=== PATIENT | female | born 1935 | race Hispanic/Latino ===

== ENCOUNTER 2017-08-28 11:44 | Emergency (ER) | payer MEDICARE, OTHER ==
[~2017-08-28] VITALS: Ht 149.9 cm; Wt 60.8 kg
[~2017-08-28 11:44] MED LIST: ADVAIR 250/501 EA INH; ASPIRIN81 M2 PO; ATIVAN1 MG PO; FISH OIL PO; FLOMAX0.4 MG PO; MICARDIS HCT 41 EACH PO; MONTELUKAST SOD10 MG PO; PANTOPRAZOLE SO40 MG PO; VENTOLIN HFA18 GM INH; Z.0.ACIPHEX20 MG; Z.0.MICARDIS80 MG PO; Z.0.MULTIVITAMINS1 E PO; [UNRECOGNIZED DRUG - OTHER] PO
[2017-08-28] MEDS ORDERED: ASPIRIN 81 MG CHEW TAB PO STA (12:03)
--- NOTE | 2017-08-28 13:18 | Diagnostic Imaging Report ---
PROCEDURE: A single AP view of the chest. COMPARISON: 04/28/17 INDICATIONS: SHORTNESS OF BREATH, LEFT HAND NUMBNESS FINDINGS: Lines/tubes: None. Lungs: The lungs are well inflated and clear. There is no evidence of pneumonia or pulmonary edema. Minimal bibasilar haziness, likely subsegmental atelectasis. Pleura: There is no pleural effusion or pneumothorax. Heart and mediastinum: The heart and the mediastinum are unremarkable. Aorta is calcified and tortuous. Bones: No acute bony abnormality. IMPRESSION: 1. No acute cardiopulmonary disease. 2. Minimal bibasilar haziness, likely subsegmental atelectasis. Dictated by: Gilberto Gatica M.D. on 08/28/2017 at 13:27 Electronically approved by: Gilberto Gatica M.D. on 08/28/2017 at 13:27
--- NOTE | 2017-08-28 13:25 | Diagnostic Imaging Report ---
Exam: Head CT without contrast History: Numbness in left hand Comparison studies: Brain MRI 01/25/2011. Technique: Axial images were obtained from the skull base to the vertex. Coronal and sagittal images reconstructed from the axial data. Intravenous contrast: None Findings: Scalp: No abnormalities. Bones: No fractures, blastic or lytic lesions. Brain sulci: Mildly prominent, but age appropriate. Ventricles: Normal in size and configuration. No hydrocephalus. Extra-axial spaces: No masses, no fluid collection. Parenchyma: No mass, acute hemorrhage or acute cortical vascular insults. A few scattered subtle hypodensities in the supratentorial white matter are nonspecific but most compatible with chronic small vessel ischemic changes. Small chronic insult in the right posterior cerebellum is new from the previous brain MRI. Sellar/suprasellar region: No abnormalities. 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 Incidental findings: Atherosclerotic calcifications in the carotid siphons. IMPRESSION: 1. No acute intracranial abnormalities. 2. Small chronic right cerebellar insult, new from previous exam. 3. No other significant changes from the previous brain MRI of 01/25/2011 when allowing for differences in technique. 4. Mild age-related generalized volume loss and chronic microvascular ischemic changes. Signed by: Dr. Tahir Mena M.D. on 08/28/2017 1:22 PM
[2017-08-28 13:54] LABS: BASOPHILS % 0.4 % (0.0-1.0); HEMATOCRIT 35.5 % (34.2-44.1); HEMOGLOBIN 12.2 g/dL (12.0-16.0); LYMPHOCYTES # (AUTO) 0.8 (1.0-3.2); LYMPHOCYTES % 14.5 % (18.0-39.1); MEAN CORPUSCULAR HEMOGLOBIN 32.7 pg (28-32); MEAN CORPUSCULAR HGB CONC 34.4 g/dL (31-35); MEAN CORPUSCULAR VOLUME 95.2 fL (81-99); MONOCYTES # (AUTO) 0.3 (0.2-0.8); MONOCYTES % 5.1 % (4.4-11.3); NEUTROPHILS # (AUTO) 4.4 (2.1-6.9); NEUTROPHILS % 79.6 % (38.7-80.0); PLATELET COUNT 173 x10e3/uL (140-360); RED BLOOD COUNT 3.73 x10e6/uL (3.6-5.1); RED CELL DISTRIBUTION WIDTH 13.2 % (11.7-14.4)
[2017-08-28 14:09] LABS: INR 0.95; PROTHROMBIN TIME 13.1 seconds (11.9-14.5)
[2017-08-28 14:12] LABS: ALBUMIN 4.2 g/dL (3.5-5.0); ALBUMIN/GLOBULIN RATIO 1.3 (0.8-2.0); ANION GAP 12.5 mmol/L (8-16); CALCIUM 9.5 mg/dL (8.4-10.2); CREATININE, SERUM 0.97 mg/dL (0.57-1.11); POTASSIUM 3.5 mmol/L (3.5-5.1)
[2017-08-28 14:19] LABS: CREATINE KINASE MB 1.6 ng/mL (0.00-5.00)
[2017-08-28] MEDS ORDERED: SULFAMETHOXAZO1 EAC1 PO (14:57)
[2017-08-28] MEDS ORDERED: CALTRATE PLUS1 EACH PO (14:57)
[2017-08-28] MEDS ORDERED: LEVAQUIN250 MG PO (14:57)
[2017-08-28] MEDS ORDERED: METHYLPREDNISOLONE SOD SUCC 125 MG/2ML VIAL IV ONE (15:45)
[2017-08-28] MEDS ORDERED: PREDNISONE20 MG PO (15:52)
[2017-08-28] MEDS ORDERED: ALBUTEROL0.63 MG/3 IH (15:52)
== END 2017-08-28 16:15 | disposition home or self-care (01) ==
LOC: ER 11:44
DX: R06.09 Other forms of dyspnea (principal); J20.9 Acute bronchitis, unspecified; R20.2 Paresthesia of skin
CPT/HCPCS: 36415; 70450; 71010; 80053; 82550; 82553; 83690; 83880; 84484; 85025; 85610; 93005; 99284; J2930; 71045

== ENCOUNTER → 2017-09-02 | Emergency (ER) | payer MEDICARE, OTHER ==
[~2017-09-02] VITALS: Ht 149.9 cm; Wt 60.8 kg
[~2017-09-02] MED LIST changes: +ALBUTEROL0.63 MG/3 IH; +CALTRATE PLUS1 EACH PO; +LEVAQUIN250 MG PO; +PREDNISONE20 MG PO; +SULFAMETHOXAZO1 EAC1 PO
== END | disposition home or self-care (01) ==
LOC: ER 20:50
DX: R06.00 Dyspnea, unspecified (principal); R05 Cough; J20.9 Acute bronchitis, unspecified; I10 Essential (primary) hypertension
CPT/HCPCS: 99281

== ENCOUNTER → 2018-02-16 | Day surgery (SDC) | payer MEDICARE, OTHER ==
[2018-02-14 10:38] LABS: BASOPHILS % 0.6 % (0.0-1.0); EOSINOPHILS % 0.4 % (0.0-6.0); HEMATOCRIT 31.8 % (34.2-44.1); HEMOGLOBIN 10.8 g/dL (12.0-16.0); LYMPHOCYTES # (AUTO) 1.4 (1.0-3.2); LYMPHOCYTES % 26.7 % (18.0-39.1); MEAN CORPUSCULAR HEMOGLOBIN 32.3 pg (28-32); MEAN CORPUSCULAR VOLUME 95.2 fL (81-99); MONOCYTES # (AUTO) 0.4 (0.2-0.8); MONOCYTES % 7.7 % (4.4-11.3); NEUTROPHILS # (AUTO) 3.3 (2.1-6.9); NEUTROPHILS % 64.2 % (38.7-80.0); PLATELET COUNT 200 x10e3/uL (140-360); RED BLOOD COUNT 3.34 x10e6/uL (3.6-5.1); RED CELL DISTRIBUTION WIDTH 11.7 % (11.7-14.4)
[~2018-02-16] MED LIST changes: +AZO STANDARD97.5 MG PO; +BACTRIM 400-801 EACH; +BELLADONNA/OPIUM 30 MG SUPP RC ONE; +CEFTRIAXONE SOD 1 GM VIAL ONE; +DEXAMETHASONE SOD PHOS INJ 4 MG/ML VIAL ONE; +FENTANYL CITRATE/PF 100MCG/2 ML INJ ONE; +GENTAMICIN SULFATE 320 MG in SODIUM CHLORIDE 0.9% 100 ML 100 ML IV SCH; +IOPAMIDOL 300MG/ML 50ML INFUS..BTL IV ONE; +LIDOCAINE HCL 2% LOCAL INJ 5 ML SDV VIAL INJ ONE; +MELOXICAM7.5 MG PO; +ONDANSETRON HCL INJ 2 MG/ML VIAL ONE; +PEPCID20 MG PO; +PROPOFOL IV EMULSION 10 MG/ML 20 ML VIAL ONE; +SEVOFLURANE INHAL SOLN 250 ML PEN BTL ONE
[2018-02-16 12:36] LABS: ANION GAP 13.2 mmol/L (8-16); BLOOD UREA NITROGEN 15 mg/dL (7-26); BUN/CREATININE RATIO 19 (6-25); CALCIUM 9.5 mg/dL (8.4-10.2); CARBON DIOXIDE 25 mmol/L (22-29); CHLORIDE 98 mmol/L (98-107); CREATININE, SERUM 0.78 mg/dL (0.57-1.11); EST GLOMERULAR FILTRATION RATE > 60 ML/MIN (60-); GLUCOSE 98 mg/dL (74-118); POTASSIUM 4.2 mmol/L (3.5-5.1); SODIUM 132 mmol/L (136-145)
--- NOTE | 2018-04-05 01:38 | Operative Report ---
DATE OF PROCEDURE: February 16, 2018 PREOPERATIVE DIAGNOSES: 1. Gross hematuria. 2. Urinary tract infections. POSTOPERATIVE DIAGNOSES: 1. Gross hematuria. 2. Urinary tract infections. 3. Mild cystocele. 4. Mild rectocele. 5. Atrophic (senile) vaginitis. OPERATIONS PERFORMED: 1. Cystourethroscopy with bilateral ureteral catheterization and retrograde ureteropyelography (separate procedure performed for the urinary tract infections). 2. Interpretation of retrograde ureteropyelography. 3. Supervision of fluoroscopy, no radiologist present. 4. Cystourethroscopy with directed bladder biopsy (separate procedure performed for the abnormal-appearing bleeding bladder tissue). 5. Pelvic examination under anesthesia. ANESTHESIA: General. COMPLICATIONS: None. CLINICAL SUMMARY: Maria L Stokes is an 82-year-old woman with hematuria and urinary tract infections. She is brought for evaluation. She is aware of the risks of bleeding, infection, injury to adjacent structures, need for additional procedures, and elected to proceed. OPERATIVE PROCEDURE IN DETAIL: Informed consent was verified. Maria L Stokes was properly identified, taken to the operating room, and placed on the cystoscopy table in the supine position. Anesthesia was uneventfully begun. The patient was then carefully and gently repositioned in the dorsal lithotomy position with all pressure points well padded. Her genitalia were prepared and draped in usual sterile fashion. The 22.5-Cypriot cystoscope sheath with the obturator in place was atraumatically inserted into patient's urethra and the bladder was drained. Panendoscopy revealed glomerulations with diffuse cracking and oozing of the bladder wall. No suspicious specific lesions were identified, but there were bleeding points throughout the bladder wall. An 8-Cypriot catheter was used to cannulate each ureter, and retrograde ureteral pyelograms were performed. Interpretation of retrograde ureteropyelography: Contrast was instilled in retrograde fashion bilaterally. There were no tumors, no stones, and no diverticula. Unobstructed drainage was observed bilaterally fluoroscopically. There was mild fullness in both upper collecting systems, but without obstruction. Cold cup biopsy forceps were then utilized to biopsy the posterior as well as anterior portions of the bladder. Multiple biopsies were obtained. All these biopsies sites were fulgurated with a Bugbee electrode. Excellent hemostasis was achieved. Nevertheless, 22-Cypriot Thomson catheter was placed. Pelvic examination under anesthesia revealed atrophic vaginitis with a grade 1 cystorectocele. No abnormal palpable pelvic masses could be appreciated. The patient was then uneventfully reversed from anesthesia and taken to recovery room in stable condition. Explicit postoperative instructions were given, and will follow the patient up in the office as well as on an ongoing basis. Job#: [id number]
== END | disposition home or self-care (01) ==
LOC: OR 10:41
PROVIDERS: ATTEND Urology
DX: N39.0 Urinary tract infection, site not specified (principal); D30.3 Benign neoplasm of bladder; N32.89 Other specified disorders of bladder; R31.0 Gross hematuria; N81.10 Cystocele, unspecified; N81.89 Other female genital prolapse; R35.1 Nocturia; N81.6 Rectocele; N95.2 Postmenopausal atrophic vaginitis; I10 Essential (primary) hypertension; K21.9 Gastro-esophageal reflux disease without esophagitis; J45.909 Unspecified asthma, uncomplicated; F41.9 Anxiety disorder, unspecified; Z01.810 Encounter for preprocedural cardiovascular examination; Z01.812 Encounter for preprocedural laboratory examination
CPT/HCPCS: 36415 ×2; 52214; 74420; 80048; 85025; 87086; 88305; 88342; 93005; C1758; J0696; J1100; J1580; J2001; J2405; Q9967

== ENCOUNTER 2018-03-22 18:34 | Emergency (ER) | payer MEDICARE ==
[~2018-03-22] VITALS: Ht 172.7 cm; Wt 55.8 kg
[~2018-03-22 18:34] MED LIST changes: -BELLADONNA/OPIUM 30 MG SUPP RC ONE; -CEFTRIAXONE SOD 1 GM VIAL ONE; -DEXAMETHASONE SOD PHOS INJ 4 MG/ML VIAL ONE; -FENTANYL CITRATE/PF 100MCG/2 ML INJ ONE; -GENTAMICIN SULFATE 320 MG in SODIUM CHLORIDE 0.9% 100 ML 100 ML IV SCH; -IOPAMIDOL 300MG/ML 50ML INFUS..BTL IV ONE; -LIDOCAINE HCL 2% LOCAL INJ 5 ML SDV VIAL INJ ONE; -MELOXICAM7.5 MG PO; -ONDANSETRON HCL INJ 2 MG/ML VIAL ONE; -PEPCID20 MG PO; -PROPOFOL IV EMULSION 10 MG/ML 20 ML VIAL ONE; -SEVOFLURANE INHAL SOLN 250 ML PEN BTL ONE
--- NOTE | 2018-03-22 20:16 | Diagnostic Imaging Report ---
EXAM: RIBS UNILAT W/CXR- HOPD DATE: 03/22/2018 7:34 PM INDICATION: \[id number] \S\[id number] COMPARISON: None FINDINGS: Single view chest: The heart is not enlarged. Aortic vascular calcifications and tortuosity of the descending thoracic aorta noted. There is minimal atelectasis/scarring in the left lung base with postsurgical changes at the GE junction. No pneumothorax is identified. Left rib series: Rib radiographs are underpenetrated which limits evaluation. No definite depressed rib fracture identified. IMPRESSION: Within limitations of technique, no definite acute finding. Signed by: Dr. Umair Goldstein MD on 03/22/2018 8:13 PM
[2018-03-22] MEDS ORDERED: MELOXICAM7.5 MG PO (20:59)
[2018-03-22] MEDS ORDERED: PEPCID20 MG PO (20:59)
== END 2018-03-22 21:17 | disposition home or self-care (01) ==
LOC: FSED 18:34
DX: R07.89 Other chest pain (principal); S20.212A Contusion of left front wall of thorax, initial encounter; W01.0XXA Fall on same level from slipping, tripping and stumbling without subsequent striking against object, initial encounter; Y93.01 Activity, walking, marching and hiking; Y92.008 Other place in unspecified non-institutional (private) residence as the place of occurrence of the external cause
CPT/HCPCS: 71101; 99283

== ENCOUNTER 2018-12-10 11:57 | Emergency (ER) | payer MEDICARE ==
[~2018-12-10] VITALS: Ht 149.9 cm; Wt 53.5 kg
[~2018-12-10 11:57] MED LIST changes: +MELOXICAM7.5 MG PO; +PEPCID20 MG PO
--- OUTSIDE RECORDS SUMMARY | 2018-12-10 12:01 | XMS REPORT | Summary of Care ---
Author Author Aylin Donald M.A. Organization Unknown Address Unknown Phone Unavailable Care Team Providers Care Wildlife Manager Name Role Phone Aylin Donald M.A. Unavailable Unavailable TE SPIVEY MD Unavailable Unavailable ESTHER GRIJALVA Unavailable Unavailable Unavailable Unavailable Functional Status Name Dates Details Functional status health issues are not documented Status: Name Dates Details Cognitive status health issues are not documented Status: Problems Name Dates Details Bilateral hearing loss (389.9, H91.93) Status: Active Medications Name Dates Details Telmisartan TABS Active Pantoprazole Sodium TBEC * Refills: 0 Active Tamsulosin HCl CAPS * Refills: 0 Active Levothyroxine Sodium TABS * Refills: 0 Active Allergies and Adverse Reactions Name Dates Details No Known Drug Allergies (Allergy) Status: Active Past Medical History Name Dates Details History of arthritis (V13.4, Z87.39) Status: Resolved History of hypertension (V12.59, Z86.79) Status: Resolved Procedures Procedure Dates Details History of Hernia Repair Completed History of Silver bunionectomy Completed Immunization Name Dates Details Immunizations not documented Family History Name Dates Details No significant family history (V49.89, Z78.9) Comments: Family History Status: Active Social History Name Dates Details - Status: Name Dates Details Never smoker Vital Signs Date Test Result Details No Known Vitals to report Results Date Description Value Details Results not documented Plan of Care Name Dates Details Planned Observations Planned Goals not documented Instructions Name Dates Details Instructions not documented Encounters Appointment; TE SPIVEY M.D. Encounter Diagnosis: Problem not documented On: 27-Aug-2018 13:15 Appointment; ESTHER AVILA Encounter Diagnosis: Problem not documented On: 21-Sep-2018 13:00 Appointment; TE SPIVEY M.D. Encounter Diagnosis: Problem not documented On: 21-Sep-2018 13:30 Appointment; TE SPIVEY M.D. Encounter Diagnosis: Problem not documented On: 24-Sep-2018 15:00 Appointment; ESTHER AVILA Encounter Diagnosis: Problem not documented On: 20-Nov-2018 15:30
--- OUTSIDE RECORDS SUMMARY | 2018-12-10 12:01 | XMS REPORT | Continuity of Care Document ---
Author Author [facility] Interface Address Unknown Phone Unavailable Problems Problem Status Onset Date Classification Date Reported Comments Source STRESS FX LEFT FOOT 4TH Active 01/03/2018 [facility] 553.3/280.9/787.20 Active 11/04/2014 [facility] UNK Active 11/04/2014 [facility] RIGHT SHOULDER Active 02/10/2014 [facility] Asthma Active Problem 01/28/2018 [facility] COPD - Chronic obstructive pulmonary disease Active Problem 01/28/2018 [facility] Hiatal hernia Active Problem 01/28/2018 [facility] Hypertension Active Problem 01/28/2018 [facility] Bladder mass Active Problem 03/23/2018 [facility] Hematuria Active Problem 03/23/2018 [facility] UTI Active Problem 03/23/2018 [facility] Medications Medication Details Route Status Patient Instructions Ordering Provider Order Date Source Famotidine (Pepcid) 20 Mg Tablet Twice A Day Active take while on meloxicam to prevent stomach upset/irritation Juan 03/22/2018 [facility] Meloxicam 7.5 Mg Tablet Daily Active Gil 03/22/2018 [facility] Calcium Carb/Vit D3/Minerals (Caltrate Plus Tablet) 1 Each Tablet, 1 Tab Oral Daily Active 02/14/2018 [facility] Pantoprazole Sodium (Protonix) 40 Mg Tablet.dr, 40 Mg Oral Daily Active 02/14/2018 [facility] Levofloxacin (Levaquin) 250 Mg Tablet, 250 Mg Oral Daily Active 09/02/2017 [facility] Sulfamethoxazole/Trimethoprim (Sulfamethoxazole-Tmp Ds Tablet) 1 Each Tablet, 1 Tab Oral Daily Active 09/02/2017 [facility] Tamsulosin Hcl (Flomax*) 0.4 Mg Cap, 0.4 Mg Oral Daily Active 09/02/2017 [facility] Albuterol Sulfate 0.63 Mg/3 Ml Vial.neb, 1-2 Inh Inhalation Every Two Hours as needed for Shortness Of Breath Active [facility] 08/28/2017 [facility] Prednisone 20 Mg Tab, 40 Mg Oral Daily Active [facility] 08/28/2017 [facility] Montelukast Sodium 10 Mg Tablet, 40 Mg Oral Daily Active 09/16/2016 [facility] Fish Oil 0 Refill(s) Active 11/11/2014 [facility] telmisartan 0 Refill(s) Active 11/11/2014 [facility] montelukast 10 mg oral tablet 10 mg=1 tab, PO, Bedtime, # 30 tab, 0 Refill(s) Active 11/11/2014 [facility] pantoprazole 40 mg oral enteric coated tablet 40 mg=1 tab, PO, Daily, # 30 tab, 0 Refill(s) Active 11/11/2014 [facility] Ventolin HFA 90 mcg/inh inhalation aerosol with adapter 2 puff, INHALATION, QID, # 34 gm, 0 Refill(s) Active 11/11/2014 [facility] Aspirin 81 Mg Tablet, 81 Mg Oral Daily Active 10/21/2014 [facility] Ca Citrate/Mgox/Vit D3/B6/Min (Citracal Plus Tablet) 1 Each Tablet, 1 Each Oral Daily Active 10/21/2014 [facility] Fish Oil , Oral Daily Active 10/21/2014 [facility] Multivitamin (Multivitamins) 1 Each Tab.chew, Oral Daily Active 10/21/2014 [facility] Rabeprazole Sodium (Aciphex) 20 Mg Tablet., Active 10/21/2014 [facility] Salmeterol Xinaf/Fluticasone (Advair 250/50) 1 Ea Disk, 1 Ea Inhalation as needed Active 10/21/2014 [facility] Telmisartan (Micardis) 80 Mg Tablet, 80 Mg Oral Daily Active 10/21/2014 [facility] Pantoprazole Sodium (Protonix) 40 Mg Tablet. Daily Active [facility] Phenazopyridine Hcl (Azo Standard) 97.5 Mg Tablet Daily Active [facility] Sulfamethoxazole/Trimethoprim (Bactrim 400-80 Mg Tablet) 1 Each Tablet Twice A Day Active [facility] Tamsulosin Hcl (Flomax*) 0.4 Mg Cap Daily Active [facility] Telmisartan/Hydrochlorothiazid (Micardis Hct 40-12.5 Mg Tablet) 1 Each Tablet Daily Active [facility] Allergies, Adverse Reactions, Alerts Substance Category Reaction Severity Reaction type Status Date Reported Comments Source No Known Drug Allergies Mild Allergy to Substance Active 03/22/2018 [facility] Immunizations Immunization Date Given Site Status Last Updated Comments Source Results Order Name Results Value Reference Range Date Interpretation Comments Source Estimated glomerular filtration rate (GFR) determination Estimated glomerular filtration rate (GFR) determination null 60 02/16/2018 [facility] Glucose measurement Glucose measurement 98 74 - 118 02/16/2018 [facility] Serum or plasma anion gap Serum or plasma anion gap 13.2 8 - 16 02/16/2018 [facility] Serum or plasma calcium measurement (mass/volume) Serum or plasma calcium measurement (mass/volume) 9.5 8.4 - 10.2 02/16/2018 [facility] Serum or plasma carbon dioxide, total measurement (moles/volume) Serum or plasma carbon dioxide, total measurement (moles/volume) 25 22 - 29 02/16/2018 [facility] Serum or plasma chloride measurement (moles/volume) Serum or plasma chloride measurement (moles/volume) 98 98 - 107 02/16/2018 [facility] Serum or plasma creatinine measurement (mass/volume) Serum or plasma creatinine measurement (mass/volume) 0.78 0.57 - 1.11 02/16/2018 [facility] Serum or plasma potassium measurement (moles/volume) Serum or plasma potassium measurement (moles/volume) 4.2 3.5 - 5.1 02/16/2018 [facility] Serum or plasma sodium measurement (moles/volume) Serum or plasma sodium measurement (moles/volume) 132 136 - 145 02/16/2018 [facility] Serum or plasma urea nitrogen measurement (mass/volume) Serum or plasma urea nitrogen measurement (mass/volume) 15 7 - 26 02/16/2018 [facility] Serum or plasma urea nitrogen/creatinine mass ratio Serum or plasma urea nitrogen/creatinine mass ratio 19 6 - 25 02/16/2018 [facility] Automated blood basophil count (count/volume) Automated blood basophil count (count/volume) 0.0 0.0 - 0.1 02/14/2018 [facility] Automated blood basophil count as percentage of total leukocytes Automated blood basophil count as percentage of total leukocytes 0.6 0.0 - 1.0 02/14/2018 [facility] Automated blood eosinophil count Automated blood eosinophil count 0.0 0.0 - 0.4 02/14/2018 [facility] Automated blood eosinophil count as percentage of total leukocytes Automated blood eosinophil count as percentage of total leukocytes 0.4 0.0 - 6.0 02/14/2018 [facility] Automated blood hematocrit (volume fraction) Automated blood hematocrit (volume fraction) 31.8 34.2 - 44.1 02/14/2018 [facility] Automated blood lymphocyte count as percentage ot total leukocytes Automated blood lymphocyte count as percentage ot total leukocytes 26.7 18.0 - 39.1 02/14/2018 [facility] Automated blood monocyte count as percentage of total leukocytes Automated blood monocyte count as percentage of total leukocytes 7.7 4.4 - 11.3 02/14/2018 [facility] Automated blood neutrophil count Automated blood neutrophil count 3.3 2.1 - 6.9 02/14/2018 [facility] Automated blood platelet count (count/volume) Automated blood platelet count (count/volume) 200 140 - 360 02/14/2018 [facility] Automated blood segmented neutrophil count as percentage of total leukocytes Automated blood segmented neutrophil count as percentage of total leukocytes 64.2 38.7 - 80.0 02/14/2018 [facility] Automated erythrocyte mean corpuscular hemoglobin (mass per erythrocyte) Automated erythrocyte mean corpuscular hemoglobin (mass per erythrocyte) 32.3 28 - 32 02/14/2018 [facility] Automated erythrocyte mean corpuscular hemoglobin concentration measurement (mass/volume) Automated erythrocyte mean corpuscular hemoglobin concentration measurement (mass/volume) 34.0 31 - 35 02/14/2018 [facility] Automated erythrocyte mean corpuscular volume Automated erythrocyte mean corpuscular volume 95.2 81 - 99 02/14/2018 [facility] Blood erythrocytes automated count (number/volume) Blood erythrocytes automated count (number/volume) 3.34 3.6 - 5.1 02/14/2018 [facility] Blood hemoglobin measurement (moles/volume) Blood hemoglobin measurement (moles/volume) 10.8 12.0 - 16.0 02/14/2018 [facility] Blood leukocytes automated count (number/volume) Blood leukocytes automated count (number/volume) 5.06 4.8 - 10.8 02/14/2018 [facility] Blood lymphocytes count (number/volume) Blood lymphocytes count (number/volume) 1.4 1.0 - 3.2 02/14/2018 [facility] Blood monocytes automated count (number/volume) Blood monocytes automated count (number/volume) 0.4 0.2 - 0.8 02/14/2018 [facility] Red Cell Distribution Width 11.7 11.7 - 14.4 02/14/2018 [facility] IM GRANULOCYTES % 0.4 0.0 - 1.0 02/14/2018 [facility] Absolute Immature Granulocyte (auto 0.02 0 - 0.1 02/14/2018 [facility] Bone scan 3 phase NM Bone scan 3 phase NM Bone scan 3 phase NM CLINICAL HISTORY: - stress fracture left 4th metatarsal. ; COMPARISON: none TECHNIQUE: 27 mCi of technetium 99m MDP were administered intravenously. Flow, blood pool and delayed images of both feet were performed in AP, PA and lateral projections. IV Site: Left Antecubital FINDINGS: The flow images are relatively symmetric and do not demonstrate any significant asymmetry in flow. The blood pool images demonstrate mild to moderate increase in tracer activity in the hindfoot in the region of the left ankle. The delayed images demonstrate persistent increase in tracer activity in the hindfoot region near the ankle. No discrete focus of abnormal activity is noted in the left fourth metatarsal bone. IMPRESSION: No discrete focus of abnormal activity is noted in the region of left fourth metatarsal bone. SL: [id number] 01/25/2018 - - Read by: Jose Daniel Granger MD Dictated Date/time: 01/25/18 15:25 Electronically Signed by: Jose Daniel Granger MD 01/25/18 15:29 FINAL REPORT [facility] INR in Platelet poor plasma by Coagulation assay INR in Platelet poor plasma by Coagulation assay 0.95 08/28/2017 [facility] Plasma globulin measurement (mass/volume) Plasma globulin measurement (mass/volume) 3.2 2.3 - 3.5 08/28/2017 [facility] Prothrombin time (PT) in platelet poor plasma by coagulation assay Prothrombin time (PT) in platelet poor plasma by coagulation assay 13.1 11.9 - 14.5 08/28/2017 [facility] Serum or plasma alanine aminotransferase measurement (enzymatic activity/volume) Serum or plasma alanine aminotransferase measurement (enzymatic activity/volume) 13 0 - 55 08/28/2017 [facility] Serum or plasma albumin measurement (mass/volume) Serum or plasma albumin measurement (mass/volume) 4.2 3.5 - 5.0 08/28/2017 [facility] Serum or plasma albumin/globulin mass ratio Serum or plasma albumin/globulin mass ratio 1.3 0.8 - 2.0 08/28/2017 [facility] Serum or plasma alkaline phosphatase measurement (enzymatic activity/volume) Serum or plasma alkaline phosphatase measurement (enzymatic activity/volume) 72 40 - 150 08/28/2017 [facility] Serum or plasma creatine kinase MB measurement (mass/volume) Serum or plasma creatine kinase MB measurement (mass/volume) 1.60 0.00 - 5.00 08/28/2017 [facility] Serum or plasma creatine kinase measurement (enzymatic activity/volume) Serum or plasma creatine kinase measurement (enzymatic activity/volume) 57 29 - 168 08/28/2017 [facility] Serum or plasma lipase measurement (enzymatic activity/volume) Serum or plasma lipase measurement (enzymatic activity/volume) 38 8 - 78 08/28/2017 [facility] Serum or plasma protein measurement (mass/volume) Serum or plasma protein measurement (mass/volume) 7.4 6.5 - 8.1 08/28/2017 [facility] Serum or plasma total bilirubin measurement (mass/volume) Serum or plasma total bilirubin measurement (mass/volume) 0.3 0.2 - 1.2 08/28/2017 [facility] Troponin I measurement by highly sensitive enzyme immunoassay Troponin I measurement by highly sensitive enzyme immunoassay 0.009 0 - 0.300 08/28/2017 [facility] Aspartate Amino Transf (AST/SGOT) 15 5 - 34 08/28/2017 [facility] B-Type Natriuretic Peptide 74.5 0 - 100 08/28/2017 [facility] Vital Signs Vital Sign Value Date Comments Source Systolic (mm Hg) 123 11/12/2014 [facility] Diastolic (mm Hg) 64 11/12/2014 [facility] Respitory Rate 18 11/12/2014 [facility] Heart Rate 70 11/12/2014 [facility] Weight 66.591 11/11/2014 [facility] Height 149.86 cm 11/11/2014 [facility] BMI Calculated 29.65 11/11/2014 [facility] Encounters Location Location Details Encounter Type Encounter Number Reason For Visit Attending Provider ADM Date DC Date Status Source [facility] OP Therapy Patients [id number] Uriel Weir 02/10/2014 03/12/2014 [facility] Bedded Outpatient [id number] Brandin Bacon 11/12/2014 11/12/2014 [facility] [id number] SHERRELL BARROW MD 06/13/2017 [facility] Departed Emergency Room [id number] NANCY BYRNE MD 08/28/2017 08/28/2017 [facility] Departed Emergency Room [id number] HENNY TORRES MD 09/02/2017 09/02/2017 [facility] Outpatient [id number] Marvin Yuen 01/25/2018 01/26/2018 [facility] [id number] ELIDA GILL MD 02/16/2018 [facility] Registered Emergency Room [id number] DEVYN GIL MD 03/22/2018 [facility] Procedures Procedure Code Date Perfomer Comments Source Cystoscopy with retrograde pyelography [id number] 02/16/2018 JAIRO [facility] Computed tomography of brain without radiopaque contrast [id number] 08/28/2017 CATY [facility] Colonoscopy [id number] 06/06/2014 [facility] Esophagogastroduodenoscopy [id number] 06/06/2014 [facility] section [id number] [facility] Adri-Ezequiel operation for hiatal hernia repair with esophagogastroplasty<sup>1</sup> [id number] 2005 [facility]
--- OUTSIDE RECORDS SUMMARY | 2018-12-10 12:01 | XMS REPORT | Clinical Summary ---
Author Author Mark [facility] Organization [facility] Address Unknown Phone Unavailable Care Team Providers Care Toe Former St[employer] Name Role Phone PCP Unavailable Allergies No Known Allergies Medications End Date Status Medication Sig Dispensed Refills Start Date Active pantoprazole (PROTONIX) Take 40 mg by 0 40 MG EC tablet mouth daily. Active telmisartan-hydrochloroth Take 1 tablet 0 iazid (MICARDIS HCT) by mouth 40-12.5 mg per tablet daily. Active multivitamin (THERAGRAN) Take 1 tablet 0 tablet by mouth daily. Active calcium carbonate-vitamin Take 1 tablet 0 D3 500 mg-200 unit per by mouth tablet daily. Active pantoprazole (PROTONIX) TAKE ONE 90 tablet 0 40 MG EC tablet TABLET BY 9 MOUTH EVERY DAY 02/02/2018 Discontinued pantoprazole (PROTONIX) TAKE ONE 90 tablet 0 40 MG EC tablet TABLET BY 8 MOUTH EVERY DAY 03/05/2018 Discontinued pantoprazole (PROTONIX) TAKE ONE 90 tablet 0 40 MG EC tablet TABLET BY 8 MOUTH EVERY DAY 08/06/2018 Discontinued pantoprazole (PROTONIX) TAKE ONE 90 tablet 0 40 MG EC tablet TABLET BY 8 MOUTH EVERY DAY 11/13/2018 Discontinued pantoprazole (PROTONIX) TAKE ONE 90 tablet 0 40 MG EC tablet TABLET BY 9 MOUTH EVERY DAY Active Problems Problem Noted Date Chronic obstructive pulmonary disease 09/27/2016 Encounters Care Team Description Date Type Specialty Isaias Silva MD 11/13/2018 Refill Gastroenterology Isaias Silva MD 08/06/2018 Refill Gastroenterology Isaias Silva MD 03/04/2018 Refill Gastroenterology Isaias Silva MD 02/02/2018 Refill Gastroenterology after 12/09/2017 Family History Medical History Relation Name Comments Diabetes Child Hypertension Child Relation Name Status Comments Child Social History Date Tobacco Use Types Packs/Day Years Used Never Smoker Alcohol Use Drinks/Week oz/Week Comments No Sex Assigned at Date Recorded Not on file Industry Job Start Date Occupation Not on file Not on file Not on file Travel End Travel History Travel Start No recent travel history available. Last Filed Vital Signs Not on file Plan of Treatment Health Maintenance Due Date Last Done Comments SHINGLES VACCINES (#1) 1984 65+ PNEUMOCOCCAL VACCINE 11/10/1999 (1 of 2 - PCV13) PNEUMOCOCCAL 11/10/1999 POLYSACCHARIDE VACCINE AGE 65 AND OVER INFLUENZA VACCINE 03/07/2019 Results Not on fileafter 12/09/2017 Insurance Payer Benefit Subscriber ID Type Phone Address Plan / Group HUMANA MEDICARE HUMANA xxxxxxxxx PPO MEDICARE PPO/PFFS/E [facility] ([place] [place] [address] Advance Directives Patient has advance care planning documents on file. For more information, andrey granado contact: Mark Manjarrez [address] [place] [address]
--- NOTE | 2018-12-10 13:31 | Diagnostic Imaging Report ---
Exam: Sacrum and coccyx, 2 views History: Fall, pain in tailbone Comparison: None. Findings: The bones are diffusely osteopenic, which limits evaluation. In addition, a large amount of rectal gas and stool limits evaluation of the low sacrum, coccyx, and pubic symphysis on the frontal radiographs. There is a step-off measuring 5 mm between the first and second coccygeal segments identified on the lateral radiograph. Transitional lumbosacral anatomy. Sacral foramina are intact superiorly. Sacroiliac joints are maintained. Impression: Acute mildly displaced fracture/dislocation between the first and second coccygeal segments. Signed by: Dr. Tahir Jones M.D. on 12/10/2018 1:28 PM
[2018-12-10 14:23] VITALS: BP 147/72
== END 2018-12-10 14:39 | disposition home or self-care (01) ==
LOC: FSED 11:57
DX: S32.2XXA Fracture of coccyx, initial encounter for closed fracture (principal); W18.30XA Fall on same level, unspecified, initial encounter; Y92.008 Other place in unspecified non-institutional (private) residence as the place of occurrence of the external cause; K21.9 Gastro-esophageal reflux disease without esophagitis
CPT/HCPCS: 72220; 99283

== ENCOUNTER → 2019-01-03 | Outpatient (CLI) | payer MEDICARE ==
--- NOTE | 2019-01-03 10:45 | Diagnostic Imaging Report ---
EXAM: CT Chest without contrast INDICATION: Pulmonary nodule COMPARISON: Chest and rib radiographs 03/22/2018. CT chest 09/22/2016. Multiple prior chest CTs dating back to 01/28/2014. TECHNIQUE: Chest was scanned utilizing a multidetector helical scanner from the lung apex through the level of the adrenal glands without administration of IV contrast. Coronal and sagittal reformations were obtained. Routine protocol was performed. RADIATION DOSE: Total DLP: 114.9 mGy*cm Dose modulation, iterative reconstruction, and/or weight based adjustment of the mA/kV was utilized to reduce the radiation dose to as low as reasonably achievable. COMPLICATIONS: None FINDINGS: LINES/ TUBES: None. LUNGS AND AIRWAYS: The central airways are patent. There is mild biapical pleural-parenchymal opacity, consistent with prior granulomatous disease. Scattered calcified granulomas, for example a 3 mm granuloma in the right upper lobe on series 3, image 20. Unchanged 8 mm right lower lobe ovoid lung nodule (series 3, image 50) since CT on 09/22/2016 and slightly increased in size from 7 mm on 01/28/2014. Scattered punctate noncalcified solid nodules, for example a 2 mm left lower lobe nodule on image 67 and a 1 mm right upper lobe nodule on image 35. There are mild lower lung and peripheral predominant reticular opacities with mild honeycombing, for example in the left lower lobe on image 100. Scattered mild emphysematous changes. Hyperinflated lungs with increased AP diameter of the thorax. PLEURA: The pleural spaces are clear. HEART AND MEDIASTINUM: The thyroid gland is not well evaluated. No mediastinal, hilar or axillary lymphadenopathy. No cardiomegaly or pericardial effusion. Scattered coronary atherosclerosis. Extensive atherosclerotic calcifications of the aortic arch and scattered atherosclerotic calcifications of the branch vessels. Small hiatal hernia. Mild distal esophageal wall thickening appears unchanged from prior studies. UPPER ABDOMEN: Limited non-contrast views of the upper abdomen abdomen. Paucity of intra-abdominal fat limits evaluation. Unchanged peripherally calcified lesion in the right hepatic dome, likely reflecting posttraumatic changes. 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 Postsurgical changes of the stomach. BONES: No acute osseous abnormality. No suspicious lytic or blastic lesions. Exaggerated thoracic kyphosis centered in the lower thoracic spine. SOFT TISSUES: Unremarkable. IMPRESSION: Unchanged appearance of 8 mm right lower lobe pulmonary nodule since CT on 09/22/2016 and slightly increased in size from 7 mm on 01/28/2014. Given relative stability, the nodule is likely benign. Mild lower lung predominant fibrotic changes. Similar appearance of partially calcified porcelain gallbladder. Small hiatal hernia with mild distal esophageal wall thickening, which may be secondary to reflux and appears similar to prior studies. If clinically indicated, endoscopy may be considered. Signed by: Dr. Winter Alonso MD on 01/03/2019 10:42 AM
== END ==
LOC: CT 09:03
PROVIDERS: ATTEND Internal Medicine Critical Care Medicine
DX: R91.1 Solitary pulmonary nodule (principal)
CPT/HCPCS: 71250

== ENCOUNTER 2019-01-30 18:38 | Emergency (ER) | payer MEDICARE ==
[~2019-01-30] VITALS: Ht 152.4 cm; Wt 56.7 kg
--- OUTSIDE RECORDS SUMMARY | 2019-01-30 18:42 | XMS REPORT | Clinical Summary ---
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 For more information, andrey granado contact: Mark Manjarrez [address] [place] [address]
[2019-01-30] MEDS ORDERED: KETOROLAC TROMETHAMINE 60 MG/2 ML VIAL IM ONE (21:30)
[2019-01-30] MEDS ORDERED: KETOROLAC TROMETHAMINE 30 MG/ML VIAL ONE (21:36)
[2019-01-30 22:09] VITALS: BP 156/70
== END 2019-01-30 22:14 | disposition home or self-care (01) ==
LOC: FSED 18:38
DX: S73.191A Other sprain of right hip, initial encounter (principal); X50.1XXA Overexertion from prolonged static or awkward postures, initial encounter; Y92.008 Other place in unspecified non-institutional (private) residence as the place of occurrence of the external cause; I10 Essential (primary) hypertension; E03.9 Hypothyroidism, unspecified
CPT/HCPCS: 99282; J1885 ×2

== ENCOUNTER 2019-03-06 14:56 | Inpatient (IN) | payer MEDICARE ==
[~2019-03-06] VITALS: Ht 149.9 cm; Wt 55.8 kg
--- OUTSIDE RECORDS SUMMARY | 2019-03-06 14:59 | XMS REPORT | Continuity of Care Document ---
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 Role Phone [employer] Information Lynk Unavailable Unavailable Problems Problem Status Onset Date Classification Date Reported Comments Source STRESS FX LEFT FOOT 4TH Active 01/03/2018 [facility] UNK Active 11/04/2014 [facility] 553.3/280.9/787.20 Active 11/04/2014 [facility] RIGHT SHOULDER Active 02/10/2014 [facility] Asthma Active Problem 01/28/2018 [facility] COPD - Chronic obstructive pulmonary disease Active Problem 01/28/2018 [facility] Hiatal hernia Active Problem 01/28/2018 [facility] Hypertension Active Problem 01/28/2018 [facility] Bladder mass Active Problem 01/31/2019 [facility] Hematuria Active Problem 01/31/2019 [facility] UTI Active Problem 01/31/2019 [facility] Medications Medication Details Route Status Patient Instructions Ordering Provider Order Date Source Famotidine (Pepcid) 20 Mg Tablet Twice A Day Active take while on meloxicam to prevent stomach upset/irritation Gil 03/22/2018 [facility] Meloxicam 7.5 Mg Tablet Daily Active Gil 03/22/2018 [facility] Famotidine (Pepcid) 20 Mg Tablet Twice A Day Active take while on meloxicam to prevent stomach upset/irritation Gil 03/22/2018 [facility] Meloxicam 7.5 Mg Tablet Daily Active Gil 03/22/2018 [facility] Calcium Carb/Vit D3/Minerals (Caltrate Plus Tablet) 1 Each Tablet, 1 Tab Oral Daily Active 02/14/2018 [facility] Pantoprazole Sodium (Protonix) 40 Mg Tablet.dr, 40 Mg Oral Daily Active 02/14/2018 [facility] Levofloxacin (Levaquin) 250 Mg Tablet, 250 Mg Oral Daily Active 09/02/2017 [facility] Sulfamethoxazole/Trimethoprim (Sulfamethoxazole-Tmp Ds Tablet) 1 Each Tablet, 1 Tab Oral Daily Active 09/02/2017 [facility] Tamsulosin Hcl (Flomax*) 0.4 Mg Cap, 0.4 Mg Oral Daily Active 09/02/2017 [facility] Levofloxacin (Levaquin) 250 Mg Tablet, 250 Mg Oral Daily Active 09/02/2017 [facility] Sulfamethoxazole/Trimethoprim (Sulfamethoxazole-Tmp Ds Tablet) 1 Each Tablet, 1 Tab Oral Daily Active 09/02/2017 [facility] Tamsulosin Hcl (Flomax*) 0.4 Mg Cap, 0.4 Mg Oral Daily Active 09/02/2017 [facility] Albuterol Sulfate 0.63 Mg/3 Ml Vial.neb, 1-2 Inh Inhalation Every Two Hours as needed for Shortness Of Breath Active [facility] 08/28/2017 [facility] Prednisone 20 Mg Tab, 40 Mg Oral Daily Active [facility] 08/28/2017 [facility] Albuterol Sulfate 0.63 Mg/3 Ml Vial.neb, 1-2 Inh Inhalation Every Two Hours as needed for Shortness Of Breath Active [facility] 08/28/2017 [facility] Prednisone 20 Mg Tab, 40 Mg Oral Daily Active [facility] 08/28/2017 [facility] Montelukast Sodium 10 Mg Tablet, 40 Mg Oral Daily Active 09/16/2016 [facility] Montelukast Sodium 10 Mg Tablet, 40 Mg Oral Daily Active 09/16/2016 [facility] Fish Oil 0 Refill(s) Active 11/11/2014 [facility] telmisartan 0 Refill(s) Active 11/11/2014 [facility] montelukast 10 mg oral tablet 10 mg=1 tab, PO, Bedtime, # 30 tab, 0 Refill(s) Active 11/11/2014 [facility] pantoprazole 40 mg oral enteric coated tablet 40 mg=1 tab, PO, Daily, # 30 tab, 0 Refill(s) Active 11/11/2014 [facility] Ventolin HFA 90 mcg/inh inhalation aerosol with adapter 2 puff, INHALATION, QID, # 34 gm, 0 Refill(s) Active 11/11/2014 [facility] Aspirin 81 Mg Tablet, 81 Mg Oral Daily Active 10/21/2014 [facility] Ca Citrate/Mgox/Vit D3/B6/Min (Citracal Plus Tablet) 1 Each Tablet, 1 Each Oral Daily Active 10/21/2014 [facility] Fish Oil , Oral Daily Active 10/21/2014 [facility] Multivitamin (Multivitamins) 1 Each Tab.chew, Oral Daily Active 10/21/2014 [facility] Rabeprazole Sodium (Aciphex) 20 Mg Tablet., Active 10/21/2014 [facility] Salmeterol Xinaf/Fluticasone (Advair 250/50) 1 Ea Disk, 1 Ea Inhalation as needed Active 10/21/2014 [facility] Telmisartan (Micardis) 80 Mg Tablet, 80 Mg Oral Daily Active 10/21/2014 [facility] Pantoprazole Sodium (Protonix) 40 Mg Tablet. Daily Active [facility] Phenazopyridine Hcl (Azo Standard) 97.5 Mg Tablet Daily Active [facility] Sulfamethoxazole/Trimethoprim (Bactrim 400-80 Mg Tablet) 1 Each Tablet Twice A Day Active [facility] Tamsulosin Hcl (Flomax*) 0.4 Mg Cap Daily Active [facility] Telmisartan/Hydrochlorothiazid (Micardis Hct 40-12.5 Mg Tablet) 1 Each Tablet Daily Active [facility] Pantoprazole Sodium (Protonix) 40 Mg Tablet. Daily Active [facility] Phenazopyridine Hcl (Azo Standard) 97.5 Mg Tablet Daily Active [facility] Sulfamethoxazole/Trimethoprim (Bactrim 400-80 Mg Tablet) 1 Each Tablet Twice A Day Active [facility] Tamsulosin Hcl (Flomax*) 0.4 Mg Cap Daily Active [facility] Telmisartan/Hydrochlorothiazid (Micardis Hct 40-12.5 Mg Tablet) 1 Each Tablet Daily Active [facility] Allergies, Adverse Reactions, Alerts Substance Category Reaction Severity Reaction type Status Date Reported Comments Source No Known Drug Allergies Mild Allergy to Substance Active 03/22/2018 [facility] Immunizations No Data Provided for This Section Results Order Name Results Value Reference Range Date Interpretation Comments Source Estimated glomerular filtration rate (GFR) determination Estimated glomerular filtration rate (GFR) determination >60 60 02/16/2018 [facility] Glucose measurement Glucose measurement 98 74 - 118 02/16/2018 [facility] Serum or plasma anion gap Serum or plasma anion gap 13.2 8 - 16 02/16/2018 [facility] Serum or plasma calcium measurement (mass/volume) Serum or plasma calcium measurement (mass/volume) 9.5 8.4 - 10.2 02/16/2018 [facility] Serum or plasma carbon dioxide, total measurement (moles/volume) Serum or plasma carbon dioxide, total measurement (moles/volume) 25 22 - 29 02/16/2018 [facility] Serum or plasma chloride measurement (moles/volume) Serum or plasma chloride measurement (moles/volume) 98 98 - 107 02/16/2018 [facility] Serum or plasma creatinine measurement (mass/volume) Serum or plasma creatinine measurement (mass/volume) 0.78 0.57 - 1.11 02/16/2018 [facility] Serum or plasma potassium measurement (moles/volume) Serum or plasma potassium measurement (moles/volume) 4.2 3.5 - 5.1 02/16/2018 [facility] Serum or plasma sodium measurement (moles/volume) Serum or plasma sodium measurement (moles/volume) 132 136 - 145 02/16/2018 [facility] Serum or plasma urea nitrogen measurement (mass/volume) Serum or plasma urea nitrogen measurement (mass/volume) 15 7 - 26 02/16/2018 [facility] Serum or plasma urea nitrogen/creatinine mass ratio Serum or plasma urea nitrogen/creatinine mass ratio 19 6 - 25 02/16/2018 [facility] Automated blood basophil count (count/volume) Automated blood basophil count (count/volume) 0.0 0.0 - 0.1 02/14/2018 [facility] Automated blood basophil count as percentage of total leukocytes Automated blood basophil count as percentage of total leukocytes 0.6 0.0 - 1.0 02/14/2018 [facility] Automated blood eosinophil count Automated blood eosinophil count 0.0 0.0 - 0.4 02/14/2018 [facility] Automated blood eosinophil count as percentage of total leukocytes Automated blood eosinophil count as percentage of total leukocytes 0.4 0.0 - 6.0 02/14/2018 [facility] Automated blood hematocrit (volume fraction) Automated blood hematocrit (volume fraction) 31.8 34.2 - 44.1 02/14/2018 [facility] Automated blood lymphocyte count as percentage ot total leukocytes Automated blood lymphocyte count as percentage ot total leukocytes 26.7 18.0 - 39.1 02/14/2018 [facility] Automated blood monocyte count as percentage of total leukocytes Automated blood monocyte count as percentage of total leukocytes 7.7 4.4 - 11.3 02/14/2018 [facility] Automated blood neutrophil count Automated blood neutrophil count 3.3 2.1 - 6.9 02/14/2018 [facility] Automated blood platelet count (count/volume) Automated blood platelet count (count/volume) 200 140 - 360 02/14/2018 [facility] Automated blood segmented neutrophil count as percentage of total leukocytes Automated blood segmented neutrophil count as percentage of total leukocytes 64.2 38.7 - 80.0 02/14/2018 [facility] Automated erythrocyte mean corpuscular hemoglobin (mass per erythrocyte) Automated erythrocyte mean corpuscular hemoglobin (mass per erythrocyte) 32.3 28 - 32 02/14/2018 [facility] Automated erythrocyte mean corpuscular hemoglobin concentration measurement (mass/volume) Automated erythrocyte mean corpuscular hemoglobin concentration measurement (mass/volume) 34.0 31 - 35 02/14/2018 [facility] Automated erythrocyte mean corpuscular volume Automated erythrocyte mean corpuscular volume 95.2 81 - 99 02/14/2018 [facility] Blood erythrocytes automated count (number/volume) Blood erythrocytes automated count (number/volume) 3.34 3.6 - 5.1 02/14/2018 [facility] Blood hemoglobin measurement (moles/volume) Blood hemoglobin measurement (moles/volume) 10.8 12.0 - 16.0 02/14/2018 [facility] Blood leukocytes automated count (number/volume) Blood leukocytes automated count (number/volume) 5.06 4.8 - 10.8 02/14/2018 [facility] Blood lymphocytes count (number/volume) Blood lymphocytes count (number/volume) 1.4 1.0 - 3.2 02/14/2018 [facility] Blood monocytes automated count (number/volume) Blood monocytes automated count (number/volume) 0.4 0.2 - 0.8 02/14/2018 [facility] Red Cell Distribution Width 11.7 11.7 - 14.4 02/14/2018 [facility] IM GRANULOCYTES % 0.4 0.0 - 1.0 02/14/2018 [facility] Absolute Immature Granulocyte (auto 0.02 0 - 0.1 02/14/2018 [facility] INR in Platelet poor plasma by Coagulation assay INR in Platelet poor plasma by Coagulation assay 0.95 08/28/2017 [facility] Plasma globulin measurement (mass/volume) Plasma globulin measurement (mass/volume) 3.2 2.3 - 3.5 08/28/2017 [facility] Prothrombin time (PT) in platelet poor plasma by coagulation assay Prothrombin time (PT) in platelet poor plasma by coagulation assay 13.1 11.9 - 14.5 08/28/2017 [facility] Serum or plasma alanine aminotransferase measurement (enzymatic activity/volume) Serum or plasma alanine aminotransferase measurement (enzymatic activity/volume) 13 0 - 55 08/28/2017 [facility] Serum or plasma albumin measurement (mass/volume) Serum or plasma albumin measurement (mass/volume) 4.2 3.5 - 5.0 08/28/2017 [facility] Serum or plasma albumin/globulin mass ratio Serum or plasma albumin/globulin mass ratio 1.3 0.8 - 2.0 08/28/2017 [facility] Serum or plasma alkaline phosphatase measurement (enzymatic activity/volume) Serum or plasma alkaline phosphatase measurement (enzymatic activity/volume) 72 40 - 150 08/28/2017 [facility] Serum or plasma creatine kinase MB measurement (mass/volume) Serum or plasma creatine kinase MB measurement (mass/volume) 1.60 0.00 - 5.00 08/28/2017 [facility] Serum or plasma creatine kinase measurement (enzymatic activity/volume) Serum or plasma creatine kinase measurement (enzymatic activity/volume) 57 29 - 168 08/28/2017 [facility] Serum or plasma lipase measurement (enzymatic activity/volume) Serum or plasma lipase measurement (enzymatic activity/volume) 38 8 - 78 08/28/2017 [facility] Serum or plasma protein measurement (mass/volume) Serum or plasma protein measurement (mass/volume) 7.4 6.5 - 8.1 08/28/2017 [facility] Serum or plasma total bilirubin measurement (mass/volume) Serum or plasma total bilirubin measurement (mass/volume) 0.3 0.2 - 1.2 08/28/2017 [facility] Troponin I measurement by highly sensitive enzyme immunoassay Troponin I measurement by highly sensitive enzyme immunoassay 0.009 0 - 0.300 08/28/2017 [facility] Aspartate Amino Transf (AST/SGOT) 15 5 - 34 08/28/2017 [facility] B-Type Natriuretic Peptide 74.5 0 - 100 08/28/2017 [facility] Pathology Reports No Data Provided for This Section Diagnostic Reports Report Value Date Source Bone scan 3 phase NM Bone scan [...] region of left fourth metatarsal bone. SL: [id number] 01/25/2018 [facility] Consultation Notes No Data Provided for This Section Discharge Summaries No Data Provided for This Section History and Physicals No Data Provided for This Section Vital Signs Vital Sign Value Date Comments Source Systolic (mm Hg) 123 11/12/2014 [facility] Diastolic (mm Hg) 64 11/12/2014 [facility] Respitory Rate 18 11/12/2014 [facility] Heart Rate 70 11/12/2014 [facility] Weight 66.591 11/11/2014 [facility] Height 149.86 cm 11/11/2014 [facility] BMI Calculated 29.65 11/11/2014 [facility] Encounters Location Location Details Encounter Type Encounter Number Reason For Visit Attending Provider ADM Date DC Date Status Source formerly [facility] OP Therapy Patients [id number] Uriel Carmella 02/10/2014 03/12/2014 [facility] Bedded Outpatient [id number] Brandin Jordi 11/12/2014 11/12/2014 [facility] [id number] SHERRELL BARROW MD 06/13/2017 [facility] Departed Emergency Room [id number] NANCY BYRNE MD 08/28/2017 08/28/2017 [facility] Departed Emergency Room [id number] HENNY TORRES MD 09/02/2017 09/02/2017 [facility] Outpatient [id number] Marvin Yuen 01/25/2018 01/26/2018 [facility] Registered Surgical Day Care [id number] ELIDA GILL MD 02/16/2018 [facility] Registered Emergency Room [id number] DEVYN GIL MD 03/22/2018 [facility] Departed Emergency Room [id number] CATARINA MARCUS MD 12/10/2018 12/10/2018 [facility] Registered [facility] [id number] SORIN SCHERER MD 01/03/2019 [facility] Departed Emergency Room [id number] JAMES ANDREWS MD 01/30/2019 01/30/2019 [facility] Procedures Procedure Code Date Perfomer Comments Source Computed tomography of chest without contrast [id number] 01/03/2019 [facility] Cystoscopy with retrograde pyelography [id number] 02/16/2018 [facility] Computed tomography of brain without radiopaque contrast [id number] 08/28/2017 [facility] Colonoscopy [id number] 06/06/2014 [facility] Esophagogastroduodenoscopy [id number] 06/06/2014 [facility] section [id number] [facility] Adri-Ezequiel operation for hiatal hernia repair with esophagogastroplasty<sup>1</sup> [id number] 2005 [facility] Assessment and Plan No Data Provided for This Section Plan of Care Plan of Care Date Source Discharge Date 01/30/19 10:14pm Disposition HOME, SELF-CARE Condition at Discharge Stable Instructions/Education Provided Strains Prescriptions See Medication Section Referrals PREM MOMIN MD Address: [address] [place] [address] [phone] Additional Instructions/Education REST; TAKE MEDICATION PRESCRIBED; FOLLOW UP WITH PCP; 01/30/2019 [facility] Discharge Date 03/22/18 9:17pm Disposition HOME, SELF-CARE Condition at Discharge Stable Instructions/Education Provided Contusion Forms Provided Work/School Excuse Prescriptions See Medication Section Referrals PREM MOMIN MD Address: [address] [place] [id number] Additional Instructions/Education Xrays did not show a fracture today. If your pain continues or worsens, be sure to follow up with your doctor or return to be re-evaluated. The medications should help with your pain and it should gradually improved over the next few days, but may take a couple weeks to completely go away. 03/22/2018 [facility] Social History Social History Date Source Social History Problem Response Recorded Date/Time Onset Date Status Hx Psychiatric Problems No 09/16/2016 2:16am Not Applicable Not Applicable Hx Eating Disorder No 09/16/2016 2:16am Not Applicable Not Applicable Hx Substance Use Disorder No 09/16/2016 2:16am Not Applicable Not Applicable Hx Depression No 09/16/2016 2:16am Not Applicable Not Applicable Hx Alcohol Use No 09/16/2016 2:16am Not Applicable Not Applicable Smoking Status Start Date Stop Date Never Smoker 01/30/2019 [facility] Social History TypeResponse Alcohol Never Smoking Status Never smoker; Type: Cigarettes; Exposure to Tobacco Smoke None; Cigarette Smoking Last 365 Days No; Reg Smoking Cessation Counseling No entered on: 11/11/14 11/11/2014 [facility] Family History No Data Provided for This Section Advance Directives Order Name Results Value Date Source Advance Directives Advance Directives Directive Response Recorded Date/Time Does the patient have an advance directive? Yes 03/24/18 1:32am If yes, is advance directive on file with [facility]? No 01/25/11 2:35am If not on file with [facility] will patient provide a copy? Yes 06/13/17 8:49am Do you have a Directive to Physician? Yes 01/30/19 9:50pm Do you have a Medical Power of Wholesale And Retail Merchant? Yes 01/30/19 9:50pm Do you have an out of hospital Do Not Resuscitate Order? No 01/30/19 9:50pm Do you have any special needs we should be aware of? Y WALKS WITH WALKER 01/30/19 9:51pm Do you have a support person here with you today? Yes 01/30/19 9:51pm Did patient receive Notice of Privacy Practices? Yes 01/30/19 9:51pm Did patient receive patient rights and responsibilities? Yes 01/30/19 9:51pm 01/30/2019 [facility] Advance Directives Advance Directives Directive Response Recorded Date/Time Does the patient have an advance directive? No 02/14/18 9:51am If yes, is advance directive on file with [facility]? No 01/25/11 2:35am If not on file with [facility] will patient provide a copy? Yes 06/13/17 8:49am 03/22/2018 [facility] Functional Status No Data Provided for This Section
--- OUTSIDE RECORDS SUMMARY | 2019-03-06 14:59 | XMS REPORT | Clinical Summary ---
Author Author [employer] [facility] [employer] Address Unknown Phone Unavailable Care Team Providers Care Manager Meeting Name Role Phone PCP Unavailable Allergies No [...] pantoprazole (PROTONIX) TAKE ONE 90 tablet 0 02/28/201 40 MG EC tablet TABLET BY 9 MOUTH EVERY DAY 03/05/2018 Discontinued pantoprazole (PROTONIX) TAKE ONE 90 tablet 0 201 40 MG EC tablet TABLET BY 8 MOUTH EVERY DAY 08/06/2018 Discontinued pantoprazole (PROTONIX) TAKE ONE 90 tablet 0 40 MG EC tablet TABLET BY 8 MOUTH EVERY DAY 11/13/2018 Discontinued pantoprazole (PROTONIX) TAKE ONE 90 tablet 0 40 MG EC tablet TABLET BY 9 MOUTH EVERY DAY 02/27/2019 Discontinued pantoprazole (PROTONIX) TAKE ONE 90 tablet 0 40 MG EC tablet TABLET BY 9 MOUTH EVERY DAY Active Problems Problem Noted Date Chronic obstructive pulmonary disease 09/27/2016 Encounters Care Team Description Date Type Specialty Isaias Silva MD 02/27/2019 Refill Gastroenterology Isaias Silva MD 11/13/2018 Refill Gastroenterology Isaias Silva MD 08/06/2018 Refill Gastroenterology after 03/05/2018 Family History Medical History Relation Name Comments [...] INFLUENZA VACCINE 03/07/2019 Results Not on fileafter 03/05/2018 Insurance Type Payer Benefit Subscriber ID Effective Phone Address Plan / Dates Group PPO HUMANA MEDICARE HUMANA xxxxxxxxx 2016-P MEDICARE resent PPO/PFFS/E [facility] ([place] [place] [address] Advance Directives Patient has advance care planning documents on file. For more information, andrey granado contact: Mark Manjarrez [address] [place] [address]
[2019-03-06 15:10] VITALS: BP 138/65
--- NOTE | 2019-03-06 15:10 | NUR ---
RECEIVED PT TO FLOOR [id number]. FAMILY IS AT BEDSIDE IT IS IN NO S.S OF DISTRESS DENIES ANY C/P OF SOB STARTED IV TO THE LEFT AC 20 WHERE BLOOD WAS DRAWN PER CHRIS ORDERS PT AWARE OF ORDERS AND PLAN OF TODAY WILL CONTINUE TO MONITOR PT CLOSELY SIDE RAILSX2, BED WHEELS LOCKED ,CALL LIGHT IS WITHIN EASY REACH INSTRUCTED TO CALL FOR ASSISTANCE IF NEEDED
--- NOTE | 2019-03-06 15:18 | NUR ---
DISCUSSED IN ROUNDS, PATIENT RECEIVING BLADDER SCAN, IF WATSON NEEDED THEN PATIENT TO DISCHARGE WITH WATSON. PATIENT TO RECEIVE EDUCATION AND TEACH BACK IF WATSON IS NEEDED.
[2019-03-06 15:34] LABS: BASOPHILS % 0.2 % (0.0-1.0); EOSINOPHILS % 0.2 % (0.0-6.0); HEMATOCRIT 33.7 % (34.2-44.1); LYMPHOCYTES # (AUTO) 0.9 (1.0-3.2); MEAN CORPUSCULAR HEMOGLOBIN 31.2 pg (28-32); MEAN CORPUSCULAR HGB CONC 35.6 g/dL (31-35); MEAN CORPUSCULAR VOLUME 87.5 fL (81-99); MONOCYTES # (AUTO) 0.4 (0.2-0.8); MONOCYTES % 6.4 % (4.4-11.3); NEUTROPHILS # (AUTO) 4.4 (2.1-6.9); NEUTROPHILS % 77.8 % (38.7-80.0); PLATELET COUNT 185 x10e3/uL (140-360); RED BLOOD COUNT 3.85 x10e6/uL (3.6-5.1); RED CELL DISTRIBUTION WIDTH 13.7 % (11.7-14.4)
[2019-03-06] MEDS ORDERED: HYDROCHLOROTHIA25 MG PO (15:47)
[2019-03-06] MEDS ORDERED: LEVOTHYROXINE50 MCG PO (15:47)
[2019-03-06] MEDS ORDERED: SYMBICORT 16010.2 GM INH (15:47)
[2019-03-06] MEDS ORDERED: COZAAR25 MG PO (15:47)
--- NOTE | 2019-03-06 15:49 | NUR ---
SPOKE TO MD REYNOLDS ABOUT NEW PT ADMISSION. NEW ORDERS RECEIVED
[2019-03-06 15:52] VITALS: BP 138/65
[2019-03-06 15:57] LABS: ALANINE AMINOTRANSFERASE 13 IU/L (0-55); ALBUMIN 3.9 g/dL (3.5-5.0); ALBUMIN/GLOBULIN RATIO 1.4 (0.8-2.0); ALKALINE PHOSPHATASE 67 IU/L (40-150); ANION GAP 14.7 mmol/L (8-16); BLOOD UREA NITROGEN 14 mg/dL (7-26); BUN/CREATININE RATIO 17 (6-25); CALCIUM 9.5 mg/dL (8.4-10.2); CARBON DIOXIDE 23 mmol/L (22-29); CHLORIDE 89 mmol/L (98-107); CREATININE, SERUM 0.81 mg/dL (0.57-1.11); EST GLOMERULAR FILTRATION RATE > 60 ML/MIN (60-); GLUCOSE 111 mg/dL (74-118); POTASSIUM 3.7 mmol/L (3.5-5.1); SODIUM 123 mmol/L (136-145)
[2019-03-06] MEDS ORDERED: HYDROCODONE/APAP 5MG-325MG TAB PO PRN (16:00)
--- NOTE | 2019-03-06 16:38 | NUR ---
pt off unit to radiology for cta at this time
--- NOTE | 2019-03-06 17:32 | Diagnostic Imaging Report ---
EXAM: CT Chest WITH contrast- Pulmonary Embolism Protocol INDICATION: Shortness of breath COMPARISON: Chest CT of 01/03/2019 TECHNIQUE: Chest was scanned utilizing a multidetector helical scanner from the lung apex through the level of the diaphragm after administration of IV contrast. Thin section reconstructions were obtained with special concentration on the pulmonary arteries. Coronal and sagittal reformations were obtained. Pulmonary embolism protocol was performed. IV CONTRAST: 100 cc of Isovue 370 RADIATION DOSE: Total DLP: 405.92 mGy*cm Dose modulation, iterative reconstruction, and/or weight based adjustment of the mA/kV was utilized to reduce the radiation dose to as low as reasonably achievable. COMPLICATIONS: None FINDINGS: LINES/ TUBES: None. PULMONARY ARTERIES: No filling defect is identified within the pulmonary arteries to the segmental level. The subsegmental pulmonary arteries are not well opacified. Main pulmonary artery measures 2.4 cm in diameter. LUNGS AND AIRWAYS: The lungs are hyperinflated. The central airways are patent. No focal consolidation. Unchanged severe right lower lobe 9 mm pulmonary nodule. There are predominantly peripheral lower lobe dependent increased reticulation with subpleural cystic changes which are not clearly honeycombing. PLEURA: No pleural effusion or pneumothorax. HEART AND MEDIASTINUM: The thyroid gland appears atrophic and heterogeneous and is partially obscured by beam hardening artifact from contrast in overlying vessel. No supraclavicular, mediastinal, hilar, subpectoral, or internal mammary lymphadenopathy. The heart is not enlarged. No evidence of right heart strain. No pericardial effusion. Atherosclerotic calcifications involve the thoracic aorta. Unchanged hiatal hernia. UPPER ABDOMEN: Limited images of the upper abdomen demonstrate unchanged focal calcifications in the liver and calcifications of the gallbladder. No abnormality in the partially visualized spleen, superior kidneys, or pancreas. Adrenal glands not well visualized. Postoperative changes of the stomach as before. BONES: No acute fracture. Unchanged diffuse osteopenia and exaggerated lower thoracic spine kyphosis. Diffuse degenerative changes of the visualized spine. SOFT TISSUES: Diffuse muscle atrophy. IMPRESSION: No pulmonary embolism. Findings consistent with chronic interstitial lung disease, likely an NSIP pattern. Unchanged appearance of 9 mm right lower lobe pulmonary nodule. Due to relative stability dating all the way back to 2016, the nodule is likely benign. Signed by: Sanam Nesbitt MD on 03/06/2019 5:27 PM
[2019-03-06] MEDS: BUDESONIDE/FORMOTEROL 160/4.5MCG INHALER INH SCH (19:00)
--- NOTE | 2019-03-06 19:12 | NUR ---
Beside report and walking rounds complete. All safety measures ensured and pt call meyers near. Pt encouraged to use call meyers for assistance.
[2019-03-06] MEDS ORDERED: SODIUM CHLORIDE 0.9% 50ML 50 ML ONE (19:17)
[2019-03-06] MEDS ORDERED: IOPAMIDOL 370 MG/ML 200 ML INFUS..BTL INJ ONE (19:17)
[2019-03-06 20:00] VITALS: BP 124/60
[2019-03-07] VITALS (9 sets, daily range): BP systolic 120–147; BP diastolic 58–80
[2019-03-07 06:15] LABS: BASOPHILS % 0.2 % (0.0-1.0); EOSINOPHILS # (AUTO) 0.1 (0.0-0.4); EOSINOPHILS % 2.2 % (0.0-6.0); HEMATOCRIT 34.3 % (34.2-44.1); HEMOGLOBIN 12.1 g/dL (12.0-16.0); LYMPHOCYTES # (AUTO) 1.3 (1.0-3.2); MEAN CORPUSCULAR HEMOGLOBIN 31.2 pg (28-32); MEAN CORPUSCULAR HGB CONC 35.3 g/dL (31-35); MEAN CORPUSCULAR VOLUME 88.4 fL (81-99); MONOCYTES # (AUTO) 0.4 (0.2-0.8); MONOCYTES % 7.1 % (4.4-11.3); NEUTROPHILS # (AUTO) 3.7 (2.1-6.9); NEUTROPHILS % 67.1 % (38.7-80.0); PLATELET COUNT 170 x10e3/uL (140-360); RED BLOOD COUNT 3.88 x10e6/uL (3.6-5.1)
[2019-03-07] MEDS: LEVOTHYROXINE SODIUM 25 MCG TABLET PO SCH (06:20)
[2019-03-07 06:55] LABS: ALANINE AMINOTRANSFERASE 12 IU/L (0-55); ALBUMIN 3.7 g/dL (3.5-5.0); ALBUMIN/GLOBULIN RATIO 1.4 (0.8-2.0); ALKALINE PHOSPHATASE 67 IU/L (40-150); ANION GAP 14.8 mmol/L (8-16); BLOOD UREA NITROGEN 16 mg/dL (7-26); BUN/CREATININE RATIO 21 (6-25); CALCIUM 9.2 mg/dL (8.4-10.2); CARBON DIOXIDE 23 mmol/L (22-29); CHLORIDE 91 mmol/L (98-107); CREATININE, SERUM 0.75 mg/dL (0.57-1.11); EST GLOMERULAR FILTRATION RATE > 60 ML/MIN (60-); GLUCOSE 115 mg/dL (74-118); MAGNESIUM 2.2 MG/DL (1.3-2.1); POTASSIUM 3.8 mmol/L (3.5-5.1); SODIUM 125 mmol/L (136-145)
[2019-03-07] MEDS: BUDESONIDE/FORMOTEROL 160/4.5MCG INHALER INH SCH (07:00)
--- NOTE | 2019-03-07 07:10 | NUR ---
RECEIVED PT TO FLOOR AA0X3. FAMILY IS AT BEDSIDE IT IS IN NO S.S OF DISTRESS DENIES ANY C/P OF SOB IV TO THE LEFT AC 20 PATENT AND DRY WILL CONTINUE TO MONITOR PT CLOSELY SIDE RAILSX2, BED WHEELS LOCKED ,CALL LIGHT IS WITHIN EASY REACH INSTRUCTED TO CALL FOR ASSISTANCE IF NEEDED
[2019-03-07 07:48] LABS: EOSINOPHILS % (MANUAL) 1 % (0-7); LYMPHOCYTES % (MANUAL) 26 % (19-48); MONOCYTES % (MANUAL) 7 % (3.4-9.0); NEUTROPHILS % (MANUAL) 66 % (40-74); PLATELET ESTIMATE ADEQUATE; PLATELET MORPHOLOGY COMMENT NORMAL
[2019-03-07 07:49] LABS: POIKILOCYTOSIS SLIGHT; RBC MORPHOLOGY COMMENT NORMAL
[2019-03-07 07:50] LABS: ANISOCYTOSIS SLIGHT
[2019-03-07] MEDS: HYDROCHLOROTHIAZIDE 25 MG TAB PO SCH (07:57)
[2019-03-07] MEDS: LOSARTAN POTASSIUM 25 MG TAB PO SCH (07:57)
[2019-03-07] MEDS: PANTOPRAZOLE SOD 40 MG TABEC PO SCH (07:57)
[2019-03-07] MEDS ORDERED: TELMISARTAN 40 MG TAB PO SCH (09:00)
[2019-03-07] MEDS ORDERED: LEVOTHYROXINE SODIUM 50 MCG TAB PO SCH (09:00)
--- NOTE | 2019-03-07 14:40 | NUR ---
PAGED MD PEREZ REGARDING PT FAMILY C/O SOB V/S WITHIN RANGE. SATURATING HOWEVER IS IN THE 94%. PLACED PT ON O2 2L FOR COMFORT AWAITING FOR CALL BACK FROM MD FOR FURTHER ORDERS
--- NOTE | 2019-03-07 15:09 | Consultation ---
DATE OF CONSULTATION: Cardiology Consultation CHIEF COMPLAINT: Shortness of breath. HISTORY OF PRESENT ILLNESS: The patient is an 83-year-old, who came to our office yesterday with extreme shortness of breath for 2 days and was subsequently admitted for further evaluation. A CT scan of the chest was done, which demonstrated no pulmonary embolism, but did demonstrate some interstitial lung disease. The patient has had no chest pain, no cough and no fevers. No sputum production. PAST MEDICAL HISTORY: Significant for: 1. Hypertension. 2. Hypothyroidism. 3. Gastroesophageal reflux. SOCIAL HISTORY: The patient does not smoke and does not drink. FAMILY HISTORY: The patient's father of cancer and the patient's mother of heart disease. PHYSICAL EXAMINATION: GENERAL: The patient is a thin female, in no obvious distress. VITAL SIGNS: Included temperature of 98.8, blood pressure of 129/60 and pulse is 60. HEAD, EARS, EYES, NOSE, and THROAT: The patient's cranium was normocephalic and atraumatic. Extraocular muscles were intact. Sclerae were anicteric. Pupils were equal, round, reactive to light. There is no pallor or cyanosis of the oral mucosa. There is no erythema or edema of the throat. NECK: Supple. No jugular venous distention. No carotid bruits. CHEST: Demonstrated rhonchi bilaterally. CARDIAC: Demonstrated normal S1 and S2 with a short 2/6 systolic murmur. ABDOMINAL: Demonstrated good bowel sounds. No tenderness and no masses. EXTREMITIES: No clubbing, no cyanosis, and no edema. NEUROLOGIC: The patient was alert and oriented x3. Cranial nerves II through XII were intact. Motor strength was +5 in all limbs. The patient's EKG demonstrated sinus bradycardia with some nonspecific ST and T-wave changes. IMPRESSION: The patient is an 83-year-old with dyspnea of unclear origin. RECOMMENDATIONS: 1. An echocardiogram with Doppler has been ordered. 2. The patient's oxygen level will need to be measured with pulse oximetry. 3. The patient will need evaluation for the chronic interstitial scarring seen on the CT scan. MD WES Osei/EMILY /[id number] cc: Checo Painting MD
--- NOTE | 2019-03-07 16:27 | NUR ---
FAMILY CALLED GARRY HILL. STATES PT IS HAVING ANOTHER EPISODE OF SOB V.S TAKEN READ 147/80 WITH HR OF 76. SAT ON 88 ON RA. ASSISTED PT TO BED AND PLACED PT ON 02 2L PT SATS RAPIDLY INCREASED TO 100% AFTER ABOUT 3 MINUTES PT STATES FEELING BETTER, FEELING IS OVER. PLACED PT ON TELEMETRY AND IS RUNNING SR. NOTIFIED MD REYNOLDS OF EPISODE X2 TODAY. OK WITH MONITOR NO FURTHER ORDERS GIVEN
[2019-03-07] MEDS ORDERED: METHYLPREDNISOLONE SOD SUCC 40 MG/ML VIAL 1ML IV STA (17:26)
[2019-03-07] MEDS ORDERED: METHYLPREDNISOLONE SOD SUCC 40 MG/ML VIAL 1ML IV ONE (17:45)
[2019-03-07] MEDS: SODIUM CHLORIDE 0.9% 1000ML 1,000 ML IV SCH (17:59)
--- NOTE | 2019-03-07 20:17 | NUR ---
Patient c/o of nausea. Spoke with Dr. Painting, received orders.
[2019-03-07] MEDS: ONDANSETRON HCL INJ 2MG/ML 2ML 2 MG/ML VIAL IV PRN ×2 (20:31→20:43)
[2019-03-07 21:08] LABS: BILIRUBIN,URINE NEGATIVE (NEGATIVE); CLARITY,URINE CLEAR (CLEAR); COLOR,URINE YELLOW (YELLOW); KETONES,URINE NEGATIVE (NEGATIVE); LEUKOCYTE ESTERASE ,URINE NEGATIVE (NEGATIVE); NITRITE,URINE NEGATIVE (NEGATIVE); PROTEIN,URINE DIPSTICK NEGATIVE (NEGATIVE); URINE UROBILINOGEN 0.2 mg/dL (0.2 - 1)
[2019-03-07 21:21] LABS: BACTERIA,URINE MODERATE /HPF; EPITHELIAL CELLS,URINE FEW /LPF; RBC,URINE 0-5 /HPF (0-5)
--- NOTE | 2019-03-07 23:57 | Consultation ---
DATE OF CONSULTATION: Pulmonary Critical Care Consultation HISTORY OF PRESENT ILLNESS: The patient is an 83-year-old woman. 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 She also has some chronic dyspnea on exertion that has been gradually getting worse over the years. She also notes gradual weight loss over the past several years. She presented to the Cardiology office with worsening dyspnea and was subsequently admitted to the hospital. She was ruled out for cardiac disease. She had a CT scan that showed no pulmonary embolism. She also had an episode of dyspnea here in the hospital while walking to the window. When she went back to bed and rested, it subsided. She is now on 2 L of oxygen. She has minimal cough. She does not note any fever or phlegm production. PAST MEDICAL HISTORY: 1. Hypertension. 2. Hypothyroidism. 3. Hiatal hernia and gastroesophageal reflux. 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 She does not smoke. She does not drink. FAMILY HISTORY: The patient's father of cancer and the mother of heart disease. ALLERGIES: THERE ARE NO KNOWN DRUG ALLERGIES. REVIEW OF SYSTEMS: The patient denies any fevers. She has minimal cough. She has no headache or neck pain. She is not complaining of any chest pain. She does have some dyspnea on exertion that is episodic. She notes some acid reflux and indigestion. She denies any leg edema. She has no focal neurological abnormalities. PHYSICAL EXAMINATION: VITAL SIGNS: The blood pressure is 147/80, saturation is 99%, the pulse is 76, and respiratory rate is 18. HEENT: Shows no facial swelling or erythema. CARDIAC: Reveals a regular rate and rhythm with normal S1 and S2. There are no murmurs or rubs heard. LUNGS: Auscultation of lungs reveals rhonchorous breath sounds bilaterally. There is no wheezing. ABDOMEN: Soft and nontender. There is no rebound or guarding. EXTREMITIES: Show no leg edema or calf tenderness. There is no cyanosis or clubbing. SKIN: Shows no rashes. NEUROLOGICAL: Shows no focal abnormalities. LABORATORY DATA: Sodium is 125, and the BUN to creatinine ratio is normal. The liver function tests are normal. The CBC is within normal limits. RADIOGRAPHIC DATA: CT scan of the chest shows some mild chronic interstitial changes in the lower lung reyes, it is slightly worse on the left than the right. She also has hiatal hernia. IMPRESSION: 1. 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 2. Hiatal hernia and gastroesophageal reflux. 3. Hypertension. 4. Hypothyroidism. 5. Hyponatremia. PLAN: 1. Continue oxygen. 2. Continue bronchodilators as needed. 3. Brief course of low-dose steroids. I would like to avoid any excessive steroid use because of her age and the risk of osteoporosis. 4. Aggressive treatment of acid reflux, which may be worsening her symptoms. 5. Await results of echocardiogram. MD BOBBY Hernandez/EMILY /[id number]
[2019-03-08] VITALS (8 sets, daily range): BP systolic 114–147; BP diastolic 54–69
[2019-03-08 05:56] LABS: HEMATOCRIT 33.4 % (34.2-44.1); HEMOGLOBIN 11.8 g/dL (12.0-16.0); LYMPHOCYTES # (AUTO) 0.6 (1.0-3.2); LYMPHOCYTES % 12.9 % (18.0-39.1); MEAN CORPUSCULAR HEMOGLOBIN 31.6 pg (28-32); MEAN CORPUSCULAR HGB CONC 35.3 g/dL (31-35); MEAN CORPUSCULAR VOLUME 89.3 fL (81-99); MONOCYTES # (AUTO) 0.3 (0.2-0.8); NEUTROPHILS # (AUTO) 3.9 (2.1-6.9); NEUTROPHILS % 80.5 % (38.7-80.0); PLATELET COUNT 169 x10e3/uL (140-360); RED BLOOD COUNT 3.74 x10e6/uL (3.6-5.1); RED CELL DISTRIBUTION WIDTH 14.1 % (11.7-14.4)
[2019-03-08] MEDS: LEVOTHYROXINE SODIUM 25 MCG TABLET PO SCH (06:05)
[2019-03-08 06:19] LABS: ALANINE AMINOTRANSFERASE 13 IU/L (0-55); ALBUMIN 3.5 g/dL (3.5-5.0); ALBUMIN/GLOBULIN RATIO 1.4 (0.8-2.0); ALKALINE PHOSPHATASE 64 IU/L (40-150); BLOOD UREA NITROGEN 15 mg/dL (7-26); BUN/CREATININE RATIO 20 (6-25); CALCIUM 9.2 mg/dL (8.4-10.2); CARBON DIOXIDE 24 mmol/L (22-29); CHLORIDE 95 mmol/L (98-107); CREATININE, SERUM 0.76 mg/dL (0.57-1.11); EST GLOMERULAR FILTRATION RATE > 60 ML/MIN (60-); GLUCOSE 112 mg/dL (74-118); SODIUM 126 mmol/L (136-145)
[2019-03-08] MEDS: BUDESONIDE/FORMOTEROL 160/4.5MCG INHALER INH SCH ×2 (07:00→19:00)
--- NOTE | 2019-03-08 07:10 | NUR ---
Received patient mid fowlers position, side rails upx2, call light within reach, daughter at bedside. AAOx3 to time, person, place. Respirations even and unlabored. Instructed to use call light for assistance. Voiced understanding.
[2019-03-08] MEDS: LOSARTAN POTASSIUM 25 MG TAB PO SCH (08:28)
[2019-03-08] MEDS: HYDROCHLOROTHIAZIDE 25 MG TAB PO SCH (08:28)
[2019-03-08] MEDS: PANTOPRAZOLE SOD 40 MG TABEC PO SCH (08:29)
[2019-03-08 10:17] LABS: ABG HCO3 18 mmol/L (23-28); ABG PCO2 33 mmHg (41-51); ABG PH 7.36 (7.31-7.41); ABG PO2 98 mmHg (80-105)
--- NOTE | 2019-03-08 10:31 | NUR ---
L aware of ABG results.
[2019-03-08] MEDS: METHYLPREDNISOLONE SOD SUCC 40 MG/ML VIAL 1ML IV SCH (10:59)
[2019-03-08] MEDS: SODIUM CHLORIDE 0.9% 1000ML 1,000 ML IV SCH (13:24)
--- NOTE | 2019-03-08 18:40 | Progress Note ---
DATE: SUBJECTIVE: The patient reports some improvement in her dyspnea with Solu-Medrol and nebulizer treatments. She is awaiting spirometry at the bedside. PHYSICAL EXAMINATION: VITAL SIGNS: The patient is afebrile. The blood pressure is 136/62 and the saturation is 98%. Pulse is not 86. HEENT: Shows no facial swelling or erythema. The nasal mucosa is normal. The oropharynx is normal. LYMPHATIC: Shows no submandibular, cervical, or supraclavicular adenopathy. CARDIAC: Reveals regular rate and rhythm with normal S1 and S2. LUNGS: Auscultation of lungs reveals a prolonged expiratory phase bilaterally. There is no audible wheezing. ABDOMEN: Soft, nontender. There is no rebound or guarding. EXTREMITIES: Shows no leg edema or calf tenderness. LABORATORY DATA: Sodium is 126 and the BUN to creatinine ratio is normal. The carbon dioxide is 24. Hemoglobin is 11.8. The platelet count is 169. Urinalysis shows urine specific gravity of 1.01. Urine osmolality is pending. IMPRESSION: 1. Nonspecific interstitial pneumonitis that was present on CT scan as far back as 2013. 2. Possible chronic obstructive pulmonary disease related to senescence. 3. Hiatal hernia and gastroesophageal reflux. 4. Hyponatremia. 5. Hypertension. PLAN: 1. Await spirometry. 2. Continue low-dose Solu-Medrol along with bronchodilators. 3. Continue aggressive treatment of acid reflux, which may be worsening her symptoms. 4. Monitor sodium and consider fluid restriction for possible syndrome of inappropriate antidiuretic hormone release. Bud Norwood MD [facility]/MODL /[id number]
--- NOTE | 2019-03-08 19:00 | NUR ---
RECEIVED PATIENT IN REPORT. PATIENT RESTING IN BED WITH FAMILY MEMBERS AT BEDSIDE. NO PAIN REPORTED. NO S&S OF DISTRESS NOTED. PATIENT STATES SHE FEELS READY TO GO HOME, EXPLAINED THAT IS THE DOCTOR'S DECISION AND HE WOULD BE HERE TO SEE HER IN THE MORNING. BED LOCKED IN LOWEST POSITION, SIDE RAILS UPX2, CALL LIGHT IN REACH.
--- NOTE | 2019-03-08 19:10 | NUR ---
Bedside report given to oncoming nurse of patient's status. No s/s of acute distress noted. Side rails upx2, call light within reach, family at bedside.
--- NOTE | 2019-03-08 22:35 | NUR ---
PATIENT REPORTS PAIN WHEN SHE GOT UP TO GO TO BATHROOM AND REQUESTED PAIN MEDICINE. WHEN THIS NURSE BROUGHT PAIN MEDICATION, PATIENT STATED THE PAIN WAS GETTING BETTER AND DECIDED TO HOLD OFF ON PAIN MEDICINE UNTIL IT GETS WORSE AGAIN. WILL CONTINUE TO MONITOR.
[2019-03-09] VITALS (8 sets, daily range): BP systolic 99–131; BP diastolic 52–72
--- NOTE | 2019-03-09 03:31 | NUR ---
PATIENT RESTING IN BED, EASILY AROUSED. NO PAIN REPORTED. NO S&S OF DISTRESS NOTED.
[2019-03-09] MEDS: LEVOTHYROXINE SODIUM 25 MCG TABLET PO SCH (06:00)
[2019-03-09] MEDS: ONDANSETRON HCL INJ 2MG/ML 2ML 2 MG/ML VIAL IV PRN (06:13)
--- NOTE | 2019-03-09 06:24 | NUR ---
PATIENT CALLED STATING SHE FELT DIZZY, SHORT OF BREATH, AND NAUSEATED. HR 60-70. O2 @ 2L ADMINISTERED, SPO2 97-98%. ZOFRAN ADMINISTERED. LUNG SOUNDS CLEAR. PATIENT RESTING IN BED. RESPIRATORY CALLED TO ADMINISTER HER INHALER, WAITING ON THEM TO COME. PATIENT STATES SHE SLEPT WELL AND TURNED ON SIDE, AND THIS CAUSED THE DIZZINESS. OFFERED WATER, BUT PATIENT STATES SHE FEELS LIKE IT WILL MAKE HER VOMIT. WILL CONTINUE TO MONITOR.
[2019-03-09] MEDS: BUDESONIDE/FORMOTEROL 160/4.5MCG INHALER INH SCH ×2 (06:34→20:01)
[2019-03-09 07:03] LABS: ALANINE AMINOTRANSFERASE 13 IU/L (0-55); ALBUMIN 3.5 g/dL (3.5-5.0); ALBUMIN/GLOBULIN RATIO 1.4 (0.8-2.0); ALKALINE PHOSPHATASE 61 IU/L (40-150); ANION GAP 14.3 mmol/L (8-16); BLOOD UREA NITROGEN 15 mg/dL (7-26); BUN/CREATININE RATIO 20 (6-25); CALCIUM 9.3 mg/dL (8.4-10.2); CARBON DIOXIDE 24 mmol/L (22-29); CHLORIDE 93 mmol/L (98-107); CREATININE, SERUM 0.75 mg/dL (0.57-1.11); EST GLOMERULAR FILTRATION RATE > 60 ML/MIN (60-); GLUCOSE 96 mg/dL (74-118); MAGNESIUM 2.4 MG/DL (1.3-2.1); POTASSIUM 4.3 mmol/L (3.5-5.1); SODIUM 127 mmol/L (136-145)
--- NOTE | 2019-03-09 07:15 | NUR ---
PATIENT STATES SHE STILL FEELS NAUSEATED AND DOES NOT WANT TO TAKE SYNTHROID. MEDICATION RETURNED TO PYXIS.
[2019-03-09] MEDS: METHYLPREDNISOLONE SOD SUCC 40 MG/ML VIAL 1ML IV SCH (09:55)
[2019-03-09] MEDS: PANTOPRAZOLE SOD 40 MG TABEC PO SCH (09:55)
[2019-03-09] MEDS: LOSARTAN POTASSIUM 25 MG TAB PO SCH (09:56)
[2019-03-09] MEDS: HYDROCHLOROTHIAZIDE 25 MG TAB PO SCH (09:57)
--- NOTE | 2019-03-09 12:26 | NUR ---
GAVE RESOURCES FOR PRIVATE PAY PROVIDERS, A SENIOR RESOURCES GUIDE AND INFORMATION TO REACH DEPARTMENT OF AGING AND DISABILITIES FOR APPLICATION OF PROVIDERS FOR HOME BOUND PTS.
--- NOTE | 2019-03-09 12:28 | Progress Note ---
DATE: Pulmonary Critical Care Progress Note SUBJECTIVE: The patient reports some improvement in her dyspnea. She still has some shortness of breath. She does not complain of cough or wheezing. PHYSICAL EXAMINATION: VITAL SIGNS: The blood pressure is 126/58 and the saturation is 98% on 2 L. She is afebrile. HEENT: Shows no facial swelling or erythema. CARDIAC: Reveals regular rate and rhythm with normal S1 and S2. LUNGS: Auscultation of lungs reveals clear breath sounds bilaterally. There is no wheezing. ABDOMEN: Soft and nontender. There is no rebound or guarding. EXTREMITIES: Show no leg edema or calf tenderness. There is no cyanosis or clubbing. SKIN: Shows no rashes. LABORATORY DATA: White blood cell count is 4.8 and the hemoglobin is 11.8. The platelet count is 169. The sodium is 127. The other electrolytes are within normal limits. IMPRESSION: 1. Chronic obstructive pulmonary disease with acute exacerbation. 2. Nonspecific interstitial pneumonitis. 3. Hiatal hernia with gastroesophageal reflux. 4. Hyponatremia. 5. Hypertension. PLAN: 1. Continue low-dose Solu-Medrol. 2. Continue bronchodilators. 3. Continue current anti-reflux regimen. 4. Monitor sodium. Bud Norwood MD [facility]/MODL /[id number]
--- NOTE | 2019-03-09 19:00 | NUR ---
RECEIVED PATIENT IN REPORT. PATIENT RESTING IN BED. FAMILY MEMBERS AT BEDSIDE. NO PAIN REPORTED AT THIS TIME, HOWEVER PATIENT STATES HAVING PAIN IN SECOND TOE ON RIGHT FOOT. NO ABNORMALITIES NOTED. SKIN REPAIR LOTION APPLIED, TOLD PATIENT TO CALL IF PAIN GETS WORSE. PATIENT USING 2L O2 AT THIS TIME, BUT NO SOB OR DYSPNEA REPORTED. BED LOCKED IN LOWEST POSITION, SIDE RAILS UPX2, CALL LIGHT IN REACH.
--- NOTE | 2019-03-09 20:45 | NUR ---
SPOKE WITH MD REYNOLDS ABOUT PATIENT'S LACK OF BM SINCE MONDAY, 03/05. STOOL SOFTENER ORDERED.
[2019-03-09] MEDS: DOCUSATE SODIUM 100 MG CAP PO SCH (21:18)
[2019-03-10] VITALS (7 sets, daily range): BP systolic 113–137; BP diastolic 55–63
--- NOTE | 2019-03-10 04:05 | NUR ---
ASSISTED PATIENT TO TOILET. PATIENT REPORTS A HEADACHE. SPOKE WITH MD REYNOLDS, NEW ORDERS RECEIVED.
[2019-03-10] MEDS: ACETAMINOPHEN 325 MG TAB PO PRN (04:10)
[2019-03-10] MEDS: LEVOTHYROXINE SODIUM 25 MCG TABLET PO SCH (06:22)
[2019-03-10] MEDS: BUDESONIDE/FORMOTEROL 160/4.5MCG INHALER INH SCH ×2 (07:00→19:32)
[2019-03-10] MEDS: DOCUSATE SODIUM 100 MG CAP PO SCH (10:12)
[2019-03-10] MEDS: METHYLPREDNISOLONE SOD SUCC 40 MG/ML VIAL 1ML IV SCH (10:12)
[2019-03-10] MEDS: LOSARTAN POTASSIUM 25 MG TAB PO SCH (10:12)
[2019-03-10] MEDS: HYDROCHLOROTHIAZIDE 25 MG TAB PO SCH (10:12)
[2019-03-10] MEDS: PANTOPRAZOLE SOD 40 MG TABEC PO SCH (10:27)
--- NOTE | 2019-03-10 13:23 | Progress Note ---
DATE: SUBJECTIVE: The patient has some improvement, but still has shortness of breath. She is not coughing. She has no chest pain. PHYSICAL EXAMINATION: VITAL SIGNS: The blood pressure is 120/58 and saturation is 98%. HEENT: Shows no facial swelling or erythema. The nasal mucosa is normal. CARDIAC: Reveals regular rate and rhythm with normal S1, S2. There are no murmurs or rubs. LUNGS: Auscultation of lungs reveals clear breath sounds bilaterally. There is no wheezing. ABDOMEN: Soft, nontender. There is no rebound or guarding. EXTREMITIES: Show no leg edema or calf tenderness. There is no cyanosis or clubbing. SKIN: Shows no rashes. IMPRESSION: 1. Chronic obstructive pulmonary disease with acute exacerbation. 2. Nonspecific interstitial pneumonitis. 3. Hiatal hernia with gastroesophageal reflux. 4. Hyponatremia. PLAN: 1. Continue low-dose Solu-Medrol. 2. Continue bronchodilators. 3. Anti-reflux medications. 4. Monitor sodium. 5. Physical therapy. Bud Norwood MD [facility]/MODL /[id number]
--- NOTE | 2019-03-10 19:04 | NUR ---
Bedside report received from RAÚL Mancini. Pt is resting comfortably in bed in no apparent distress at this time. Bed is in low locked position and call light is in reach of pt. Will continue to monitor.
--- NOTE | 2019-03-10 19:14 | NUR ---
Handoff report to oncoming nurse, made aware patient on oxygen as needed 2 liters verbalized understanding.
[2019-03-10] MEDS: ONDANSETRON HCL INJ 2MG/ML 2ML 2 MG/ML VIAL IV PRN (22:09)
--- NOTE | 2019-03-10 22:16 | NUR ---
Pt short of breath after ambulating to restroom with the use of the walker. Pt in bed at this time with c/o nausea. IV zofran given as ordered. Will continue to monitor patient. Pt daughter is at bedside.
--- NOTE | 2019-03-10 22:41 | NUR ---
Pt still c/o SOB. O2 sat is 99% on 2L NC at this time. Pt daughter at bedside requesting extension tubing for nasal cannula for when patient ambulates. Pt agrees that this might help her. Respiratory therapist called for extension tubing at this time. Will continue to monitor patient.
--- NOTE | 2019-03-10 22:46 | NUR ---
Patients daughter leaving unit at this time. Pt bed alarm is on. Pt re educated to use the call light for assistance getting up. Respiratory in room at this time setting up extension tubing. Call light is in reach of pt.
[2019-03-11] VITALS (8 sets, daily range): BP systolic 100–128; BP diastolic 51–59
[2019-03-11] MEDS: LEVOTHYROXINE SODIUM 25 MCG TABLET PO SCH (06:15)
--- NOTE | 2019-03-11 07:05 | NUR ---
BEDSIDE REPORT GIVEN TO RAÚL OLSON AT THIS TIME. PT RESTING IN BED COMFORTABLY AND IN NO APPARENT DISTRESS. CALL LIGHT IS IN REACH OF PT.
[2019-03-11] MEDS: BUDESONIDE/FORMOTEROL 160/4.5MCG INHALER INH SCH ×2 (07:30→19:00)
--- NOTE | 2019-03-11 07:34 | NUR ---
RECEIVED PATIENT RESTING IN BED NO SIGNS OF DISTRESS. BED LOW, WHEELS LOCKED, SIDE RAILS X2. CALL LIGHT IN REACH WILL CONTINUE TO MONITOR PATIENT.
[2019-03-11] MEDS: LOSARTAN POTASSIUM 25 MG TAB PO SCH (08:42)
[2019-03-11] MEDS: DOCUSATE SODIUM 100 MG CAP PO SCH (08:42)
[2019-03-11] MEDS: HYDROCHLOROTHIAZIDE 25 MG TAB PO SCH (08:42)
[2019-03-11] MEDS: PANTOPRAZOLE SOD 40 MG TABEC PO SCH (08:42)
[2019-03-11] MEDS: METHYLPREDNISOLONE SOD SUCC 40 MG/ML VIAL 1ML IV SCH (08:42)
--- NOTE | 2019-03-11 09:15 | NUR ---
PATIENT A/O X3, EVEN RESPIRATIONS ON 2LNC. BOWEL SOUNDS ACTIVE, SKIN INTACT, NON-PITTING EDEMA TO ANKLES. LEFT AC 20 GAUGE IV SL. TELEMETRY #18 SR. NO SIGNS OF DISTRESS. VITAL SIGNS STABLE. PATIENT AMBULATES WITH WALKER AND ASSISTANCE. EDUCATED PATIENT TO CALL NURSE FOR ASSISTANCE BEFORE GETTING OUT OF BED. FAMILY AT BEDSIDE. CALL LIGHT IN REACH WILL CONTINUE TO MONITOR PATIENT.
[2019-03-11] MEDS: ACETAMINOPHEN 325 MG TAB PO PRN (09:48)
--- NOTE | 2019-03-11 10:40 | NUR ---
PAGED DR. REYNOLDS REGARDING PATIENTS REQUEST FOR LIDOCAINE PATCH DUE TO RIGHT HIP PAIN. MD ORDERED LIDOCAINE PATCH, NEW ORDERS IMPLEMENTED.
[2019-03-11] MEDS ORDERED: LIDOCAINE 5% PATCH TP NR (10:45)
--- NOTE | 2019-03-11 11:36 | Progress Note ---
DATE: SUBJECTIVE: The patient still has some dyspnea with exertion. PHYSICAL EXAMINATION: VITAL SIGNS: The patient is afebrile. The saturation is 100% on 2 L. Her blood pressure is 128/58 and her pulse is 63. HEENT: Shows no facial swelling or erythema. CARDIAC: Reveals regular rate and rhythm with a normal S1 and S2. LUNGS: Auscultation of lungs reveals clear breath sounds bilaterally. There is no wheezing. ABDOMEN: Soft and nontender. There is no rebound or guarding. EXTREMITIES: Show no leg edema or calf tenderness. There is no cyanosis or clubbing. SKIN: Shows no rashes. NEUROLOGICAL: Shows no focal abnormalities. IMPRESSION: 1. Chronic obstructive pulmonary disease with acute exacerbation. 2. Nonspecific interstitial pneumonitis. 3. Hiatal hernia with gastroesophageal reflux. PLAN: 1. Physical therapy evaluation. 2. The patient will probably need more intensive rehab at SNF or LTAC. 3. Continue Solu-Medrol bronchodilators. 4. Continue anti-reflux medications. Bud Norwood MD [facility] /[id number]
--- NOTE | 2019-03-11 12:54 | NUR ---
REC'D CALL FROM DEBBIE AT [facility] WITH MOT ROOM 14A DR Victorino ZUNIGA NURSE AWARE PASSR IN PACKET
--- NOTE | 2019-03-11 13:03 | NUR ---
PLEASE DISREGARD ABOVE NOTE WRONG PT
--- NOTE | 2019-03-11 13:03 | NUR ---
CM MET WITH PT, SON AND DAUGHTER AT BEDSIDE THEY STATE DR REYNOLDS IS GOING TO ORDER A SNF EVAL ON PT ONCE P.T. EVAL IS DONE AND THEIR RECOMMENDATIONS ARE NOTED IF PT NEEDS A SNF THEY WANT [facility] [place] [facility] CHOICE LETTER ON CHART FOR [facility]
[2019-03-12] VITALS (7 sets, daily range): BP systolic 108–140; BP diastolic 55–71
[2019-03-12] MEDS: LEVOTHYROXINE SODIUM 25 MCG TABLET PO SCH (06:07)
[2019-03-12 06:11] LABS: BASOPHILS % 0.2 % (0.0-1.0); EOSINOPHILS % 0.9 % (0.0-6.0); HEMATOCRIT 33.1 % (34.2-44.1); HEMOGLOBIN 11.3 g/dL (12.0-16.0); LYMPHOCYTES # (AUTO) 1.7 (1.0-3.2); LYMPHOCYTES % 37.3 % (18.0-39.1); MEAN CORPUSCULAR HEMOGLOBIN 30.8 pg (28-32); MEAN CORPUSCULAR HGB CONC 34.1 g/dL (31-35); MEAN CORPUSCULAR VOLUME 90.2 fL (81-99); MONOCYTES # (AUTO) 0.3 (0.2-0.8); MONOCYTES % 6.4 % (4.4-11.3); NEUTROPHILS # (AUTO) 2.5 (2.1-6.9); NEUTROPHILS % 54.8 % (38.7-80.0); PLATELET COUNT 158 x10e3/uL (140-360); RED BLOOD COUNT 3.67 x10e6/uL (3.6-5.1); RED CELL DISTRIBUTION WIDTH 14.2 % (11.7-14.4)
[2019-03-12 06:50] LABS: ALANINE AMINOTRANSFERASE 10 IU/L (0-55); ALBUMIN 3.4 g/dL (3.5-5.0); ALBUMIN/GLOBULIN RATIO 1.5 (0.8-2.0); ALKALINE PHOSPHATASE 57 IU/L (40-150); ANION GAP 12.6 mmol/L (8-16); BLOOD UREA NITROGEN 16 mg/dL (7-26); BUN/CREATININE RATIO 21 (6-25); CALCIUM 9.2 mg/dL (8.4-10.2); CARBON DIOXIDE 27 mmol/L (22-29); CHLORIDE 93 mmol/L (98-107); CREATININE, SERUM 0.76 mg/dL (0.57-1.11); EST GLOMERULAR FILTRATION RATE > 60 ML/MIN (60-); GLUCOSE 89 mg/dL (74-118); MAGNESIUM 2.3 MG/DL (1.3-2.1); POTASSIUM 4.6 mmol/L (3.5-5.1); SODIUM 128 mmol/L (136-145)
[2019-03-12] MEDS: BUDESONIDE/FORMOTEROL 160/4.5MCG INHALER INH SCH ×2 (06:55→21:00)
--- NOTE | 2019-03-12 06:58 | NUR ---
walking rounds done and report received. POC discussed. Tele #[id number], SR@[phone]. Patient is awake and alert x3 and able to make needs known. She was instructed to call for assistance as needed and verbalized understanding. call meyers within reach.
--- NOTE | 2019-03-12 08:33 | NUR ---
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
[2019-03-12] MEDS: DOCUSATE SODIUM 100 MG CAP PO SCH (08:51)
[2019-03-12] MEDS: LOSARTAN POTASSIUM 25 MG TAB PO SCH (08:51)
[2019-03-12] MEDS: METHYLPREDNISOLONE SOD SUCC 40 MG/ML VIAL 1ML IV SCH (08:51)
[2019-03-12] MEDS: HYDROCHLOROTHIAZIDE 25 MG TAB PO SCH (08:51)
[2019-03-12] MEDS: PANTOPRAZOLE SOD 40 MG TABEC PO SCH (08:51)
--- NOTE | 2019-03-12 14:44 | Progress Note ---
DATE: SUBJECTIVE: The patient still has some dyspnea with exertion. She is awaiting possible transfer to SNF. PHYSICAL EXAMINATION: VITAL SIGNS: The patient is afebrile. The blood pressure is 108/56, saturation is 98% on 2 L. HEENT: Shows no facial swelling or erythema. The oropharynx is normal. LYMPHATIC: Shows no submandibular, cervical or supraclavicular adenopathy. CARDIAC: Reveals regular rate and rhythm with normal S1, S2. There are no murmurs or rubs heard. LUNGS: Auscultation of lungs reveals prolonged expiratory phase bilaterally. There is no wheezing. ABDOMEN: Soft, nontender. There is no rebound or guarding. IMPRESSION: 1. Chronic obstructive pulmonary disease with acute exacerbation. 2. Nonspecific interstitial pneumonitis. 3. Hiatal hernia with gastroesophageal reflux. PLAN: 1. Continue Solu-Medrol and bronchodilators. 2. Continue anti-reflux medications. 3. Physical therapy for possible transfer to a senior care facility. Bud Norwood MD [facility]/EMILY /[id number]
--- NOTE | 2019-03-12 17:27 | NUR ---
Nutrition LOS Note RD Recommendation for Physician: -Continue diet as ordered Plan of Care: RD following, monitoring for tolerance and adequacy Nutrition reason for involvement: LOS Primary Diagnose(s): 1. Chronic obstructive pulmonary disease with acute exacerbation. 2. Nonspecific interstitial pneumonitis. 3. Hiatal hernia with gastroesophageal reflux. PMH: 1. Hypertension. 2. Hypothyroidism. 3. Gastroesophageal reflux. Ht: 59in Wt: 123lb BMI: 24.8kg/m2 IBW: 98lb +/- 10% RD Assessment: (03/12) Chart reviewed. Labs and meds reviewed. 83yo F, who was admitted for dyspnea. Visited pt in the room. Pt reported good appetite. No GI complains noted. LBM 03/12. Pt denied any chewing or swallowing difficulty. Weight has been stable. Current diet is appropriate and adequate. Pending placement. Current Diet: cardiac diet Malnutrition Evaluation (03/12/2019) The patient does not meet criteria for a specified degree of malnutrition at this time. Will re-evaluate at follow-up as appropriate. Diet Education Needs Assessment: Diet education not indicated. Nutrition Care Level: low Signed: Kayla Anderson, MS, RD, LD
[2019-03-13 00:25] VITALS: BP 129/59
[2019-03-13 04:54] VITALS: BP 111/56
[2019-03-13] MEDS: LEVOTHYROXINE SODIUM 25 MCG TABLET PO SCH (06:15)
--- NOTE | 2019-03-13 06:55 | NUR ---
Walking rounds done and report received. Patient is awake, alert and without any complaints voiced. POC discussed. Daughter at the bedside. She was instructed to call for assistance ad verbalized understanding. Call meyers within reach.
[2019-03-13] MEDS: BUDESONIDE/FORMOTEROL 160/4.5MCG INHALER INH SCH (07:00)
[2019-03-13 08:00] VITALS: BP 119/56
[2019-03-13] MEDS: METHYLPREDNISOLONE SOD SUCC 40 MG/ML VIAL 1ML IV SCH (08:22)
[2019-03-13] MEDS: PANTOPRAZOLE SOD 40 MG TABEC PO SCH (08:22)
[2019-03-13] MEDS: DOCUSATE SODIUM 100 MG CAP PO SCH (08:22)
[2019-03-13] MEDS: LOSARTAN POTASSIUM 25 MG TAB PO SCH (08:22)
[2019-03-13] MEDS: HYDROCHLOROTHIAZIDE 25 MG TAB PO SCH (08:22)
[2019-03-13] MEDS ORDERED: PREDNISONE 10 MG TAB PO SCH (09:00)
[2019-03-13 09:03] VITALS: BP 119/56
[2019-03-13] MEDS: ACETAMINOPHEN 325 MG TAB PO PRN (10:17)
--- NOTE | 2019-03-13 10:59 | Progress Note ---
DATE: SUBJECTIVE: The patient still has some dyspnea on exertion. She is awaiting possible transfer to SNF. PHYSICAL EXAMINATION: VITAL SIGNS: Stable. HEENT: Shows no facial swelling or erythema. CARDIAC: Reveals regular rate and rhythm with normal S1, S2. LUNGS: Auscultation of lungs reveals clear breath sounds bilaterally. There is a prolonged expiratory phase. ABDOMEN: Soft, nontender. There is no rebound or guarding. There is no leg edema. IMPRESSION: 1. Chronic obstructive pulmonary disease with acute exacerbation. 2. Nonspecific interstitial pneumonitis. 3. Hiatal hernia with gastroesophageal reflux. PLAN: 1. Continue anti-reflux medications. 2. Taper steroids. 3. Continue bronchodilators. 4. Awaiting possible transfer to SNF. Bud Norwood MD [facility]/MODL /[id number]
--- NOTE | 2019-03-13 11:10 | NUR ---
PT ACCEPTED AT [facility], RTF AND PASRR COMPLETED AND FILED IN CHART AND PACKET TO GO WITH PATIENT EDUCATED ABOUT IMM AND LEFT COPY IN ROOM. PT GOING TO ROOM [address] KARTHIK STORY, CALL REPORT TO [phone]
--- NOTE | 2019-03-13 12:00 | NUR ---
PATIENT HAS BEEN ACCEPTED TO [facility]. IV DC'D ORDERED WITH CATH TIP INTACT. PATIENT REQUESTED TO EAT LUNCH PRIOR TO LEAVING TO [facility].
--- NOTE | 2019-03-13 12:30 | NUR ---
REPORT GIVEN TO RAÚL PASTOR. ALL QUESTIONS ANSWERED AT THIS TIME.
--- NOTE | 2019-03-13 13:58 | NUR ---
PATIENT DISCHARGED TO [facility] VIA AMBULANCE IN STABLE CONDITION WITH ALL BELONGINGS. DAUGHTER AT SIDE.
--- NOTE | 2019-03-14 22:12 | Progress Note ---
DATE: SUBJECTIVE: The patient did well overnight. No other complaints. OBJECTIVE: VITAL SIGNS: Stable, afebrile. GENERAL: No apparent distress. CARDIOVASCULAR: Regular rate and rhythm. LUNGS: Clear to auscultation bilaterally. ABDOMEN: Good bowel sounds. Soft and nontender. EXTREMITIES: No clubbing or cyanosis. NEUROLOGIC: Nonfocal. ASSESSMENT AND PLAN: 1. Pulmonary fibrosis. Continue with current care per Pulmonary. 2. Weakness. Continue with physical therapy. Awaiting for [facility] facility. 3. Hypothyroidism. Continue with her medications. 4. Hypertension. Continue with her medication. 5. Anemia. Continue to monitor p.r.n. Please see hospital chart for full details. MD BRANT Henry/EMILY /[id number]
--- NOTE | 2019-03-23 05:57 | Discharge Summary ---
DISCHARGE DIAGNOSIS: Pulmonary fibrosis exacerbation. HISTORY OF PRESENT ILLNESS AND HOSPITAL COURSE: See hospital chart for full details. The patient is a lady, who has a history of pulmonary fibrosis, admitted with acute exacerbation of her shortness of breath and dyspnea on exertion, was brought in, seen by both Cardiology with Dr. Tahir Norwood and Pulmonary with Dr. Dr. Bud Norwood. Cardiac-morin, her workup was unremarkable. Pulmonary morin showed evidence of fibrosis. With her medical treatment of steroids, O2, nebulizer treatments, she did feel better and at the time of discharge due to her weakness and slow improvement due to this poor condition. She was then transferred to a [facility] facility for further rehabilitative care as well as continued care of her fibrosis and she is to follow up with Dr. Bud Norwood as an outpatient and she is discharged. Please see hospital chart for full details. MD BRANT Henry/EMILY /[id number]
== END 2019-03-13 13:58 | DRG 197 ==
LOC: MED/SURG 14:56
PROVIDERS: ADMIT Internal Medicine; ATTEND Internal Medicine
DX: J84.89 Other specified interstitial pulmonary diseases (principal); J44.1 Chronic obstructive pulmonary disease with (acute) exacerbation; E87.1 Hypo-osmolality and hyponatremia; J84.10 Pulmonary fibrosis, unspecified; K21.9 Gastro-esophageal reflux disease without esophagitis; E03.9 Hypothyroidism, unspecified; I10 Essential (primary) hypertension; D64.9 Anemia, unspecified; K44.9 Diaphragmatic hernia without obstruction or gangrene; J44.9 Chronic obstructive pulmonary disease, unspecified
CPT/HCPCS: 36415; 36600; 71260; 80053; 81001; 82805; 83735; 83930; 83935; 85025; 93005; 93306; 94664; 97139; J2405; J2920; J7030; J7512; Q9967

== ENCOUNTER → 2019-05-20 | Outpatient (CLI) | payer MEDICARE ==
[~2019-05-20] MED LIST changes: +BUPRENORPHINE1 EAC1 TD; +COZAAR25 MG PO; +DICLOFENAC EPO1 EACH TD; +HYDROCHLOROTH12.5 MG PO; +HYDROCHLOROTHIA25 MG PO; +HYDROCODON-ACE1 EA11 PO; +LEVOTHYROXINE25 MCG PO; +LEVOTHYROXINE50 MCG PO; +LOSARTAN POTASS50 MG PO; +SYMBICORT 16010.2 GM INH
--- NOTE | 2019-05-20 16:14 | Diagnostic Imaging Report ---
TECHNIQUE: Computed tomography imaging of the RIGHT SHOULDER was performed WITHOUT injected contrast. Dose modulation, iterative reconstruction, and/or weight based adjustment of the mA/kV was utilized to reduce the radiation dose to as low as reasonably achievable. COMPARISON: None available. HISTORY: Right shoulder pain, trauma FINDINGS: Comminuted fracture of the greater tuberosity with mild displacement measuring less than 1 cm. No significant angulation. No fracture involving the lesser tuberosity or humeral neck. High-grade rotator cuff tear involving the supraspinatus and infraspinatus tendon with atrophy of the musculature. Subacromial spurring. Mild glenohumeral and acromioclavicular arthrosis. IMPRESSION: Comminuted fracture of the greater tuberosity with mild displacement Signed by: Dr. Francisco Wagonre M.D. on 05/20/2019 4:11 PM
--- NOTE | 2019-05-20 16:19 | Diagnostic Imaging Report ---
TECHNIQUE: Magnetic resonance imaging of the RIGHT SHOULDER was performed WITHOUT injected contrast. COMPARISON: None available. HISTORY: Pain FINDINGS: MUSCLES AND TENDONS: Rotator Cuff: Tendons: Full thickness tear of the supraspinatus tendon with retraction approximately 3 cm with posterior propagation into the infraspinatus tendon as a partial-thickness articular sided tear. Muscles: Mild atrophy of the supraspinatus and infraspinatus. Biceps Tendon: The long head of the biceps tendon is poorly visualized. GLENOHUMERAL JOINT: Glenoid Labrum: Diffuse labral tearing. Articular Cartilage: Diffuse high-grade cartilage loss. AC JOINT AND ACROMION: Mild hypertrophic degenerative changes of the acromioclavicular joint. Subacromial spurring with remodeling. BONE: Mildly displaced fracture of the greater tuberosity. SOFT TISSUES: Otherwise, the soft tissues appear unremarkable. IMPRESSION: Supraspinatus full-thickness tear with posterior propagation as a partial-thickness articular sided tear into the infraspinatus with retraction and atrophy as above. Subacromial spurring. Comminuted fracture of the greater tuberosity. Moderate glenohumeral degenerative arthrosis. Signed by: Dr. Francisco Wagoner M.D. on 05/20/2019 4:16 PM
== END ==
LOC: MRI 13:09
PROVIDERS: ATTEND Orthopaedic Surgery
DX: S42.251A Displaced fracture of greater tuberosity of right humerus, initial encounter for closed fracture (principal); M75.121 Complete rotator cuff tear or rupture of right shoulder, not specified as traumatic; S43.014A Anterior dislocation of right humerus, initial encounter

== ENCOUNTER 2019-09-09 16:56 | Inpatient (IN) | payer MEDICARE ==
[~2019-09-09] VITALS: Ht 149.9 cm; Wt 53.6 kg
[2019-09-09] MEDS ORDERED: METOPROLOL TARTRATE 25 MG TAB PO STA (17:58)
[2019-09-09] MEDS ORDERED: SODIUM CHLORIDE 0.9% 500ML 500 ML IV ONE (18:00)
--- NOTE | 2019-09-09 18:00 | Diagnostic Imaging Report ---
EXAMINATION: CHEST SINGLE (PORTABLE) INDICATION: Shortness of breath COMPARISON: Chest CT 03/06/2019 FINDINGS: LINES/TUBES:None LUNGS:The lungs are hyperinflated. No focal consolidation or pulmonary edema. Patchy opacity at the left lung base, compatible with previously seen mild fibrosis on CT. PLEURA:No pleural effusion or pneumothorax. MEDIASTINUM:The cardiomediastinal silhouette appears normal in size and shape. Atherosclerotic calcifications of the thoracic aorta. BONES/SOFT TISSUES:No acute osseous injury. ABDOMEN:No free air under the diaphragm. IMPRESSION: Hyperinflated lungs. No focal pneumonia or pulmonary edema. Left basilar opacity correlates with previously seen mild pulmonary fibrosis on CT. Signed by: Sanam Nesbitt MD on 09/09/2019 5:58 PM
[2019-09-09] MEDS ORDERED: ONDANSETRON HCL INJ 2MG/ML 2ML 2 MG/ML VIAL IV STA (18:07)
[2019-09-09 18:09] LABS: BASOPHILS % 0.5 % (0.0-1.0); EOSINOPHILS % 0.3 % (0.0-6.0); HEMATOCRIT 34.5 % (34.2-44.1); HEMOGLOBIN 10.9 g/dL (12.0-16.0); LYMPHOCYTES # (AUTO) 0.7 (1.0-3.2); LYMPHOCYTES % 11.3 % (18.0-39.1); MEAN CORPUSCULAR HEMOGLOBIN 27.4 pg (28-32); MEAN CORPUSCULAR HGB CONC 31.6 g/dL (31-35); MEAN CORPUSCULAR VOLUME 86.7 fL (81-99); MONOCYTES # (AUTO) 0.1 (0.2-0.8); MONOCYTES % 2.2 % (4.4-11.3); NEUTROPHILS # (AUTO) 5.4 (2.1-6.9); NEUTROPHILS % 84.9 % (38.7-80.0); PLATELET COUNT 193 x10e3/uL (140-360); RED BLOOD COUNT 3.98 x10e6/uL (3.6-5.1); RED CELL DISTRIBUTION WIDTH 14.2 % (11.7-14.4)
[2019-09-09 18:23] LABS: MAGNESIUM 1.9 MG/DL (1.3-2.1)
[2019-09-09 18:25] LABS: ALANINE AMINOTRANSFERASE 13 IU/L (0-55); ALBUMIN 3.8 g/dL (3.5-5.0); ALBUMIN/GLOBULIN RATIO 1.4 (0.8-2.0); ALKALINE PHOSPHATASE 86 IU/L (40-150); ANION GAP 17.1 mmol/L (8-16); BLOOD UREA NITROGEN 15 mg/dL (7-26); BUN/CREATININE RATIO 22 (6-25); CALCIUM 9.1 mg/dL (8.4-10.2); CARBON DIOXIDE 21 mmol/L (22-29); CHLORIDE 101 mmol/L (98-107); CREATINE KINASE 51 IU/L (29-168); CREATININE, SERUM 0.67 mg/dL (0.57-1.11); EST GLOMERULAR FILTRATION RATE > 60 ML/MIN (60-); GLUCOSE 149 mg/dL (74-118); POTASSIUM 4.1 mmol/L (3.5-5.1); SODIUM 135 mmol/L (136-145)
[2019-09-09 18:29] LABS: INR 1.05; PROTHROMBIN TIME 13.9 seconds (11.9-14.5)
[2019-09-09] MEDS ORDERED: ENOXAPARIN SODIUM INJ 100 MG/ML SYR SC SCH (19:00)
[2019-09-09] MEDS ORDERED: ONDANSETRON HCL INJ 2MG/ML 2ML 2 MG/ML VIAL IV PRN (19:00)
[2019-09-09 19:55] LABS: THYROID STIMULATING HORMONE 5.237 uIU/mL (0.350-4.940)
[2019-09-09] MEDS: ENOXAPARIN SOD INJ 60 MG/0.6 ML SYR SC SCH (20:25)
[2019-09-09] MEDS: FAMOTIDINE 20 MG/2 ML VIAL IV SCH (23:46)
[2019-09-10 00:43] LABS: CREATINE KINASE MB 1.3 ng/mL (0-5.0)
[2019-09-10 06:40] LABS: CLARITY,URINE CLOUDY (CLEAR); COLOR,URINE YELLOW (YELLOW); NITRITE,URINE NEGATIVE (NEGATIVE); PROTEIN,URINE DIPSTICK 2+ (NEGATIVE)
[2019-09-10 06:41] LABS: BILIRUBIN,URINE NEGATIVE (NEGATIVE); KETONES,URINE NEGATIVE (NEGATIVE); LEUKOCYTE ESTERASE ,URINE MODERATE (NEGATIVE); URINE UROBILINOGEN 0.2 mg/dL (0.2 - 1)
[2019-09-10 06:42] LABS: ALANINE AMINOTRANSFERASE 9 IU/L (0-55); ALBUMIN 3.1 g/dL (3.5-5.0); ALBUMIN/GLOBULIN RATIO 1.6 (0.8-2.0); BLOOD UREA NITROGEN 14 mg/dL (7-26); BUN/CREATININE RATIO 20 (6-25); CALCIUM 8.4 mg/dL (8.4-10.2); CARBON DIOXIDE 23 mmol/L (22-29); CHLORIDE 105 mmol/L (98-107); CREATININE, SERUM 0.69 mg/dL (0.57-1.11); EST GLOMERULAR FILTRATION RATE > 60 ML/MIN (60-); GLUCOSE 95 mg/dL (74-118); SODIUM 136 mmol/L (136-145)
[2019-09-10 06:43] LABS: ALKALINE PHOSPHATASE 67 IU/L (40-150); CHOL/HDL RATIO 2.7 (3.0-3.6); CHOLESTEROL 145 MD/DL (0-199); CREATINE KINASE MB 1.3 ng/mL (0-5.0); HDL CHOLESTEROL 54 MG/DL (40-60); LDL CHOLESTEROL 79 MG/DL (60-130); TRIGLYCERIDES 58 MG/DL (0-149)
[2019-09-10 06:52] LABS: BACTERIA,URINE FEW /HPF; EPITHELIAL CELLS,URINE FEW /LPF; RBC,URINE 21-50 /HPF (0-5); WBC,URINE (MAN) >50 /HPF (0-5)
[2019-09-10] MEDS: FAMOTIDINE 20 MG/2 ML VIAL IV SCH ×2 (07:55→21:00)
[2019-09-10] MEDS: METOPROLOL TARTRATE 25 MG TAB PO SCH ×2 (07:55→17:34)
[2019-09-10] MEDS: ENOXAPARIN SOD INJ 60 MG/0.6 ML SYR SC SCH ×2 (07:55→20:00)
[2019-09-10] MEDS: ASPIRIN 81 MG ENTERIC COATED PO SCH (07:55)
[2019-09-10 08:49] LABS: BASOPHILS % 0.5 % (0.0-1.0); EOSINOPHILS % 0.5 % (0.0-6.0); HEMATOCRIT 31.5 % (34.2-44.1); HEMOGLOBIN 10.2 g/dL (12.0-16.0); LYMPHOCYTES % 30.4 % (18.0-39.1); MEAN CORPUSCULAR HEMOGLOBIN 27.3 pg (28-32); MEAN CORPUSCULAR HGB CONC 32.4 g/dL (31-35); MEAN CORPUSCULAR VOLUME 84.5 fL (81-99); MONOCYTES % 8.7 % (4.4-11.3); NEUTROPHILS % 59.7 % (38.7-80.0); PLATELET COUNT 182 x10e3/uL (140-360); RED BLOOD COUNT 3.73 x10e6/uL (3.6-5.1); RED CELL DISTRIBUTION WIDTH 14.2 % (11.7-14.4)
[2019-09-10 08:50] LABS: LYMPHOCYTES # (AUTO) 1.3 (1.0-3.2); MONOCYTES # (AUTO) 0.4 (0.2-0.8); NEUTROPHILS # (AUTO) 2.5 (2.1-6.9)
[2019-09-10] MEDS: CEFTRIAXONE SOD 1 GM/NS 50 ML 50 ML IV SCH ×2 (11:38→21:00)
[2019-09-10 14:17] LABS: CREATINE KINASE MB 1.4 ng/mL (0-5.0)
[2019-09-10 17:45] VITALS: BP 120/58
[2019-09-10 17:46] VITALS: BP 120/58
[2019-09-10] MEDS ORDERED: MIRTAZAPINE15 MG PO (19:11)
--- OUTSIDE RECORDS SUMMARY | 2019-09-10 19:27 | XMS REPORT | Summary of Care ---
Author Author LASHA BRANHAM M.D. Unknown Address [facility] Phone Unavailable Care Team Providers Care Inner Tube Inserter Name Role Phone PABLO Ayala, TAY Unavailable Unavailable ALLYSSA STARK, TE Sullivan Unavailable Unavailable MARGARITA LOVE [place], ESTHER Unavailable Unavailable PABLO STARK [place], TAY Malloy Unavailable Unavailable LASHA BRANHAM MD Unavailable Unavailable Unavailable Unavailable Functional Status Name Dates Details Functional status health issues are not documented Status: Name Dates Details Cognitive status health issues are not documented Status: Problems Name Dates Details Bilateral hearing loss (389.9, H91.93) Status: Active Shoulder pain, right (719.41, M25.511) Status: Active Hypothyroidism (244.9, E03.9) Status: Active Acquired leg deformity (736.89, M21.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 Active Tamsulosin HCl CAPS * Refills: 0 M.A. Active Levothyroxine Sodium TABS * Refills: 0 M.A. Active hydroCHLOROthiazide 12.5 MG Oral Tablet TAKE 1 TABLET BY MOUTH EVERY DAY * Quantity: 90 Refills: 2 TAY SHAH M.D. * Start : 03-Jul-2019 Active Losartan Potassium 100 MG Oral Tablet TAKE 1 TABLET DAILY * Quantity: 90 Refills: 2 PABLO Dumas.Dottie, TAY * Start : 03-Jul-2019 Active Symbicort 160-4.5 MCG/ACT Inhalation Aerosol * Refills: 0 M.A. * Start : 06-Aug-2019 Active 6 GM Inhaler Mirtazapine 7.5 MG Oral Tablet qd * Quantity: 90 Refills: 1 PABLO M.D., TAY * Start : 06-Aug-2019 Active Allergies and Adverse Reactions Name Dates Details No Known Drug Allergies (Allergy) Status: Active Past Medical History Name Dates Details History of arthritis (V13.4, Z87.39) Status: Resolved History of hypertension (V12.59, Z86.79) Status: Resolved Procedures Procedure Dates Details EEG Date: 08-Aug-2019 [QH] LIPID PANEL WITH REFLEX TO DIRECT LDL Date: 03-Jul-2019 [QLH] CMP W/EGFR Date: 03-Jul-2019 [QLH] CBC (INCLUDES DIFF/PLT) Date: 03-Jul-2019 [QLH] URINALYSIS, COMPLETE Date: 03-Jul-2019 [QLH] TSH, 3RD GENERATION Date: 03-Jul-2019 [QLH] T4, FREE Date: 03-Jul-2019 [QLH] CBC (INCLUDES DIFF/PLT) Date: 06-Aug-2019 [L] CMP14 Date: 06-Aug-2019 [QLH] TSH, 3RD GENERATION Date: 06-Aug-2019 [QLH] RPR Date: 06-Aug-2019 [QLH] SED RATE BY MODIFIED WESTERGREN Date: 06-Aug-2019 [L] Folate, RBC and Serum Date: 06-Aug-2019 [QLH] VITAMIN B12 Date: 06-Aug-2019 [QLH] T4, TOTAL (THYROXINE) Date: 06-Aug-2019 PET Dementia 02526 Date: 08-Aug-2019 History of Hernia Repair Completed History of Silver bunionectomy Completed Immunization Name Dates Details Pneumovax 23 25 MCG/0.5ML Injection Injectable on: 08-May-2014 Prevnar 13 Intramuscular Suspension on: 14-May-2018 Fluzone INJ on: 15-May-2018 Family History Name Dates Details No significant family history (V49.89, Z78.9) Comments: Family History Status: Active Name Dates Details Family history of dementia (V17.2, Z81.8) Status: Active Social History Name Dates Details - Status: Name Dates Details Never smoker Vital Signs Date Test Result Details 66-[id number]:21 BP Systolic 138 mm[Hg] Status: Comments: Location: LUE; Position: Sitting BP Diastolic 65 mm[Hg] Status: Comments: Location: LUE; Position: Sitting Height 57 in Status: Weight 108 lb Status: Body Mass Index Calculated 23.37 kg/m2 Status: Body Surface Area Calculated 1.38 m2 Status: Temperature 97 f Status: Comments: Method: Temporal Heart Rate 76 /min Status: Respiration Rate 16 /min Status: 39-Vkr-096151:41 BP Systolic 148 mm[Hg] Status: Comments: Location: LUE; Position: Sitting BP Diastolic 74 mm[Hg] Status: Comments: Location: LUE; Position: Sitting Height 57 in Status: Weight 111 lb Status: Body Mass Index Calculated 24.02 kg/m2 Status: Body Surface Area Calculated 1.4 m2 Status: Heart Rate 89 /min Status: Results Date Description Value Details 78-Kqc-[id number]:[address] Dementia [address] Dementia SEE NOTES Comments: EXAM: Brain FDG PET/CTDATE: 08/29/2019 8:04 CSTINDICATION: F03.90-DementiaCOMPARISON: NoneTECHNIQUE: Approximately 30 minutes after IV injection of 10.78 mCi FDG, brainPET/CT imaging was obtained. The PET images were compared to the normal braindatabase from the [employer].FINDINGS:There is decreased metabolism in the right parietal lobe corresponding to theatrophic changes seen on the CT. Mild decreased metabolism is also seen in thefrontal lobes also corresponding to the atrophic changes.Mild atrophic changes are also seen in the temporal lobes bilaterally.Compared to normal brain database, decreased areas shown on the mapping aresecondary to cortical atrophy.There is mild cerebral atrophy on CT images.IMPRESSION:No definite pattern of metabolism seen to suggest neurodegenerative demen tia.Atrophic changes with corresponding decreased metabolism seen in the rightparietal, frontal and temporal lobes.--This report was dictated by a Rn Cardiology/Fellow/Physician Tech Ed Teacher. Ihave personallyreviewed the images as well as the interpretation and agree with the findings.Read by: Елена Gibbs MD Resident/Fellow/PhysicianAssistant: Елена Gibbs MDDictated Date/time: 08/29/19 10:25Electronically Signed by: Shanti Dietrich MD 08/29/2012:02FINAL REPORT [id number] MRI Brain wo contrast 27741 Brain wo contrast MRI SEE NOTES Comments: EXAM: MRI BRAIN WITHOUT CONTRASTDATE: 08/29/2019 8:44 CSTINDICATION: 83-year-old female with dementia.COMPARISON: 08/29/2019 PET/CTTECHNIQUE: Multiplanar, multisequence MRI of the brain without contrast.FINDINGS:Motion artifact is present.There is mild diffuse cortical volume loss generalized volume loss withoutpredominance. These changes appear to be unremarkable for the patient's statedage. There is no diffusion restriction, to suggest recent ischemia. No acuteintracranial hemorrhage, midline shift or hydrocephalus is present. The basalcisterns and sulci are preserved.There are scattered areas of T2/FLAIR hyperintensities within the subcorticaland periventricular white matter. No pathologic extra-axial fluid collection.The major intracranial flow voids are maintained.Bilateral lens replacements are present. The paranasal sinuses and mastoid aircells are predominantly clear. No focal marrow abnormality is present.IMPRESSION:1. No acute intracranial abnormality2. Mild diffuse cortical volume loss without lobar predominance. These changesappear to be unremarkable for the patient's stated age.3. Mild chronic periventricular microvascular ischemic changes--This report was dictated by a Rn Cardiology/Fellow/Physician Tech Ed Teacher. Ihave personallyreviewed the images as well as the interpretation and agree with the findings.Read by: Jean-Pierre Toussaint MD Resident/Fellow/PhysicianAssistant: Jean-Pierre Toussaint MDDictated Date/time: 08/29/19 09:51Electronically Signed by: Dimitri Lopez 08/29/2009:54FINAL REPORT Plan of Care Name Dates Details Planned Observations Planned Goals not documented Planned Encounters Appointment; TAY SHAH M.D. On: 14-Feb-2020 10:00 Instructions Name Dates Details Instructions not documented [...] Diagnosis: Problem not documented On: 20-Nov-2018 15:30 Appointment; PABLO, TAY, M.D. Encounter Diagnosis: Problem not documented On: 03-Jul-2019 9:00 Appointment; LASHA BRANHAM M.D. Encounter Diagnosis: Problem not documented On: 06-Aug-2019 15:30 Appointment; TAY SHAH M.D. Encounter Diagnosis: Problem not documented On: 16-Aug-2019 11:00
--- OUTSIDE RECORDS SUMMARY | 2019-09-10 19:27 | XMS REPORT | Summary of Care ---
Author Author Juliane Montaño Unknown Address Unknown Phone Unavailable Care Team Providers Care Tissue Recovery Technician Name Role Phone PABLO Ayala, ATY Unavailable Unavailable ALLYSSA STARK, TE Sullivan Unavailable [...] DAILY * Quantity: 90 Refills: 2 PABLO Dumas.TAY Sinclair * Start : 03-Jul-2019 Active Symbicort 160-4.5 MCG/ACT Inhalation Aerosol * Refills: 0 M.A. * Start : 06-Aug-2019 Active 6 GM Inhaler Mirtazapine 7.5 MG Oral Tablet qd * Quantity: 90 Refills: 1 TAY SHAH M.D. * Start : 06-Aug-2019 Active Allergies and Adverse Reactions Name Dates Details No Known Drug Allergies (Allergy) Status: Active Past Medical History Name Dates Details History of arthritis (V13.4, Z87.39) Status: Resolved History of hypertension (V12.59, Z86.79) Status: Resolved Procedures Procedure Dates Details EEG Date: 08-Aug-2019 [QLH] CBC (INCLUDES DIFF/PLT) Date: 06-Aug-2019 [L] CMP14 Date: 06-Aug-2019 [QLH] TSH, 3RD GENERATION Date: 06-Aug-2019 [QLH] RPR Date: 06-Aug-2019 [QLH] SED RATE BY MODIFIED WESTERGREN Date: 06-Aug-2019 [L] Folate, RBC and Serum Date: 06-Aug-2019 [QLH] VITAMIN B12 Date: 06-Aug-2019 [QLH] T4, TOTAL (THYROXINE) Date: 06-Aug-2019 PET Dementia 50696 Date: 08-Aug-2019 History of Hernia Repair Completed [...] smoker Vital Signs Date Test Result Details 61-[id number]:21 BP Systolic 138 mm[Hg] Status: Comments: Location: LUE; Position: Sitting BP Diastolic 65 mm[Hg] Status: Comments: Location: LUE; Position: Sitting Height 57 in Status: Weight 108 lb Status: Body Mass Index Calculated 23.37 kg/m2 Status: Body Surface Area Calculated 1.38 m2 Status: Temperature 97 f Status: Comments: Method: Temporal Heart Rate 76 /min Status: Respiration Rate 16 /min Status: 97-[id number]:41 BP Systolic 148 mm[Hg] Status: Comments: Location: LUE; Position: Sitting BP Diastolic 74 mm[Hg] Status: Comments: Location: LUE; Position: Sitting Height 57 in Status: Weight 111 lb Status: Body Mass Index Calculated 24.02 kg/m2 Status: Body Surface Area Calculated 1.4 m2 Status: Heart Rate 89 /min Status: Results Date Description Value Details 01-[id number]:[address] Dementia [address] Dementia SEE NOTES Comments: EXAM: Brain FDG PET/CTDATE: 08/29/2019 8:04 CSTINDICATION: F03.90-DementiaCOMPARISON: NoneTECHNIQUE: Approximately 30 minutes after IV injection of 10.78 mCi FDG, brainPET/CT imaging was obtained. The PET images were compared to the normal braindatabase from the [employer].FINDINGS:There is decreased metabolism in the right parietal [...] temporal lobes.--This report was dictated by a Registered Respiratory Therapist/Fellow/Physician Clinical Data Coordinator. Ihave personallyreviewed the images as well as the interpretation and agree with the findings.Read by: Елена Gibbs MD Resident/Fellow/PhysicianAssistant: Елена Gibbs MDDictated Date/time: 08/29/19 10:25Electronically Signed by: Shanti Dietrich MD 08/29/2012:02FINAL REPORT 27-[id number] MRI Brain wo contrast 74878 Brain wo contrast MRI SEE NOTES Comments: [...] ischemic changes--This report was dictated by a Registered Respiratory Therapist/Fellow/Physician Clinical Data Coordinator. Ihave personallyreviewed the images as well as [...] Problem not documented On: 20-Nov-2018 15:30 Appointment; TAY SHAH M.D. Encounter Diagnosis: Problem not documented On: 03-Jul-2019 9:00 Appointment; LASHA BRANHAM M.D. Encounter Diagnosis: Problem not documented On: 06-Aug-2019 15:30 Appointment; TAY SHAH M.D. Encounter Diagnosis: Problem not documented On: 16-Aug-2019 11:00
--- OUTSIDE RECORDS SUMMARY | 2019-09-10 19:28 | XMS REPORT | Summary of Care ---
Author Author Jonnie Rodriguez, Viki Organization Unknown Address [facility] Phone Unavailable Care Team Providers Care Preschool Teacher Aide Name Role Phone PABLO Ayala, TAY Unavailable Unavailable Jonnie Rodriguez, Viki Unavailable Unavailable ALLYSSA STARK, TE Sullivan Unavailable Unavailable MARGARITA LOVE [place], ESTHER Unavailable Unavailable PABLO STARK [place], TAY Malloy Unavailable Unavailable YONAS STARK, LASHA Lane Unavailable Unavailable Unavailable Unavailable Functional Status Name Dates Details Functional status health issues are not documented Status: Name Dates Details Cognitive status health issues are not documented Status: Problems Name Dates Details Dementia (294.20, F03.90) Status: Active Shoulder pain, right (719.41, M25.511) Status: Active Depression (311, F32.9) Status: Active Hypothyroidism (244.9, E03.9) Status: Active Mild dementia (294.20, F03.90) Status: Active Acquired leg deformity (736.89, M21.959) Status: Active Benign essential hypertension (401.1, I10) Status: Active Bilateral hearing loss (389.9, H91.93) Status: Active 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 * Start : 03-Jul-2019 Active Losartan Potassium 100 MG Oral Tablet TAKE 1 TABLET DAILY * Quantity: 90 Refills: 2 TAY SHAH M.D. * Start : 03-Jul-2019 Active Symbicort 160-4.5 MCG/ACT Inhalation Aerosol * Refills: 0 * Start : 06-Aug-2019 Active 6 GM [...] T4, TOTAL (THYROXINE) Date: 06-Aug-2019 PET Dementia 76097 Date: 08-Aug-2019 History of Hernia Repair Completed [...] smoker Vital Signs Date Test Result Details 05-[id number]:21 BP Systolic 138 mm[Hg] Status: Comments: Location: LUE; Position: Sitting BP Diastolic 65 mm[Hg] Status: Comments: Location: LUE; Position: Sitting Height 57 in Status: Weight 108 lb Status: Body Mass Index Calculated 23.37 kg/m2 Status: Body Surface Area Calculated 1.38 m2 Status: Temperature 97 f Status: Comments: Method: Temporal Heart Rate 76 /min Status: Respiration Rate 16 /min Status: Results Date Description Value Details 05-Ose-47275:[address] Dementia [address] Dementia SEE NOTES Comments: EXAM: Brain FDG PET/CTDATE: 08/29/2019 8:04 CSTINDICATION: F03.90-DementiaCOMPARISON: NoneTECHNIQUE: Approximately 30 minutes after IV injection of 10.78 mCi FDG, brainPET/CT imaging was obtained. The PET images were compared to the normal braindatabase from the [employer].FINDINGS:There is decreased metabolism in the right parietal [...] temporal lobes.--This report was dictated by a Meter Mechanic/Fellow/Physician Trim Stencil Maker. Ihave personallyreviewed the images as well as the interpretation and agree with the findings.Read by: Елена Gibbs MD Resident/Fellow/PhysicianAssistant: Елена Gibbs MDDictated Date/time: 08/29/19 10:25Electronically Signed by: Shanti Dietrich MD 08/29/2012:02FINAL REPORT [id number]:30 MRI Brain wo contrast 01335 Brain wo contrast MRI SEE NOTES Comments: [...] ischemic changes--This report was dictated by a Meter Mechanic/Fellow/Physician Trim Stencil Maker. Evan personallyreviewed the images as well as the interpretation and agree with the findings.Read by: Jean-Pierre Toussaint MD Resident/Fellow/PhysicianAssistant: Jean-Pierre Toussaint MDDictated Date/time: 08/29/19 09:51Electronically Signed by: Dimitri Lopez 08/29/2009:54FINAL REPORT Plan of Care Name Dates Details Planned Observations Planned Goals not documented Planned Encounters Appointment; TAY SHAH M.D. On: 14-Feb-2020 10:00 Interventions Provided Discussion/Summary* Guideline Used: * Other: Ines STARK media relations manager * Benita RN form [facility] in [place] calls to request we page Dr. Null. * Pt is in ER room 7 and they need to report Pt is confused * [place] text to Dr. Null * Intended Caller Action: * Other: Ines STARK media relations manager Instructions Name Dates Details Instructions not documented [...]
--- OUTSIDE RECORDS SUMMARY | 2019-09-10 19:28 | XMS REPORT | Summary of Care ---
Author Author Juliane Montaño Organization Unknown Address Unknown Phone Unavailable Care Team Providers Care Vp Research Name Role Phone PABLO Ayala, TAY Unavailable Unavailable Juliane Montaño Unavailable Unavailable ALLYSSA STARK, TE Sullivan Unavailable Unavailable MARGARITA LOVE [place], ESTHER Unavailable Unavailable PABLO STARK [place], TAY Malloy Unavailable Unavailable YONAS STARK, LASHA [...] T4, TOTAL (THYROXINE) Date: 06-Aug-2019 PET Dementia 52603 Date: 08-Aug-2019 History of Hernia Repair Completed [...] smoker Vital Signs Date Test Result Details 09-[id number]:21 BP Systolic 138 mm[Hg] Status: Comments: Location: [...] /min Status: Results Date Description Value Details 81-Zmx-17526:[address] Dementia [address] Dementia SEE NOTES Comments: EXAM: Brain FDG PET/CTDATE: 08/29/2019 8:04 CSTINDICATION: F03.90-DementiaCOMPARISON: NoneTECHNIQUE: Approximately 30 minutes after IV injection of 10.78 mCi FDG, brainPET/CT imaging was obtained. The PET images were compared to the normal braindatabase from the [employer].FINDINGS:There is decreased metabolism in the right parietal [...] temporal lobes.--This report was dictated by a Potato Pancake Frier/Fellow/Physician Solid Waste Facility Supervisor. Ihave personallyreviewed the images as well as the interpretation and agree with the findings.Read by: Елена Gibbs MD Resident/Fellow/PhysicianAssistant: Елена Gibbs MDDictated Date/time: 08/29/19 10:25Electronically Signed by: Shanti Dietrich MD 08/29/2012:02FINAL REPORT 52-[id number] MRI Brain wo contrast 09946 Brain wo contrast MRI SEE NOTES Comments: [...] ischemic changes--This report was dictated by a Potato Pancake Frier/Fellow/Physician Solid Waste Facility Supervisor. Evan personallyreviewed the images as well as [...]
[2019-09-10 20:00] VITALS: BP 138/65
[2019-09-10 20:19] VITALS: BP 120/58
[2019-09-10] MEDS ORDERED: HALOPERIDOL 1 MG TAB PO NR (20:30)
[2019-09-10] MEDS ORDERED: SODIUM CHLORIDE 0.9% 250ML 250 ML ONE (20:44)
--- NOTE | 2019-09-10 22:59 | Consultation ---
DATE OF CONSULTATION: 09/10/2019 Cardiology Consultation HISTORY OF PRESENT ILLNESS: Maria L Stokes is an 83-year-old female with primary history of hypertension, hypothyroidism, GERD, and recurrent UTI, admitted complaining of vomiting associated with excessive dry heaves that started acutely while she was reading a book. The patient denies any chest pain, palpitations, or dizziness. The patient reports of having that generalized feeling of fatigue or not feeling well, hence family called the EMS. PAST MEDICAL HISTORY: Hypertension, hypothyroidism, GERD, and recurrent UTI. FAMILY HISTORY: Mom had of heart failure. Dad of cancer. SOCIAL HISTORY: None smoker, none alcohol or drug use. ALLERGIES: NO KNOWN DRUG ALLERGIES. MEDICATIONS: She had the following, levothyroxine 25 mcg daily, losartan 50 mg daily, pantoprazole 40 mg daily, hydrochlorothiazide 12.5 mg daily, diclofenac epolamine, buprenorphine patch weekly. PHYSICAL EXAMINATION: VITAL SIGNS: Blood pressure is 123/48, temperature is 98.7, pulse 64, respiration is 17, pulse ox 98% on 2 L nasal cannula. GENERAL: The patient is well developed, well nourished, in no acute distress. SKIN: Normal in appearance, texture, and temperature. Warm and dry. HEENT: The patient's cranium is normocephalic and atraumatic. Pupils are equally round and reactive to light and accommodation. Sclerae nonicteric. Ears are normal. Mucosa is moist. Throat is clear. NECK: Supple. Full range of motion. No thyromegaly. No JVD. The patient is hard of hearing. RESPIRATORY: Normal respiratory effort. LUNGS: Clear to auscultation bilaterally. No wheezing. No rhonchi or rales. CARDIOVASCULAR: Regular rate and rhythm. Now back in sinus rhythm. No significant heart murmurs. GI: Soft, nontender, and nondistended. Bowel sounds are present. EXTREMITIES: No cyanosis, no clubbing or edema. NEUROVASCULAR: Motor is intact. Pulses are palpable, 1+ throughout. NEUROLOGIC: Motor and sensory examination of the upper and lower extremities is normal. Reflexes are normal and symmetrical bilaterally. IMPRESSION: Maria L Stokes is an 83-year-old female admitted for new onset atrial fibrillation with RVR. She was given labetalol by EMS, which improved the heart rate. Initial EKG showed atrial fibrillation with RVR with incomplete right bundle branch block. Three sets of cardiac enzymes are negative for ischemia. PLAN: 1. Initiate AV lena blockers, beta christine, metoprolol and started on antiarrhythmic amiodarone p.o. 2. Initiate anticoagulation for stroke reduction and aspirin and Lovenox. 3. Do an echocardiogram. 4. Monitor on telemetry and hemodynamic monitoring. Also monitor electrolyte imbalance and give replacement if needed. 5. Further cardiac workup depending on clinical course. The patient may need direct current cardioversion, if the patient will not respond promptly to pharmacy. Thank you for your consultation. We will continue to follow. Dictated by Geno Justin NP MD KAROLYN Osei/EMILY /[id number]
[2019-09-11] VITALS (8 sets, daily range): BP systolic 113–142; BP diastolic 54–72
[2019-09-11] MEDS: ENOXAPARIN SOD INJ 60 MG/0.6 ML SYR SC SCH ×2 (08:55→20:15)
[2019-09-11] MEDS: CEFTRIAXONE SOD 1 GM/NS 50 ML 50 ML IV SCH (08:57)
[2019-09-11] MEDS: FAMOTIDINE 20 MG/2 ML VIAL IV SCH (08:57)
[2019-09-11] MEDS: ASPIRIN 81 MG ENTERIC COATED PO SCH (08:59)
[2019-09-11] MEDS: AMIODARONE HCL 200 MG TAB PO SCH (08:59)
[2019-09-11] MEDS: METOPROLOL TARTRATE 25 MG TAB PO SCH ×2 (09:00→16:15)
[2019-09-11] MEDS ORDERED: ONDANSETRON HCL 4 MG ORAL DISINTEGRATING TAB PO PRN (09:15)
[2019-09-11] MEDS: LEVOTHYROXINE SODIUM 25 MCG TABLET PO SCH (11:23)
[2019-09-11] MEDS: MIRTAZAPINE 15 MG TAB PO SCH (21:00)
[2019-09-11] MEDS: FAMOTIDINE 20 MG TAB PO SCH (21:00)
[2019-09-12] VITALS: BP 133/67
[2019-09-12 04:00] VITALS: BP 132/65
[2019-09-12 05:17] LABS: BASOPHILS % 0.3 % (0.0-1.0); EOSINOPHILS # (AUTO) 0.1 (0.0-0.4); EOSINOPHILS % 3.8 % (0.0-6.0); HEMATOCRIT 29.3 % (34.2-44.1); HEMOGLOBIN 9.5 g/dL (12.0-16.0); LYMPHOCYTES # (AUTO) 1.4 (1.0-3.2); LYMPHOCYTES % 41.2 % (18.0-39.1); MEAN CORPUSCULAR HEMOGLOBIN 27.9 pg (28-32); MEAN CORPUSCULAR HGB CONC 32.4 g/dL (31-35); MEAN CORPUSCULAR VOLUME 85.9 fL (81-99); MONOCYTES # (AUTO) 0.3 (0.2-0.8); MONOCYTES % 8.1 % (4.4-11.3); NEUTROPHILS # (AUTO) 1.6 (2.1-6.9); NEUTROPHILS % 46.3 % (38.7-80.0); PLATELET COUNT 158 x10e3/uL (140-360); RED BLOOD COUNT 3.41 x10e6/uL (3.6-5.1); RED CELL DISTRIBUTION WIDTH 14.2 % (11.7-14.4)
[2019-09-12 05:35] LABS: BLOOD UREA NITROGEN 12 mg/dL (7-26); BUN/CREATININE RATIO 18 (6-25); CALCIUM 8.7 mg/dL (8.4-10.2); CARBON DIOXIDE 25 mmol/L (22-29); CHLORIDE 104 mmol/L (98-107); CREATININE, SERUM 0.66 mg/dL (0.57-1.11); EST GLOMERULAR FILTRATION RATE > 60 ML/MIN (60-); GLUCOSE 90 mg/dL (74-118); SODIUM 136 mmol/L (136-145)
[2019-09-12] MEDS: CEFTRIAXONE SOD 1 GM/NS 50 ML 50 ML IV SCH (06:00)
[2019-09-12] MEDS ORDERED: PANTOPRAZOLE SOD 40 MG TABEC PO SCH (07:30)
[2019-09-12 08:44] VITALS: BP_SYST 129; BP_SYST 132; BP_DIAS 65; BP_DIAS 68
[2019-09-12] MEDS: FAMOTIDINE 20 MG TAB PO SCH ×2 (08:55→21:00)
[2019-09-12] MEDS: METOPROLOL TARTRATE 25 MG TAB PO SCH ×2 (08:55→17:13)
[2019-09-12] MEDS: LEVOTHYROXINE SODIUM 25 MCG TABLET PO SCH (08:55)
[2019-09-12] MEDS: ENOXAPARIN SOD INJ 60 MG/0.6 ML SYR SC SCH ×2 (08:55→20:30)
[2019-09-12] MEDS: AMIODARONE HCL 200 MG TAB PO SCH (08:55)
[2019-09-12] MEDS: ASPIRIN 81 MG ENTERIC COATED PO SCH (08:55)
[2019-09-12] MEDS ORDERED: LOSARTAN POTASSIUM 25 MG TAB PO SCH (09:00)
[2019-09-12 12:00] VITALS: BP 120/60
[2019-09-12 16:00] VITALS: BP 133/70
[2019-09-12] MEDS ORDERED: ASPIRIN EC81 MG PO (18:05)
[2019-09-12] MEDS ORDERED: COZAAR25 MG PO (18:05)
[2019-09-12] MEDS ORDERED: AMIODARONE HCL200 MG PO (18:05)
[2019-09-12] MEDS ORDERED: LOPRESSOR25 MG PO (18:05)
[2019-09-12 20:00] VITALS: BP 161/70
[2019-09-12] MEDS: MIRTAZAPINE 15 MG TAB PO SCH (21:00)
[2019-09-13] VITALS: BP 127/60
[2019-09-13 04:00] VITALS: BP 129/60
[2019-09-13] MEDS: CEFTRIAXONE SOD 1 GM/NS 50 ML 50 ML IV SCH (06:02)
[2019-09-13 07:49] VITALS: BP 120/56
[2019-09-13 08:54] VITALS: BP 120/56
[2019-09-13] MEDS ORDERED: COZAAR25 MG PO (09:06)
[2019-09-13] MEDS ORDERED: CEFUROXIME250 MG PO (09:11)
--- NOTE | 2019-09-14 04:58 | Discharge Summary ---
DISCHARGE DIAGNOSES: 1. New onset atrial fibrillation, now converted to normal sinus rhythm. 2. Urinary tract infection. 3. Dementia. 4. Hypertension. HOSPITAL COURSE: Ms. Stokes is a pleasant 83-year-old lady patient of Dr. Dorantes. She is a new patient to the NH system and she has been recently diagnosed with dementia. She was brought by the family because of nausea, vomiting, and not feeling well, also more confused. She was found to have atrial fibrillation with rapid ventricular response in addition to urinary tract infection. She was admitted to the hospital. She was treated with IV diltiazem, IV antibiotics. A consultation was requested with Dr. Norwood. Dr. Norwood recommended to start amiodarone and because of the patient's significant problems with dementia he agreed probably anticoagulation with either warfarin or novel oral anticoagulants was not warranted because of the increased risks of fall. The patient rapidly converted to normal sinus rhythm. She is being discharged home in stable conditions. She is getting prescription for amiodarone 200 mg a day, metoprolol tartrate 25 mg twice daily. Her dose of losartan has been lower to 25 mg daily. She is to take aspirin 81 mg daily. She is to take cefuroxime axetil 250 mg twice a day for three days. I spent 30 minutes yjcw-[id number] with the patient and the family, mainly explaining to the family, the need to monitor her mental status and to administered medications timely. They have requested interview with medical case manager and they were given resources of care in the community. MD ALISE Jackson/AMINATAL /[id number]
== END 2019-09-13 10:36 | disposition home or self-care (01) | DRG 309 ==
LOC: ER 16:56 → ERHOLD 22:45 → MED/SURG2 09-10 17:13
PROVIDERS: ADMIT Internal Medicine; ATTEND Internal Medicine
DX: I48.0 Paroxysmal atrial fibrillation (principal); N39.0 Urinary tract infection, site not specified; I10 Essential (primary) hypertension; F03.90 Unspecified dementia, unspecified severity, without behavioral disturbance, psychotic disturbance, mood disturbance, and anxiety; K21.9 Gastro-esophageal reflux disease without esophagitis; E03.9 Hypothyroidism, unspecified
CPT/HCPCS: 36415; 71045; 80048; 80053; 80061; 81001; 82550; 82553; 83735; 83880; 84443; 84484; 85025; 85610; 85730; 87086; 87186; 93005; 93306; 97139; 99284; J0696; J1650; J2405; J7040; J7050

== ENCOUNTER 2019-10-10 10:29 | Emergency (ER) | payer MEDICARE ==
[~2019-10-10] VITALS: Ht 149.9 cm; Wt 50.4 kg
[~2019-10-10 10:29] MED LIST changes: +AMIODARONE HCL200 MG PO; +ASPIRIN EC81 MG PO; +CEFUROXIME250 MG PO; +LOPRESSOR25 MG PO; +MIRTAZAPINE15 MG PO
--- OUTSIDE RECORDS SUMMARY | 2019-10-10 10:34 | XMS REPORT | Summary of Care ---
Author Author Jonnie Rodriguez, Viki Organization Unknown Address [facility] Phone Unavailable Care Team Providers Care Marketing Intelligence Manager Name Role Phone PABLO Ayala, TAY Unavailable Unavailable Jonnie Rodriguez, Viki Unavailable Unavailable ALLYSSA STARK, TE Sullivan Unavailable Unavailable MARGARITA LOVE [place], ESTHER Unavailable Unavailable PABLO STARK [place], TAY Malloy Unavailable Unavailable YONAS STARK, LASHA [...] T4, TOTAL (THYROXINE) Date: 06-Aug-2019 PET Dementia 23903 Date: 08-Aug-2019 History of Hernia Repair Completed [...] smoker Vital Signs Date Test Result Details [id number] BP Systolic 138 mm[Hg] Status: Comments: Location: [...] /min Status: Results Date Description Value Details [id number] Dementia [address] Dementia SEE NOTES Comments: EXAM: Brain FDG PET/CTDATE: 08/29/2019 8:04 CSTINDICATION: F03.90-DementiaCOMPARISON: NoneTECHNIQUE: Approximately 30 minutes after IV injection of 10.78 mCi FDG, brainPET/CT imaging was obtained. The PET images were compared to the normal braindatabase from the [employer]FINDINGS:There is decreased metabolism in the right parietal [...] temporal lobes.--This report was dictated by a Border Patrol Agent/Fellow/Physician Repairing Calibrator. Ihave personallyreviewed the images as well as the interpretation and agree with the findings.Read by: Елена Gibbs MD Resident/Fellow/PhysicianAssistant: Елена Gibbs MDDictated Date/time: 08/29/19 10:25Electronically Signed by: Shanti Dietrich MD 08/29/2012:02FINAL REPORT [id number] MRI Brain wo contrast 00175 Brain wo contrast MRI SEE NOTES Comments: [...] ischemic changes--This report was dictated by a Border Patrol Agent/Fellow/Physician Repairing Calibrator. Evan personallyreviewed the images as well as the interpretation and agree with the findings.Read by: Jean-Pierre Toussaint MD Resident/Fellow/PhysicianAssistant: Jean-Pierre Toussaint MDDictated Date/time: 08/29/19 09:51Electronically Signed by: Dimitri Lopez 08/29/2009:54FINAL REPORT Plan of Care Name Dates Details Planned Observations Planned Goals not documented Planned Encounters Appointment; TAY SHAH M.D. On: 14-Feb-2020 10:00 Interventions Provided Discussion/Summary* Guideline Used: * Other: Ines STARK credit union examiner * Concetta Rodriges. requesting I page Dr. Null. * [place] text sent. * Intended Caller Action: * Other: Ines STARK credit union examiner Instructions Name Dates Details Instructions not documented [...]
--- OUTSIDE RECORDS SUMMARY | 2019-10-10 10:34 | XMS REPORT | Summary of Care ---
Author Author Anand Briones Unknown Address Unknown Phone Unavailable Care Team Providers Care Management Engineer Name Role Phone PABLO Ayala, TAY Unavailable Unavailable ALLYSSA STARK, TE Sullivan Unavailable Unavailable MARGARITA LOVE [place], ESTHER Unavailable Unavailable PABLO STARK [place], TAY Malloy Unavailable Unavailable YONAS STARK, LASHA Lane Unavailable Unavailable ANNA PHD [place], ANTONIO Lane Unavailable Unavailable Unavailable Unavailable Functional Status [...] Sodium TABS * Refills: 0 M.A. Active Losartan Potassium 100 MG Oral Tablet TAKE 1 TABLET DAILY * Quantity: 90 Refills: 2 TAY SHAH M.D. * Start : 03-Jul-2019 Active Symbicort 160-4.5 MCG/ACT Inhalation Aerosol * Refills: 0 M.A. * Start : 06-Aug-2019 Active 6 GM Inhaler hydroCHLOROthiazide 12.5 MG Oral Tablet TAKE 1 TABLET BY MOUTH EVERY DAY * Quantity: 90 Refills: 2 TAY SHAH M.D. * Start : 03-Jul-2019 Active Mirtazapine 7.5 MG Oral Tablet qd * Quantity: 90 Refills: 1 PABLO Ayala TAY * Start : 06-Aug-2019 Active Allergies [...] T4, TOTAL (THYROXINE) Date: 06-Aug-2019 PET Dementia 50399 Date: 08-Aug-2019 History of Hernia Repair Completed [...] to report Results Date Description Value Details [id number] Dementia [address] Dementia SEE NOTES Comments: EXAM: Brain FDG PET/CTDATE: 08/29/2019 8:04 CSTINDICATION: F03.90-DementiaCOMPARISON: NoneTECHNIQUE: Approximately 30 minutes after IV injection of 10.78 mCi FDG, brainPET/CT imaging was obtained. The PET images were compared to the normal braindatabase from the [employer].FINDINGS:There is decreased metabolism in the right parietal [...] temporal lobes.--This report was dictated by a Water Plant Maintenance Mechanic/Fellow/Physician Assistant Professor Of Chemistry. Ihave personallyreviewed the images as well as the interpretation and agree with the findings.Read by: Елена Gibbs MD Resident/Fellow/PhysicianAssistant: Елена Gibbs MDDictated Date/time: 08/29/19 10:25Electronically Signed by: Shanti Dietrich MD 08/29/2012:02FINAL REPORT [id number] MRI Brain wo contrast 43750 Brain wo contrast MRI SEE NOTES Comments: [...] ischemic changes--This report was dictated by a Water Plant Maintenance Mechanic/Fellow/Physician Assistant Professor Of Chemistry. Ihave personallyreviewed the images as well as the interpretation and agree with the findings.Read by: Jean-Pierre Toussaint MD Resident/Fellow/PhysicianAssistant: Jean-Pierre Toussaint MDDictated Date/time: 08/29/19 09:51Electronically Signed by: Dimitri Lopez 08/29/2009:54FINAL REPORT :55 [] LIPID PANEL WITH REFLEX TO DIRECT LDL CHOLESTEROL, TOTAL 163 mg/dl (Normal) Range: <200 HDL CHOLESTEROL 71 mg/dl (Normal) Range: >50 TRIGLYCERIDES 63 mg/dl (Normal) Range: <150 LDL-CHOLESTEROL 78 {MG/DL__CAL} (Normal) Comments: Reference range: <100 Desirable range <100 mg/dL for primary prevention; <70 mg/dL for patients with CHD or diabetic patients with > or=2 CHD risk factors. LDL-C is now calculated using mikey Maddox calculation, which is a validated novel method providing better accuracy than the Friedewald equation in the estimation of LDL-C. Billy ACEVEDO et al. KALYAN. 2013;310(19): 0449-6630 (http:/ /education.[employer]/faq/HMZ051) CHOL/HDLC RATIO 2.3 {CALC} (Normal) Range: <5.0 NON HDL CHOLESTEROL 92 {MG/DL__CAL} (Normal) Range: <130 Comments: For patients with diabetes plus 1 major ASCVD risk factor, treating to a non-HDL-C goal of <100 mg/dL (LDL-C of <70 mg/dL) is considered a therapeutic option. :55 [[facility]] CMP W/EGFR GLUCOSE 92 mg/dl (Normal) Range: 65-99 Comments: Fasting reference interval UREA NITROGEN (BUN) 19 mg/dl (Normal) Range: 7-25 CREATININE 0.79 mg/dl (Normal) Range: 0.60-0.88 Comments: For patients >49 years of age, the reference limitfor Creatinine is approximately 13% higher for peopleidentified as -Nepalese. eGFR NON- 69 {ML/MIN/1.7} (Normal) Range: > OR=60 eGFR 80 {ML/MIN/1.7} (Normal) Range: > OR=60 BUN/CREATININE RATIO NOT APPLICABLE {CALC} Range: 6-22 SODIUM 138 mmol/L (Normal) Range: 135-146 POTASSIUM 4.2 mmol/L (Normal) Range: 3.5-5.3 CHLORIDE 103 mmol/L (Normal) Range: 98-110 CARBON DIOXIDE 26 mmol/L (Normal) Range: 20-32 CALCIUM 9.4 mg/dl (Normal) Range: 8.6-10.4 PROTEIN, TOTAL 6.4 g/dl (Normal) Range: 6.1-8.1 ALBUMIN 4.0 g/dl (Normal) Range: 3.6-5.1 GLOBULIN 2.4 {G/DL__CALC} (Normal) Range: 1.9-3.7 ALBUMIN/GLOBULIN RATIO 1.7 {CALC} (Normal) Range: 1.0-2.5 BILIRUBIN, TOTAL 0.5 mg/dl (Normal) Range: 0.2-1.2 ALKALINE PHSPHATASE 76 u/l (Normal) Range: 33-130 AST 14 u/l (Normal) Range: 10-35 ALT 10 u/l (Normal) Range: 6-29 :55 [[facility]] URINALYSIS, COMPLETE COLOR YELLOW (Normal) Range: YELLOW APPEARANCE TURBID (Abnormal) Range: CLEAR SPECIFIC GRAVITY 1.016 (Normal) Range: 1.001-1.035 PH 5.5 (Normal) Range: 5.0-8.0 GLUCOSE NEGATIVE (Normal) Range: NEGATIVE BILIRUBIN NEGATIVE (Normal) Range: NEGATIVE KETONES NEGATIVE (Normal) Range: NEGATIVE OCCULT BLOOD 1+ (Abnormal) Range: NEGATIVE PROTEIN 1+ (Abnormal) Range: NEGATIVE NITRITE NEGATIVE (Normal) Range: NEGATIVE LEUKOCYTE ESTERASE 3+ (Abnormal) Range: NEGATIVE WBC > OR=60 {/HPF} (Abnormal) Range: < OR=5 RBC 0-2 {/HPF} (Normal) Range: < OR=2 SQUAMOUS EPITHELIAL CELLS 0-5 {/HPF} Range: < OR=5 BACTERIA MANY {/HPF} (Abnormal) Range: NONE SEEN HYALINE CAST NONE SEEN {/LPF} (Normal) Range: NONE SEEN :55 [[facility]] CBC (INCLUDES DIFF/PLT) WHITE BLOOD CELL COUNT 4.1 {Thousand/u} (Normal) Range: 3.8-10.8 RED BLOOD CELL COUNT 4.04 {Million/uL} (Normal) Range: 3.80-5.10 HEMAGLOBIN 10.9 g/dl (Below low threshold) Range: 11.7-15.5 HEMATOCRIT 34.4 % (Below low threshold) Range: 35.0-45.0 MCV 85.1 fL (Normal) Range: 80.0-100.0 MCH 27.0 pg (Normal) Range: 27.0-33.0 MCHC 31.7 g/dl (Below low threshold) Range: 32.0-36.0 RDW 14.1 % (Normal) Range: 11.0-15.0 PLATELET COUNT 218 {Thousand/u} (Normal) Range: 140-400 MPV 10.6 fL (Normal) Range: 7.5-12.5 ABSOLUTE NEUTROPHILS 2280 {cells/uL} (Normal) Range: 0601-9740 ABSOLUTE LYMPHOCYTES 1419 {cells/uL} (Normal) Range: 850-3900 ABSOLUTE MONOCYTES 303 {cells/uL} (Normal) Range: 200-950 ABSOLUTE EOSINOPHILS 70 {cells/uL} (Normal) Range: 15-500 ABSOLUTE BASOPHILS 29 {cells/uL} (Normal) Range: 0-200 NEUTROPHILS 55.6 % (Normal) LYMPHOCYTES 34.6 % (Normal) MONOCYTES 7.4 % (Normal) EOSINOPHILS 1.7 % (Normal) BASOPHILS 0.7 % (Normal) :55 [[facility]] T4, FREE T4, FREE 1.1 ng/dl (Normal) Range: 0.8-1.8 :55 [[facility]] TSH, 3RD GENERATION Comments: REPORT COMMENT:FASTING:YES TSH 5.63 {MIU/L} (Above high threshold) Range: 0.40-4.50 Plan of Care Name Dates Details Planned Observations Planned Goals not documented Planned Encounters Appointment; TAY SHAH M.D. On: 26-Sep-2019 12:30 Appointment; ANTONIO CASTILLO, PHD On: 27-Sep-2019 8:30 Appointment; TAY SHAH M.D. On: 14-Feb-2020 10:00 [...]
--- OUTSIDE RECORDS SUMMARY | 2019-10-10 10:34 | XMS REPORT | Summary of Care ---
Author Author Juliane Montaño Organization Unknown Address Unknown Phone Unavailable Care Team Providers Care Metal Work Duct Installer Name Role Phone PABLO Ayala, TAY Unavailable Unavailable Juliane Montaño Unavailable Unavailable TE SPIVEY MD Unavailable Unavailable MARGARITA LOVE [place], ESTHER Unavailable Unavailable PABLO STARK [place], TAY Malloy Unavailable Unavailable YONAS STARK, LASHA [...] T4, TOTAL (THYROXINE) Date: 06-Aug-2019 PET Dementia 43930 Date: 08-Aug-2019 History of Hernia Repair Completed [...] smoker Vital Signs Date Test Result Details [id number] BP Systolic 138 mm[Hg] Status: Comments: Location: [...] /min Status: Results Date Description Value Details [id number] Dementia [address] Dementia SEE NOTES Comments: EXAM: Brain FDG PET/CTDATE: 08/29/2019 8:04 CSTINDICATION: F03.90-DementiaCOMPARISON: NoneTECHNIQUE: Approximately 30 minutes after IV injection of 10.78 mCi FDG, brainPET/CT imaging was obtained. The PET images were compared to the normal braindatabase from the [employer].FINDINGS:There is decreased metabolism in the right parietal [...] temporal lobes.--This report was dictated by a Hazmat Tanker Driver/Fellow/Physician Hvac Sales Representative. Ihave personallyreviewed the images as well as the interpretation and agree with the findings.Read by: Елена Gibbs MD Resident/Fellow/PhysicianAssistant: Елена Gibbs MDDictated Date/time: 08/29/19 10:25Electronically Signed by: Shanti Dietrich MD 08/29/2012:02FINAL REPORT [id number] MRI Brain wo contrast 80504 Brain wo contrast MRI SEE NOTES Comments: [...] ischemic changes--This report was dictated by a Hazmat Tanker Driver/Fellow/Physician Hvac Sales Representative. Evan personallyreviewed the images as well as the interpretation and agree with the findings.Read by: Jean-Pierre Toussaint MD Resident/Fellow/PhysicianAssistant: Jean-Pierre Toussaint MDDictated Date/time: 08/29/19 09:51Electronically Signed by: Dimitri Lopez 08/29/2009:54FINAL REPORT :55 [Q] LIPID PANEL WITH REFLEX TO DIRECT LDL CHOLESTEROL, TOTAL 163 mg/dl (Normal) Range: <200 HDL CHOLESTEROL 71 mg/dl (Normal) Range: >50 TRIGLYCERIDES 63 mg/dl (Normal) Range: <150 LDL-CHOLESTEROL 78 {MG/DL__CAL} (Normal) Comments: Reference range: <100 Desirable range <100 mg/dL for primary prevention; <70 mg/dL for patients with CHD or diabetic patients with > or=2 CHD risk factors. LDL-C is now calculated using th vannesa Maddox calculation, which is a validated novel method providing better accuracy than the Friedewald equation in the estimation of LDL-C. Billy SS et al. KALYAN. 2013;310(19): 7665-7678 (http:/ /education.[employer]/faq/BIA635) CHOL/HDLC RATIO 2.3 {CALC} (Normal) Range: <5.0 NON HDL CHOLESTEROL 92 {MG/DL__CAL} (Normal) Range: <130 Comments: For patients with diabetes plus 1 major ASCVD risk factor, treating to a non-HDL-C goal of <100 mg/dL (LDL-C of <70 mg/dL) is considered a therapeutic option. :55 [[facility]] CMP W/EGFR GLUCOSE 92 mg/dl (Normal) Range: 65-99 Comments: Fasting reference interval UREA NITROGEN (BUN) 19 mg/dl (Normal) Range: 7-25 CREATININE 0.79 mg/dl (Normal) Range: 0.60-0.88 Comments: For patients >49 years of age, the reference limitfor Creatinine is approximately 13% higher for peopleidentified as -Ukrainian. eGFR NON- 69 {ML/MIN/1.7} (Normal) Range: > [...] ALT 10 u/l (Normal) Range: 6-29 :55 [[facility]] URINALYSIS, COMPLETE COLOR YELLOW (Normal) Range: [...] 7.5-12.5 ABSOLUTE NEUTROPHILS 2280 {cells/uL} (Normal) Range: 3488-3296 ABSOLUTE LYMPHOCYTES 1419 {cells/uL} (Normal) Range: 850-3900 ABSOLUTE MONOCYTES 303 {cells/uL} (Normal) Range: 200-950 ABSOLUTE EOSINOPHILS 70 {cells/uL} (Normal) Range: 15-500 ABSOLUTE BASOPHILS 29 {cells/uL} (Normal) Range: 0-200 NEUTROPHILS 55.6 % (Normal) LYMPHOCYTES 34.6 % (Normal) MONOCYTES 7.4 % (Normal) EOSINOPHILS 1.7 % (Normal) BASOPHILS 0.7 % (Normal) :55 [[facility]] T4, FREE T4, FREE 1.1 ng/dl (Normal) Range: 0.8-1.8 :55 [[facility]] TSH, 3RD GENERATION Comments: REPORT COMMENT:FASTING:YES TSH 5.63 {MIU/L} (Above high threshold) Range: 0.40-4.50 Plan of Care Name Dates Details Planned Observations Planned Goals not documented Planned Encounters Neuro[facility]ology Evaluation at [facility] Referral Appointment; ANTONIO CASTILLO, PHD On: 16-Sep-2019 8:30 Appointment; TAY SHAH M.D. On: 26-Sep-2019 12:30 Appointment; TYA SHAH M.D. On: 14-Feb-2020 10:00 Instructions Name [...]
--- OUTSIDE RECORDS SUMMARY | 2019-10-10 10:34 | XMS REPORT | Summary of Care ---
Author Author Елена Bergeron M.A. Unknown Address Unknown Phone Unavailable Care Team Providers Care Planner Scheduler Name Role Phone PABLO Ayala, TAY Unavailable Unavailable ALLYSSA STARK, TE Sullivan Unavailable Unavailable MARGARITA LOVE [place], ESTHER Unavailable Unavailable PABLO STARK [place], TAY Malloy Unavailable Unavailable LASHA BRANHAM MD Unavailable Unavailable ANNA PHD [place], ANTONIO Lane [...] EVERY DAY * Quantity: 90 Refills: 2 PABLO Dumas.TAY Sinclair * Start : 03-Jul-2019 Active Losartan Potassium [...] T4, TOTAL (THYROXINE) Date: 06-Aug-2019 PET Dementia 05282 Date: 08-Aug-2019 History of Hernia Repair Completed [...] to report Results Date Description Value Details [id number] Dementia [address] Dementia SEE NOTES Comments: EXAM: Brain FDG PET/CTDATE: 08/29/2019 8:04 CSTINDICATION: F03.90-DementiaCOMPARISON: NoneTECHNIQUE: Approximately 30 minutes after IV injection of 10.78 mCi FDG, brainPET/CT imaging was obtained. The PET images were compared to the normal braindatabase from the [facility].FINDINGS:There is decreased metabolism in the right parietal [...] temporal lobes.--This report was dictated by a Pastry Cook Apprentice/Fellow/Physician Forestry Patrolman. Ihave personallyreviewed the images as well as the interpretation and agree with the findings.Read by: Елена Gibbs MD Resident/Fellow/PhysicianAssistant: Елена Gibbs MDDictated Date/time: 08/29/19 10:25Electronically Signed by: Shanti Dietrich MD 08/29/2012:02FINAL REPORT [id number] MRI Brain wo contrast [id number] Brain wo contrast MRI SEE NOTES Comments: [...] ischemic changes--This report was dictated by a Pastry Cook Apprentice/Fellow/Physician Forestry Patrolman. Ihave personallyreviewed the images as well as [...] LDL-C. Billy ACEVEDO et al. KALYAN. 2013;310(19): 0514-9772 (http:/ /education.[employer].com/faq/RZB138) CHOL/HDLC RATIO 2.3 {CALC} (Normal) Range: <5.0 NON HDL CHOLESTEROL 92 {MG/DL__CAL} (Normal) Range: <130 Comments: For patients with diabetes plus 1 major ASCVD risk factor, treating to a non-HDL-C goal of <100 mg/dL (LDL-C of <70 mg/dL) is considered a therapeutic option. :55 [[facility]] CMP W/EGFR GLUCOSE 92 mg/dl (Normal) Range: 65-99 Comments: Fasting reference interval UREA NITROGEN (BUN) 19 mg/dl (Normal) Range: 7-25 CREATININE 0.79 mg/dl (Normal) Range: 0.60-0.88 Comments: For patients >49 years of age, the reference limitfor Creatinine is approximately 13% higher for peopleidentified as -Malian. eGFR NON- 69 {ML/MIN/1.7} (Normal) Range: > [...] ALT 10 u/l (Normal) Range: 6-29 :55 [[facility]] URINALYSIS, COMPLETE COLOR YELLOW (Normal) Range: YELLOW [...] 7.5-12.5 ABSOLUTE NEUTROPHILS 2280 {cells/uL} (Normal) Range: 1389-8036 ABSOLUTE LYMPHOCYTES 1419 {cells/uL} (Normal) Range: 850-3900 ABSOLUTE MONOCYTES 303 {cells/uL} (Normal) Range: 200-950 ABSOLUTE EOSINOPHILS 70 {cells/uL} (Normal) Range: 15-500 ABSOLUTE BASOPHILS 29 {cells/uL} (Normal) Range: 0-200 NEUTROPHILS 55.6 % (Normal) LYMPHOCYTES 34.6 % (Normal) MONOCYTES 7.4 % (Normal) EOSINOPHILS 1.7 % (Normal) BASOPHILS 0.7 % (Normal) :55 [[facility]] T4, FREE T4, FREE 1.1 ng/dl (Normal) Range: 0.8-1.8 :55 [[facility]] TSH, 3RD GENERATION Comments: REPORT COMMENT:FASTING:YES TSH 5.63 {MIU/L} (Above high threshold) Range: 0.40-4.50 Plan of Care Name Dates Details Planned Observations Planned Goals not documented Planned Encounters Appointment; TAY SHAH M.D. On: 26-Sep-2019 12:30 Appointment; TAY SHAH M.D. On: 14-Feb-2020 10:00 Interventions Provided Discussion/Summary* Your labs are good except for slight anemia. We will monitor this for you. See you as scheduled. Instructions Name Dates Details Instructions not documented [...]
--- OUTSIDE RECORDS SUMMARY | 2019-10-10 10:34 | XMS REPORT | Summary of Care ---
Author Author Kylie Flynn M.A. Organization Unknown Address [facility] Phone Unavailable Care Team Providers Care Instructional Interventionist Name Role Phone PABLO Ayala, TAY Unavailable Unavailable Kylie Flynn M.A. Unavailable Unavailable ALLYSSA STARK, TE Sullivan Unavailable Unavailable MARGARITA LOVE [place], ESTHER Unavailable Unavailable PABLO STARK [place], TAY Malloy Unavailable Unavailable YONAS STARK, LASHA [...] T4, TOTAL (THYROXINE) Date: 06-Aug-2019 PET Dementia 65380 Date: 08-Aug-2019 History of Hernia Repair Completed [...] smoker Vital Signs Date Test Result Details 05-[id number]:21 BP Systolic 138 mm[Hg] Status: Comments: Location: [...] /min Status: Results Date Description Value Details 94-Tkg-88870:[address] Dementia [address] Dementia SEE NOTES Comments: EXAM: Brain FDG PET/CTDATE: 08/29/2019 8:04 CSTINDICATION: F03.90-DementiaCOMPARISON: NoneTECHNIQUE: Approximately 30 minutes after IV injection of 10.78 mCi FDG, brainPET/CT imaging was obtained. The PET images were compared to the normal braindatabase from the [employer].FINDINGS:There is decreased metabolism in the right parietal [...] temporal lobes.--This report was dictated by a Jordan Worker/Fellow/Physician Infection Prevention Coordinator. Ihave personallyreviewed the images as well as the interpretation and agree with the findings.Read by: Елена Gibbs MD Resident/Fellow/PhysicianAssistant: Елеан Gibbs MDDictated Date/time: 08/29/19 10:25Electronically Signed by: Shanti Dietrich MD 08/29/2012:02FINAL REPORT [id number]:30 MRI Brain wo contrast 78306 Brain wo contrast MRI SEE NOTES Comments: [...] ischemic changes--This report was dictated by a Jordan Worker/Fellow/Physician Infection Prevention Coordinator. Evan personallyreviewed the images as well as [...] LDL-C. Billy SS et al. KALYAN. 2013;310(19): 4680-2704 (http:/ /education.[employer].com/faq/AGO566) CHOL/HDLC RATIO 2.3 {CALC} (Normal) Range: <5.0 [...] is approximately 13% higher for peopleidentified as -Iraqi. eGFR NON- 69 {ML/MIN/1.7} (Normal) Range: > [...] ALT 10 u/l (Normal) Range: 6-29 :55 [[facility]] URINALYSIS, COMPLETE COLOR YELLOW (Normal) Range: YELLOW [...] SEEN {/LPF} (Normal) Range: NONE SEEN :55 [[facility]] CBC (INCLUDES DIFF/PLT) WHITE BLOOD CELL COUNT [...] 7.5-12.5 ABSOLUTE NEUTROPHILS 2280 {cells/uL} (Normal) Range: 4404-7683 ABSOLUTE LYMPHOCYTES 1419 {cells/uL} (Normal) Range: 850-3900 ABSOLUTE MONOCYTES 303 {cells/uL} (Normal) Range: 200-950 ABSOLUTE EOSINOPHILS 70 {cells/uL} (Normal) Range: 15-500 ABSOLUTE BASOPHILS 29 {cells/uL} (Normal) Range: 0-200 NEUTROPHILS 55.6 % (Normal) LYMPHOCYTES 34.6 % (Normal) MONOCYTES 7.4 % (Normal) EOSINOPHILS 1.7 % (Normal) BASOPHILS 0.7 % (Normal) :55 [[facility]] T4, FREE T4, FREE 1.1 ng/dl (Normal) Range: 0.8-1.8 :55 [[facility]] TSH, 3RD GENERATION Comments: REPORT COMMENT:FASTING:YES TSH [...]
--- OUTSIDE RECORDS SUMMARY | 2019-10-10 10:34 | XMS REPORT | Summary of Care ---
Author Author Chen Pittman M.A. Unknown Address Unknown Phone Unavailable Care Team Providers Care Forest Fire Officer Name Role Phone TAY SHAH M.D. Unavailable Unavailable Chen Pittman M.A. Unavailable Unavailable ALLYSSA STARK, TE Sullivan Unavailable Unavailable MARGARITA LOVE [place], ESTHER Unavailable Unavailable PABLO STARK [place], TAY Malloy Unavailable Unavailable YONAS STARK, LASHA Lane Unavailable Unavailable ANNA HERZOG [place], ANTONIO Lane Unavailable Unavailable Unavailable Unavailable [...] Oral Tablet qd * Quantity: 90 Refills: Bry SHAH M.D. TAY * Start : 06-Aug-2019 Active Allergies [...] T4, TOTAL (THYROXINE) Date: 06-Aug-2019 PET Dementia 42421 Date: 08-Aug-2019 History of Hernia Repair Completed [...] to report Results Date Description Value Details 06-Yoc-95771:[address] Dementia [address] Dementia SEE NOTES Comments: EXAM: Brain FDG PET/CTDATE: 08/29/2019 8:04 CSTINDICATION: F03.90-DementiaCOMPARISON: NoneTECHNIQUE: Approximately 30 minutes after IV injection of 10.78 mCi FDG, brainPET/CT imaging was obtained. The PET images were compared to the normal braindatabase from the [employer].FINDINGS:There is decreased metabolism in the right parietal [...] temporal lobes.--This report was dictated by a Manager Provider Relations/Fellow/Physician Medical Payment Poster. Ihave personallyreviewed the images as well as the interpretation and agree with the findings.Read by: Елена Gibbs MD Resident/Fellow/PhysicianAssistant: Елена Gibbs MDDictated Date/time: 08/29/19 10:25Electronically Signed by: Shanti Dietrich MD 08/29/2012:02FINAL REPORT [id number]:30 MRI Brain wo contrast 75203 Brain wo contrast MRI SEE NOTES Comments: [...] ischemic changes--This report was dictated by a Manager Provider Relations/Fellow/Physician Medical Payment Poster. Ihave personallyreviewed the images as well as the interpretation and agree with the findings.Read by: Jean-Pierre Toussaint MD Resident/Fellow/PhysicianAssistant: Jean-Pierre Toussaint MDDictated Date/time: 08/29/19 09:51Electronically Signed by: John Dimitridominga Mahmood 08/29/2009:54FINAL REPORT :55 [] LIPID PANEL WITH [...] LDL-C. Billy ACEVEDO et al. KALYAN. 2013;310(19): 3832-6034 (http:/ /education.[employer] Fish/faq/ZXN927) CHOL/HDLC RATIO 2.3 {CALC} (Normal) Range: <5.0 NON HDL CHOLESTEROL 92 {MG/DL__CAL} (Normal) Range: <130 Comments: For patients with diabetes plus 1 major ASCVD risk factor, treating to a non-HDL-C goal of <100 mg/dL (LDL-C of <70 mg/dL) is considered a therapeutic option. :55 [facility]] CMP W/EGFR GLUCOSE 92 mg/dl (Normal) Range: 65-99 Comments: Fasting reference interval UREA NITROGEN (BUN) 19 mg/dl (Normal) Range: 7-25 CREATININE 0.79 mg/dl (Normal) Range: 0.60-0.88 Comments: For patients >49 years of age, the reference limitfor Creatinine is approximately 13% higher for peopleidentified as -Azerbaijani. eGFR NON- 69 {ML/MIN/1.7} (Normal) Range: > [...] ALT 10 u/l (Normal) Range: 6-29 :55 [facility]] URINALYSIS, COMPLETE COLOR YELLOW (Normal) Range: [...] SEEN {/LPF} (Normal) Range: NONE SEEN :55 [[facility]] CBC (INCLUDES DIFF/PLT) WHITE BLOOD CELL COUNT [...] 7.5-12.5 ABSOLUTE NEUTROPHILS 2280 {cells/uL} (Normal) Range: 2060-5449 ABSOLUTE LYMPHOCYTES 1419 {cells/uL} (Normal) Range: 850-3900 ABSOLUTE MONOCYTES 303 {cells/uL} (Normal) Range: 200-950 ABSOLUTE EOSINOPHILS 70 {cells/uL} (Normal) Range: 15-500 ABSOLUTE BASOPHILS 29 {cells/uL} (Normal) Range: 0-200 NEUTROPHILS 55.6 % (Normal) LYMPHOCYTES 34.6 % (Normal) MONOCYTES 7.4 % (Normal) EOSINOPHILS 1.7 % (Normal) BASOPHILS 0.7 % (Normal) :55 [facility]] T4, FREE T4, FREE 1.1 ng/dl (Normal) Range: 0.8-1.8 :55 [[facility]] TSH, 3RD GENERATION Comments: REPORT COMMENT:FASTING:YES TSH 5.63 {MIU/L} (Above high threshold) Range: 0.40-4.50 Plan of Care Name Dates Details Planned Observations Planned Goals not documented Planned Encounters Appointment; TAY SHAH M.D. On: 26-Sep-2019 12:30 Appointment; TAY SAHH M.D. On: 14-Feb-2020 10:00 Instructions Name Dates Details Instructions not documented Encounters Appointment; TE SPIVEY M.D. Encounter Diagnosis: Problem not documented On: 27-Aug-2018 13:15 Appointment; ESTHER AVILA Encounter Diagnosis: Problem not documented On: 21-Sep-2018 13:00 Appointment; TE SPIVEY M.D. Encounter Diagnosis: Problem not documented On: 21-Sep-2018 13:30 Appointment; SPIVEY, TE, M.D. Encounter Diagnosis: Problem not documented On: 24-Sep-2018 15:00 Appointment; ESTHER AVILA Encounter Diagnosis: Problem not documented On: 20-Nov-2018 15:30 Appointment; TAY SHAH M.D. Encounter Diagnosis: Problem not documented On: 03-Jul-2019 9:00 Appointment; ALSHA BRANHAM M.D. Encounter Diagnosis: Problem not documented On: 06-Aug-2019 15:30 Appointment; TAY SHAH M.D. Encounter Diagnosis: Problem not documented On: 16-Aug-2019 11:00
--- OUTSIDE RECORDS SUMMARY | 2019-10-10 10:34 | XMS REPORT | Summary of Care ---
Author Author Jonnie Rodriguez, Viki Organization Unknown Address [facility] Phone Unavailable Care Team Providers Care Pipelines Supervisor Name Role Phone PABLO Ayala, TAY Unavailable Unavailable Jonnie Rodriguez, Viki Unavailable Unavailable ALLYSSA STARK, TE Sullivan Unavailable Unavailable MARGARITA LOVE [place], ESTHER Unavailable Unavailable PABLO STARK DE, TAY Malloy Unavailable Unavailable YONAS STARK, LASHA [...] T4, TOTAL (THYROXINE) Date: 06-Aug-2019 PET Dementia 18889 Date: 08-Aug-2019 History of Hernia Repair Completed [...] smoker Vital Signs Date Test Result Details 66-Row-[id number]:21 BP Systolic 138 mm[Hg] Status: Comments: Location: [...] /min Status: Results Date Description Value Details 23-Vdf-62788:[address] Dementia [address] Dementia SEE NOTES Comments: EXAM: Brain FDG PET/CTDATE: 08/29/2019 8:04 CSTINDICATION: F03.90-DementiaCOMPARISON: NoneTECHNIQUE: Approximately 30 minutes after IV injection of 10.78 mCi FDG, brainPET/CT imaging was obtained. The PET images were compared to the normal braindatabase from the [employer].FINDINGS:There is decreased metabolism in the right parietal [...] temporal lobes.--This report was dictated by a Tax Advisor/Fellow/Physician Movie Critic. Ihave personallyreviewed the images as well as the interpretation and agree with the findings.Read by: Елена Gibbs MD Resident/Fellow/PhysicianAssistant: Елена Gibbs MDDictated Date/time: 08/29/19 10:25Electronically Signed by: Shanti Dietrich MD 08/29/2012:02FINAL REPORT [id number]:30 MRI Brain wo contrast 33048 Brain wo contrast MRI SEE NOTES Comments: [...] ischemic changes--This report was dictated by a Tax Advisor/Fellow/Physician Movie Critic. Evan personallyreviewed the images as well as the interpretation and agree with the findings.Read by: Jean-Pierre Toussaint MD Resident/Fellow/PhysicianAssistant: Jean-Pierre Toussaint MDDictated Date/time: 08/29/19 09:51Electronically Signed by: Dimitri Lopez 08/29/2009:54FINAL REPORT Plan of Care Name Dates Details Planned Observations Planned Goals not documented Planned Encounters Appointment; TAY SHAH M.D. On: 14-Feb-2020 10:00 Interventions Provided Discussion/Summary* Guideline Used: * Other: Iens STARK telephone service representative * Benita RN form [facility] in [place] calls to request we page Dr. Null. * Pt is in ER room 7 and they need to report Pt is confused * [place] text to Dr. Null * Intended Caller Action: * Other: Ines STARK telephone service representative Instructions Name Dates Details Instructions not documented [...] not documented On: 03-Jul-2019 9:00 Appointment; LASHA BARNHAM M.D. Encounter Diagnosis: Problem not documented On: 06-Aug-2019 15:30 Appointment; TAY SHAH M.D. Encounter Diagnosis: Problem not documented On: 16-Aug-2019 11:00
--- OUTSIDE RECORDS SUMMARY | 2019-10-10 10:34 | XMS REPORT | Summary of Care ---
Author Author TAY SHAH M.D. Unknown Address Unknown Phone Unavailable Care Team Providers Care Journalism Intern Name Role Phone TAY SHAH M.D. Unavailable Unavailable ALLYSSA STARK, TE Sullivan Unavailable Unavailable MARGARITA LOVE [place], ESTHER Unavailable Unavailable PABLO STARK [place], TAY Malloy Unavailable Unavailable LASHA BRANHAM MD [...] T4, TOTAL (THYROXINE) Date: 06-Aug-2019 PET Dementia 46573 Date: 08-Aug-2019 History of Hernia Repair Completed [...] smoker Vital Signs Date Test Result Details 96-Oov-226784:21 BP Systolic 138 mm[Hg] Status: Comments: Location: [...] /min Status: Results Date Description Value Details 50-Nvi-10824:[address] Dementia [address] Dementia SEE NOTES Comments: EXAM: Brain FDG PET/CTDATE: 08/29/2019 8:04 CSTINDICATION: F03.90-DementiaCOMPARISON: NoneTECHNIQUE: Approximately 30 minutes after IV injection of 10.78 mCi FDG, brainPET/CT imaging was obtained. The PET images were compared to the normal braindatabase from the [employer].FINDINGS:There is decreased metabolism in the right parietal [...] temporal lobes.--This report was dictated by a Fixture Designer/Fellow/Physician Website Project Manager. Ihave personallyreviewed the images as well as the interpretation and agree with the findings.Read by: Елена Gibbs MD Resident/Fellow/PhysicianAssistant: Елена Gibbs MDDictated Date/time: 08/29/19 10:25Electronically Signed by: Shanti Dietrich MD 08/29/2012:02FINAL REPORT [id number]:30 MRI Brain wo contrast 22170 Brain wo contrast MRI SEE NOTES Comments: [...] ischemic changes--This report was dictated by a Fixture Designer/Fellow/Physician Website Project Manager. Evan personallyreviewed the images as well as the interpretation and agree with the findings.Read by: Jean-Pierre Toussaint MD Resident/Fellow/PhysicianAssistant: Jean-Pierre Toussaint MDDictated Date/time: 08/29/19 09:51Electronically Signed by: Dimitri Lopez 08/29/2009:54FINAL REPORT :55 [[facility]] LIPID PANEL WITH REFLEX TO DIRECT [...] LDL-C. Billy SS et al. KALYAN. 2013;310(19): 3223-2874 (http:/ /education.[employer]/faq/DDC819) CHOL/HDLC RATIO 2.3 {CALC} (Normal) Range: <5.0 [...] is approximately 13% higher for peopleidentified as -Gambian. eGFR NON- 69 {ML/MIN/1.7} (Normal) Range: > [...] 10-35 ALT 10 u/l (Normal) Range: 6-29 07-Sep-20198:55 [[facility]] URINALYSIS, COMPLETE COLOR YELLOW (Normal) Range: [...] SEEN {/LPF} (Normal) Range: NONE SEEN :55 [[facility]] CBC (INCLUDES DIFF/PLT) WHITE BLOOD CELL COUNT [...] 7.5-12.5 ABSOLUTE NEUTROPHILS 2280 {cells/uL} (Normal) Range: 0607-7662 ABSOLUTE LYMPHOCYTES 1419 {cells/uL} (Normal) Range: 850-3900 ABSOLUTE MONOCYTES 303 {cells/uL} (Normal) Range: 200-950 ABSOLUTE EOSINOPHILS 70 {cells/uL} (Normal) Range: 15-500 ABSOLUTE BASOPHILS 29 {cells/uL} (Normal) Range: 0-200 NEUTROPHILS 55.6 % (Normal) LYMPHOCYTES 34.6 % (Normal) MONOCYTES 7.4 % (Normal) EOSINOPHILS 1.7 % (Normal) BASOPHILS 0.7 % (Normal) :55 [[facility]] T4, FREE T4, FREE 1.1 ng/dl (Normal) Range: 0.8-1.8 :55 [[facility]] TSH, 3RD GENERATION Comments: REPORT COMMENT:FASTING:YES TSH 5.63 {MIU/L} (Above high threshold) Range: 0.40-4.50 Plan of Care Name Dates Details Planned Observations Planned Goals not documented Planned Encounters Appointment; [facility] On: 03-Oct-2019 8:00 Appointment; TAY SHAH M.D. On: 14-Feb-2020 10:00 [...]
--- OUTSIDE RECORDS SUMMARY | 2019-10-10 10:35 | XMS REPORT | Summary of Care ---
Author Author LASHA BRANHAM M.D. Unknown Address [facility] Phone Unavailable Care Team Providers Care Thimble Press Operator Name Role Phone YONAS Ayala, LASHA Unavailable Unavailable PABLO Ayala, TAY Unavailable Unavailable ALLYSSA STARK, TE Sullivan Unavailable Unavailable MARGARITA LOVE [place], ESTHER Unavailable Unavailable PABLO STARK MD, TAY Malloy Unavailable Unavailable LASHA BRANHAM MD Unavailable Unavailable ANNA HERZOG [place], ANTONIO Lane [...] Status: Active Depression (311, F32.9) Status: Active GERD without esophagitis (530.81, K21.9) Status: Active Hospital discharge follow-up (V67.59, Z09) Status: Active Acute UTI (599.0, N39.0) Status: Active Dementia (294.20, F03.90) Status: Active Memory loss (780.93, R41.3) Status: Active Mild dementia (294.20, F03.90) Status: Active 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 * Start : 03-Jul-2019 Active Symbicort 160-4.5 MCG/ACT Inhalation Aerosol * Refills: 0 * Start : 06-Aug-2019 Active 6 GM Inhaler Mirtazapine 7.5 MG Oral Tablet qd * Quantity: 90 Refills: 2 TAY SHAH M.D. * Start : 06-Aug-2019 Active Donepezil HCl - 10 MG Oral Tablet TAKE 1 TABLET DAILY * Quantity: 30 Refills: 5 LASHA BRANHAM M.D. * Start : 09-Oct-2019 Active Allergies and Adverse Reactions Name Dates [...] Details - Status: Name Dates Details Never smoked tobacco (finding) Vital Signs Date Test Result Details 7-Byx-540231:10 Systolic blood pressure 136 mm[Hg] Status: Comments: Location: LUE; Position: Sitting Diastolic blood pressure 64 mm[Hg] Status: Comments: Location: LUE; Position: Sitting Body height 57 in Status: Weight 114 lb Status: Body mass index (BMI) [Ratio] 24.67 kg/m2 Status: Body surface area Derived from formula 1.42 m2 Status: Heart Rate 52 /min Status: 71-Cdp-545314:12 Systolic blood pressure 133 mm[Hg] Status: Comments: Location: LUE; Position: Sitting Diastolic blood pressure 56 mm[Hg] Status: Comments: Location: LUE; Position: Sitting Body height 57 in Status: Weight 111 lb Status: Body mass index (BMI) [Ratio] 24.02 kg/m2 Status: Body surface area Derived from formula 1.4 m2 Status: Heart Rate 53 /min Status: Body temperature 96.4 f Status: Comments: Method: Temporal Results Date Description Value Details Results not documented Plan of Care Name Dates Details Planned Observations Planned Goals not documented Planned Encounters Appointment; TAY SHAH M.D. On: 14-Feb-2020 10:00 Appointment; LASHA BRANHAM M.D. On: 07-Apr-2020 13:00 Interventions Provided Medication Changes* Donepezil HCl - 10 MG Oral Tablet - Start Discussion/Summary* Ms. Stokes is an 83-year-old woman referred for neurological evaluation of memory impairment. Medical history obtained from the patient and 3 family members indicated that the patient has symptoms of mild amnestic dementia. Neurological examination is also consistent with an impaired recent memory. I suspect that the patient has a neurodegenerative disease as well as some cerebrovascular disease. She has had only limited evaluation of this problem. A recent MRI at an outside facility was reported to show a microangiopathy and "senescent changes". I have recommended obtaining a high- resolution MRI, dementia PET scan, neuropsychological evaluation, EEG, and battery of "memory" blood tests. I asked the patient and her family to return after obtaining these tests to discuss the results and to consider a possible diagnosis and therapeutic options. * 10/09/2019: RV 6 months. Instructions Name Dates Details Instructions not documented [...] Diagnosis: Problem not documented On: 16-Aug-2019 11:00 Appointment; TAY SHAH M.D. Encounter Diagnosis: Problem not documented On: 26-Sep-2019 12:30 Appointment; ANTONIO CASTILLO, PHD Encounter Diagnosis: Problem not documented On: 27-Sep-2019 8:30 Appointment; LASHA BRANHAM M.D. Encounter Diagnosis: Problem not documented On: 09-Oct-2019 13:00
--- OUTSIDE RECORDS SUMMARY | 2019-10-10 10:35 | XMS REPORT | Summary of Care ---
Author Author Kannan Rock M.A. Unknown Address [facility] Phone Unavailable Care Team Providers Care Floor Tiling Professional Name Role Phone PABLO Ayala, TAY Unavailable Unavailable ALLYSSA STARK, TE Sullivan Unavailable Unavailable MARGARITA LOVE [place], ESTHER Unavailable Unavailable PABLO STARK [place], TAY Malloy Unavailable Unavailable LASHA BRANHAM MD [...] Active Mild dementia (294.20, F03.90) Status: Active GERD without esophagitis (530.81, K21.9) Status: Active Medications Name Dates Details Pantoprazole Sodium 40 MG Oral Tablet Delayed Release TAKE 1 TABLET DAILY Quantity: 90 TAY SHAH M.D. Active Tamsulosin HCl CAPS * Refills: 0 Active Levothyroxine Sodium 25 MCG Oral Tablet TAKE 1 TABLET DAILY DIRECTED * Quantity: 90 Refills: 2 TAY SHAH M.D. Active hydroCHLOROthiazide 12.5 MG Oral Tablet TAKE [...] Tablet qd * Quantity: 90 Refills: 2 ATY SHAH M.D. Start : 06-Aug-2019 Active Allergies and Adverse [...] T4, TOTAL (THYROXINE) Date: 06-Aug-2019 PET Dementia 97079 Date: 08-Aug-2019 History of Hernia Repair Completed [...] smoker Vital Signs Date Test Result Details 89-[id number]:12 BP Systolic 133 mm[Hg] Status: Comments: Location: LUE; Position: Sitting BP Diastolic 56 mm[Hg] Status: Comments: Location: LUE; Position: Sitting Height 57 in Status: Weight 111 lb Status: Body Mass Index Calculated 24.02 kg/m2 Status: Body Surface Area Calculated 1.4 m2 Status: Temperature 96.4 f Status: Comments: Method: Temporal Heart Rate 53 /min Status: Comments: Quality: Normal Results Date Description Value Details 71-Cic-90801:[address] Dementia [address] Dementia SEE NOTES Comments: EXAM: Brain FDG PET/CTDATE: 08/29/2019 8:04 CSTINDICATION: F03.90-DementiaCOMPARISON: NoneTECHNIQUE: Approximately 30 minutes after IV injection of 10.78 mCi FDG, brainPET/CT imaging was obtained. The PET images were compared to the normal braindatabase from the [employer].FINDINGS:There is decreased metabolism in the right parietal [...] temporal lobes.--This report was dictated by a Acetylene Cylinder Packing Mixer/Fellow/Physician Director Of Speech Pathology. Ihave personallyreviewed the images as well as the interpretation and agree with the findings.Read by: Елена Gibbs MD Resident/Fellow/PhysicianAssistant: Елена Gibbs MDDictated Date/time: 08/29/19 10:25Electronically Signed by: Shanti Dietrihc MD 08/29/2012:02FINAL REPORT [id number]:30 MRI Brain wo contrast 38139 Brain wo contrast MRI SEE NOTES Comments: [...] ischemic changes--This report was dictated by a Acetylene Cylinder Packing Mixer/Fellow/Physician Director Of Speech Pathology. Ihave personallyreviewed the images as well as [...] LDL-C. Billy ACEVEDO et al. KALYAN. 2013;310(19): 0531-0313 (http:/ /education.[employer].com/faq/UWO502) CHOL/HDLC RATIO 2.3 {CALC} (Normal) Range: <5.0 [...] is approximately 13% higher for peopleidentified as -Swiss. eGFR NON- 69 {ML/MIN/1.7} (Normal) Range: > [...] ALT 10 u/l (Normal) Range: 6-29 07-Sep-20198:55 [[facility]] URINALYSIS, COMPLETE COLOR YELLOW (Normal) Range: YELLOW [...] NONE SEEN {/LPF} (Normal) Range: NONE SEEN -:55 [[facility]] CBC (INCLUDES DIFF/PLT) WHITE BLOOD CELL [...] 7.5-12.5 ABSOLUTE NEUTROPHILS 2280 {cells/uL} (Normal) Range: 1932-7641 ABSOLUTE LYMPHOCYTES 1419 {cells/uL} (Normal) Range: 850-3900 ABSOLUTE MONOCYTES 303 {cells/uL} (Normal) Range: 200-950 ABSOLUTE EOSINOPHILS 70 {cells/uL} (Normal) Range: 15-500 ABSOLUTE BASOPHILS 29 {cells/uL} (Normal) Range: 0-200 NEUTROPHILS 55.6 % (Normal) LYMPHOCYTES 34.6 % (Normal) MONOCYTES 7.4 % (Normal) EOSINOPHILS 1.7 % (Normal) BASOPHILS 0.7 % (Normal) -:55 [[facility]] T4, FREE T4, FREE 1.1 ng/dl (Normal) Range: 0.8-1.8 :55 [[facility]] TSH, 3RD GENERATION Comments: REPORT COMMENT:FASTING:YES TSH 5.63 {MIU/L} (Above high threshold) Range: 0.40-4.50 Plan of Care Name Dates Details Planned Observations Planned Goals not documented Planned Encounters Appointment; ANTONIO CASTILLO, PHD On: 27-Sep-2019 8:30 Appointment; TAY SHAH M.D. On: 14-Feb-2020 10:00 Interventions Provided Medication Changes* Levothyroxine Sodium 25 MCG Oral Tablet - Renew * Mirtazapine 7.5 MG Oral Tablet - Renew * Pantoprazole Sodium 40 MG Oral Tablet Delayed Release - Renew Instructions Name Dates Details Instructions not documented [...]
--- OUTSIDE RECORDS SUMMARY | 2019-10-10 10:35 | XMS REPORT | Summary of Care ---
Author Author PABLO Ayala, TAY Villagran Unknown Address Unknown Phone Unavailable Care Team Providers Care Water Commissioner Name Role Phone TAY SHAH M.D. Unavailable Unavailable ALLYSSA STARK, TE Sullivan Unavailable Unavailable MARGARITA LOVE [place], ESTHER Unavailable Unavailable PABLO STARK [place], TAY Malloy Unavailable Unavailable LASHA BRANHAM MD [...] T4, TOTAL (THYROXINE) Date: 06-Aug-2019 PET Dementia 87875 Date: 08-Aug-2019 History of Hernia Repair Completed [...] to report Results Date Description Value Details [id number] Dementia [address] Dementia SEE NOTES Comments: EXAM: Brain FDG PET/CTDATE: 08/29/2019 8:04 CSTINDICATION: F03.90-DementiaCOMPARISON: NoneTECHNIQUE: Approximately 30 minutes after IV injection of 10.78 mCi FDG, brainPET/CT imaging was obtained. The PET images were compared to the normal braindatabase from the [employer].FINDINGS:There is decreased metabolism in the right parietal [...] temporal lobes.--This report was dictated by a Parts Fabricator/Fellow/Physician Environmental Health Inspector. Ihave personallyreviewed the images as well as the interpretation and agree with the findings.Read by: Елена Gibbs MD Resident/Fellow/PhysicianAssistant: Елена Gibbs MDDictated Date/time: 08/29/19 10:25Electronically Signed by: Shanti Dietrich MD 08/29/2012:02FINAL REPORT [id number] MRI Brain wo contrast 73075 Brain wo contrast MRI SEE NOTES Comments: [...] ischemic changes--This report was dictated by a Parts Fabricator/Fellow/Physician Environmental Health Inspector. Ihave personallyreviewed the images as well as the interpretation and agree with the findings.Read by: Jean-Pierre Toussaint MD Resident/Fellow/PhysicianAssistant: Jean-Pierre Toussaint MDDictated Date/time: 08/29/19 09:51Electronically Signed by: John Dimitridee Mahmood 08/29/2009:54FINAL REPORT :55 [Q] LIPID PANEL WITH [...] LDL-C. Billy SS et al. KALYAN. 2013;310(19): 6014-0932 (http:/ /education.[employer]faq/QWG458) CHOL/HDLC RATIO 2.3 {CALC} (Normal) Range: <5.0 [...] is approximately 13% higher for peopleidentified as -Mongolian. eGFR NON- 69 {ML/MIN/1.7} (Normal) Range: > [...] ALT 10 u/l (Normal) Range: 6-29 :55 [[facility]] URINALYSIS, COMPLETE COLOR YELLOW (Normal) Range: YELLOW [...] 7.5-12.5 ABSOLUTE NEUTROPHILS 2280 {cells/uL} (Normal) Range: 1734-6279 ABSOLUTE LYMPHOCYTES 1419 {cells/uL} (Normal) Range: 850-3900 ABSOLUTE MONOCYTES 303 {cells/uL} (Normal) Range: 200-950 ABSOLUTE EOSINOPHILS 70 {cells/uL} (Normal) Range: 15-500 ABSOLUTE BASOPHILS 29 {cells/uL} (Normal) Range: 0-200 NEUTROPHILS 55.6 % (Normal) LYMPHOCYTES 34.6 % (Normal) MONOCYTES 7.4 % (Normal) EOSINOPHILS 1.7 % (Normal) BASOPHILS 0.7 % (Normal) :55 [[facility]] T4, FREE T4, FREE 1.1 ng/dl (Normal) Range: 0.8-1.8 :55 [[facility]] TSH, 3RD GENERATION Comments: REPORT COMMENT:FASTING:YES TSH [...]
--- OUTSIDE RECORDS SUMMARY | 2019-10-10 10:35 | XMS REPORT | Summary of Care ---
Author Author PABLO Ayala, TAY Villagran Unknown Address Unknown Phone Unavailable Care Team Providers Care Counter Former Name Role Phone TAY SHAH M.D. Unavailable Unavailable ALLYSSA STARK, TE Sullivan Unavailable Unavailable MARGARITA LOVE [place], ESTHER Unavailable Unavailable PABLO STARK [place], TAY Malloy Unavailable Unavailable LASHA BRANHAM MD [...] GERD without esophagitis (530.81, K21.9) Status: Active Mild dementia (294.20, F03.90) Status: Active Hospital discharge follow-up (V67.59, Z09) Status: Active Acute UTI (599.0, N39.0) Status: Active Medications Name Dates Details Pantoprazole [...] DAILY * Quantity: 90 Refills: 2 PABLO Ayala, TAY * Start : 03-Jul-2019 Active Symbicort 160-4.5 MCG/ACT Inhalation Aerosol * Refills: 0 * Start : 06-Aug-2019 Active 6 GM Inhaler Mirtazapine 7.5 MG Oral Tablet qd * Quantity: 90 Refills: 2 PABLO Ayala TAY * Start : 06-Aug-2019 [...] GENERATION Date: 06-Aug-2019 [[facility]] RPR Date: 06-Aug-2019 [QL] SED RATE BY MODIFIED WESTERGREN Date: 06-Aug-2019 [L] Folate, RBC and Serum Date: 06-Aug-2019 [[facility]] VITAMIN B12 Date: 06-Aug-2019 [QLH] T4, TOTAL (THYROXINE) Date: 06-Aug-2019 PET Dementia 43459 Date: 08-Aug-2019 History of Hernia Repair Completed [...] smoker Vital Signs Date Test Result Details [id number] BP Systolic 133 mm[Hg] Status: Comments: Location: LUE; Position: Sitting BP Diastolic 56 mm[Hg] Status: Comments: Location: LUE; Position: Sitting Height 57 in Status: Weight 111 lb Status: Body Mass Index Calculated 24.02 kg/m2 Status: Body Surface Area Calculated 1.4 m2 Status: Temperature 96.4 f Status: Comments: Method: Temporal Heart Rate 53 /min Status: Comments: Quality: Normal Results Date Description Value Details [id number]:[address] Dementia [address] Dementia SEE NOTES Comments: EXAM: Brain FDG PET/CTDATE: 08/29/2019 8:04 CSTINDICATION: F03.90-DementiaCOMPARISON: NoneTECHNIQUE: Approximately 30 minutes after IV injection of 10.78 mCi FDG, brainPET/CT imaging was obtained. The PET images were compared to the normal braindatabase from the [facility].FINDINGS:There is decreased metabolism in the right parietal [...] temporal lobes.--This report was dictated by a Audio/Visual Manager/Fellow/Physician Cryptologic Supervisor. Ihave personallyreviewed the images as well as the interpretation and agree with the findings.Read by: Елена Gibbs MD Resident/Fellow/PhysicianAssistant: Елена Gibbs MDDictated Date/time: 08/29/19 10:25Electronically Signed by: Shanti Dietrich MD 08/29/2012:02FINAL REPORT [id number] MRI Brain wo contrast 36131 Brain wo contrast MRI SEE NOTES Comments: [...] ischemic changes--This report was dictated by a Audio/Visual Manager/Fellow/Physician Cryptologic Supervisor. Galdinoave personallyreviewed the images as well as the [...] LDL-C. Billy ACEVEDO et al. KALYAN. 2013;310(19): 4915-0775 (http:/ /education.[employer]/faq/KTN835) CHOL/HDLC RATIO 2.3 {CALC} (Normal) Range: <5.0 [...] is approximately 13% higher for peopleidentified as -Turkmen. eGFR NON- 69 {ML/MIN/1.7} (Normal) Range: > [...] ALT 10 u/l (Normal) Range: 6-29 07-Sep-20198:55 [[facility]] URINALYSIS, COMPLETE COLOR YELLOW (Normal) Range: [...] 7.5-12.5 ABSOLUTE NEUTROPHILS 2280 {cells/uL} (Normal) Range: 9868-5039 ABSOLUTE LYMPHOCYTES 1419 {cells/uL} (Normal) Range: 850-3900 ABSOLUTE MONOCYTES 303 {cells/uL} (Normal) Range: 200-950 ABSOLUTE EOSINOPHILS 70 {cells/uL} (Normal) Range: 15-500 ABSOLUTE BASOPHILS 29 {cells/uL} (Normal) Range: 0-200 NEUTROPHILS 55.6 % (Normal) LYMPHOCYTES 34.6 % (Normal) MONOCYTES 7.4 % (Normal) EOSINOPHILS 1.7 % (Normal) BASOPHILS 0.7 % (Normal) :55 [[facility]] T4, FREE T4, FREE 1.1 ng/dl (Normal) Range: 0.8-1.8 :55 [QL] TSH, 3RD GENERATION Comments: REPORT COMMENT:FASTING:YES TSH [...] MG Oral Tablet Delayed Release - Renew Plan* discussed signs and sxs of UTI in the elderly with family * f/u prn with me Instructions Name Dates Details Instructions not documented [...]
--- NOTE | 2019-10-10 11:21 | NUR ---
urine and urine cx sent across the street to the lab
[2019-10-10] MEDS ORDERED: MACROBID 100 M100 MG PEG (11:26)
[2019-10-10 11:40] VITALS: BP 162/72
[2019-10-10 12:04] LABS: BILIRUBIN,URINE NEGATIVE (NEGATIVE); CLARITY,URINE CLEAR (CLEAR); COLOR,URINE YELLOW (YELLOW); KETONES,URINE NEGATIVE (NEGATIVE); LEUKOCYTE ESTERASE ,URINE SMALL (NEGATIVE); NITRITE,URINE NEGATIVE (NEGATIVE); PROTEIN,URINE DIPSTICK 1+ (NEGATIVE); URINE UROBILINOGEN 0.2 mg/dL (0.2 - 1)
[2019-10-10 12:17] LABS: BACTERIA,URINE RARE /HPF; EPITHELIAL CELLS,URINE FEW /LPF
== END 2019-10-10 11:40 | disposition home or self-care (01) ==
LOC: FSED 10:29
DX: R30.0 Dysuria (principal); N30.00 Acute cystitis without hematuria; F03.90 Unspecified dementia, unspecified severity, without behavioral disturbance, psychotic disturbance, mood disturbance, and anxiety; I10 Essential (primary) hypertension; E03.9 Hypothyroidism, unspecified; K21.9 Gastro-esophageal reflux disease without esophagitis
CPT/HCPCS: 51701; 81001; 81003; 87086; 99283

== ENCOUNTER 2019-10-14 11:11 | Emergency (ER) | payer MEDICARE ==
[~2019-10-14] VITALS: Ht 149.9 cm; Wt 51.7 kg
[~2019-10-14 11:11] MED LIST changes: +MACROBID 100 M100 MG PEG
--- OUTSIDE RECORDS SUMMARY | 2019-10-14 11:15 | XMS REPORT | Summary of Care ---
Author Author PABLO Ayala, TAY Villagran Unknown Address Unknown Phone Unavailable Care Team Providers Care Entry Level Manufacturing Engineer Name Role Phone YONAS Ayala, LASHA Unavailable Unavailable PABLO Ayala, TAY Unavailable Unavailable TE SPIVEY MD Unavailable Unavailable MARGARITA LOVE [place], ESTHER Unavailable Unavailable PABLO STARK [place], TAY Malloy Unavailable Unavailable YONAS STARK, LASHA Lane Unavailable Unavailable ANNA HERZOG [place], ANTONIO Lane Unavailable Unavailable Unavailable Unavailable Functional [...] 2 PABLO M.D., TAY * Start : 27-Nov-2019 Active Losartan Potassium 25 MG Oral Tablet TAKE 1 TABLET DAILY. * Quantity: 90 Refills: 2 TAY SHAH [...] BRANHAM M.D. * Start : 09-Oct-2019 Active Amiodarone HCl - 200 MG Oral Tablet TAKE 1 TABLET DAILY. * Quantity: 90 Refills: 2 TAY SHAH M.D. * Start : 10-Oct-2019 Active Metoprolol Tartrate 25 MG Oral Tablet TAKE 1 TABLET TWICE DAILY. * Quantity: 180 Refills: 2 TAY SHAH M.D. * Start : 10-Oct-2019 Active Keira Aspirin EC Low Dose 81 MG Oral Tablet Delayed Release TAKE 1 TABLET DAILY DIRECTED. * Quantity: 100 Refills: 1 TAY SHAH M.D. * Start : 10-Oct-2019 Active Allergies and Adverse Reactions Name Dates [...] (finding) Vital Signs Date Test Result Details :11 Physical Findings 90 Status: Comments: Rm Score [id number]:10 Systolic blood pressure 136 mm[Hg] Status: Comments: Location: LUE; Position: Sitting Diastolic blood pressure 64 mm[Hg] Status: Comments: Location: LUE; Position: Sitting Body height 57 in Status: Weight 114 lb Status: Body mass index (BMI) [Ratio] 24.67 kg/m2 Status: Body surface area Derived from formula 1.42 m2 Status: Heart Rate 52 /min Status: [id number]:12 Systolic blood pressure 133 mm[Hg] Status: Comments: [...] On: 07-Apr-2020 13:00 Interventions Provided Medication Changes* Amiodarone HCl - 200 MG Oral Tablet - Start * Keira Aspirin EC Low Dose 81 MG Oral Tablet Delayed Release - Start * Losartan Potassium 25 MG Oral Tablet - Renew * Metoprolol Tartrate 25 MG Oral Tablet - Start Instructions Name Dates Details Instructions not documented [...]
--- NOTE | 2019-10-14 12:00 | NUR ---
Urine culture collected and sent to the lab for transport to the hospital lab via rig builder helper.
[2019-10-14 12:54] VITALS: BP 171/84
== END 2019-10-14 12:18 | disposition home or self-care (01) ==
LOC: FSED 11:11
DX: R30.0 Dysuria (principal); N30.91 Cystitis, unspecified with hematuria; F03.90 Unspecified dementia, unspecified severity, without behavioral disturbance, psychotic disturbance, mood disturbance, and anxiety; I48.91 Unspecified atrial fibrillation; K21.9 Gastro-esophageal reflux disease without esophagitis; E03.9 Hypothyroidism, unspecified
CPT/HCPCS: 80307; 81003; 87086; 99283

== ENCOUNTER → 2020-04-17 | Day surgery (SDC) | payer MEDICARE, OTHER ==
[2020-04-14 11:24] LABS: BASOPHILS % 0.5 % (0.0-1.0); EOSINOPHILS % 0.7 % (0.0-6.0); HEMATOCRIT 35.9 % (34.2-44.1); HEMOGLOBIN 11.4 g/dL (12.0-16.0); LYMPHOCYTES # (AUTO) 1.2 (1.0-3.2); LYMPHOCYTES % 21.4 % (18.0-39.1); MEAN CORPUSCULAR HEMOGLOBIN 27.4 pg (28-32); MEAN CORPUSCULAR HGB CONC 31.8 g/dL (31-35); MEAN CORPUSCULAR VOLUME 86.3 fL (81-99); MONOCYTES # (AUTO) 0.4 (0.2-0.8); NEUTROPHILS # (AUTO) 3.8 (2.1-6.9); PLATELET COUNT 204 x10e3/uL (140-360); RED BLOOD COUNT 4.16 x10e6/uL (3.6-5.1); RED CELL DISTRIBUTION WIDTH 16.3 % (11.7-14.4)
[2020-04-14 11:40] LABS: ANION GAP 18.1 mmol/L (8-16); CALCIUM 8.7 mg/dL (8.4-10.2); CREATININE, SERUM 1.04 mg/dL (0.57-1.11); POTASSIUM 4.1 mmol/L (3.5-5.1)
--- NOTE | 2020-04-14 12:14 | Diagnostic Imaging Report ---
EXAMINATION: CHEST 2 VIEWS INDICATION: Pre-operative COMPARISON: Chest radiograph 09/09/2019 FINDINGS: LINES/TUBES:None LUNGS:The lungs are hyperinflated. No focal consolidation or pulmonary edema. PLEURA:No pleural effusion or pneumothorax. MEDIASTINUM:The cardiomediastinal silhouette appears normal in size and shape. Atherosclerotic calcifications of the tortuous thoracic aorta. BONES/SOFT TISSUES:No acute osseous injury. Severely exaggerated kyphosis of the lower thoracic spine. ABDOMEN:No free air under the diaphragm. Surgical clips in the left upper quadrant. IMPRESSION: Hyperinflated lungs. No focal pneumonia or pulmonary edema. Signed by: Sanam Nesbitt MD on 04/14/2020 12:11 PM
[~2020-04-17] MED LIST changes: +ACETAMINOPHEN/CODEINE 300MG - 30MG TAB ONE; +ARICEPT5 MG PO; +B&O 60MG R/S 60 MG SUPP PR ONE; +DEXAMETHASONE SOD PHOS INJ 4 MG/ML VIAL ONE; +EPHEDRINE SULFATE INJ 50 MG/ML VIAL ONE; +IOPAMIDOL 300MG/ML 50ML INFUS..BTL IV ONE; +LIDOCAINE HCL 2% LOCAL INJ 5 ML SDV VIAL INJ ONE; +ONDANSETRON HCL INJ 2MG/ML 2ML 2 MG/ML VIAL ONE; +PHENAZOPYRIDIN100 MG PO; +PIPER-TAZ 3.375 GM 50 ML ONE; +PROPOFOL IV EMULSION 10 MG/ML 20 ML VIAL ONE; +SEVOFLURANE INHAL SOLN 250 ML PEN BTL ONE
[2020-04-17 17:15] VITALS: BP 144/71
--- NOTE | 2020-05-08 06:50 | Operative Report ---
DATE OF PROCEDURE: 04/17/2020 SURGEON: Harris Wallace MD PREOPERATIVE DIAGNOSES: 1. Interstitial cystitis. 2. Urethral stenosis. 3. Urinary tract infections. 4. Hematuria. POSTOPERATIVE DIAGNOSES: 1. Interstitial cystitis. 2. Urethral stenosis. 3. Urinary tract infections. 4. Hematuria. 5. Grade 2-3 cystocele. 6. Small rectocele. 7. Atrophic (senile) vaginitis. PROCEDURES PERFORMED: 1. Cystourethroscopy with bilateral ureteral catheterization and retrograde ureteropyelography (separate procedure performed for hematuria and urinary tract infections). 2. Cystourethroscopy with dilation of urethral stenosis (separate procedure performed for diagnosis of stenosis). 3. Cystourethroscopy with hydrodistention (separate procedure performed to help manage the patient's interstitial cystitis and its symptomatology). 4. Interpretation of retrograde ureteropyelography. 5. Supervision of fluoroscopy, no radiologist present. 6. Pelvic examination under anesthesia. ANESTHESIA: General. COMPLICATIONS: None. CLINICAL SUMMARY: Maria L Stokes is an 84-year-old woman with the above preoperative diagnoses. She was brought for the above procedures. She is aware of the risks of bleeding, infection, injury to adjacent structures, need for additional procedures and elected to proceed. OPERATIVE PROCEDURE IN DETAIL: Informed consent was verified. Maria L Stokes was properly identified, taken to the operating room and placed on the cystoscopy table in supine position. Anesthesia was uneventfully begun. The patient was then carefully gently repositioned in dorsal lithotomy position with all pressure points well padded. Her genitalia were prepared and draped in the usual sterile fashion. The cystoscope sheath with obturator in place was atraumatically inserted into the patient's urethra and the bladder was drained. Panendoscopy of the bladder revealed no suspicious mucosal lesions, no tumors, no stones, and no diverticula. There were heavy trabeculations noted. 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 Ureteral catheter was used to cannulate each ureter and retrograde ureteropyelograms were performed. Interpretation of retrograde ureteropyelography contrast was instilled in retrograde fashion bilaterally. There were no tumors, no stones, no diverticula. Unobstructed drainage was observed fluoroscopically. There was rather significant tortuosity of both ureters. The bladder was then filled at 80 cm of water height and held in place for exactly 2 minutes. This revealed a bladder capacity under anesthesia of about 1000 mL. After this, panendoscopy revealed bloody bladder wall and oozing that was minimal. The patient's bladder was drained. Cystoscope withdrawn. We completed dilation of the patient's urethral stenosis as we dilated from a 24-Swiss to 30-Swiss. Pelvic examination under anesthesia revealed a grade 2-3 cystocele, which is worst than cystocele was previously. There is also rectocele as well as atrophic vaginitis. The patient was then uneventfully reversed from anesthesia and taken to the recovery room in stable condition. Explicit postop instructions were given and we will follow the patient up in the office. Harris MD IMAN Wallace/EMILY /[id number] cc: Rafaela Dorantes MD
== END | disposition home or self-care (01) ==
LOC: OR 12:40
PROVIDERS: ATTEND Urology
DX: N30.10 Interstitial cystitis (chronic) without hematuria (principal); N35.92 Unspecified urethral stricture, female; N13.8 Other obstructive and reflux uropathy; N81.89 Other female genital prolapse; N81.10 Cystocele, unspecified; N81.6 Rectocele; N95.2 Postmenopausal atrophic vaginitis; N32.89 Other specified disorders of bladder; I10 Essential (primary) hypertension; J45.909 Unspecified asthma, uncomplicated; R91.1 Solitary pulmonary nodule; E03.9 Hypothyroidism, unspecified; H91.90 Unspecified hearing loss, unspecified ear; K21.9 Gastro-esophageal reflux disease without esophagitis; I45.10 Unspecified right bundle-branch block; Z01.810 Encounter for preprocedural cardiovascular examination; Z01.812 Encounter for preprocedural laboratory examination; Z01.818 Encounter for other preprocedural examination; Z11.59 Encounter for screening for other viral diseases
CPT/HCPCS: 36415; 52260; 71046; 74420; 80048; 85025; 93005; C1758; J1100; J2001; J2405; J2543; J2704; Q9967; U0002